=== PATIENT | female | born 1970 ===

== ENCOUNTER 2021-07-17 08:22 | Outpatient (REF) | payer OTHER, SELFPAY ==
[2021-07-17 11:04] LABS: MANUAL DIFF FLAG NO
[2021-07-17 11:19] LABS: Basophils Absolute Auto 0.1 X10*3/uL (0.0-0.2); Basophils Percent Auto 1.2 % (0-2); Eosinophils Absolute Auto 0.5 X10*3/uL (0.0-0.4); Eosinophils Percent Auto 10.7 % (0-4); Hematocrit 41.5 % (37.0-47.0); Hemoglobin 13.9 g/dl (12.0-16.0); Imm Gran Abs Auto 0.01 X10*3/uL (0.00-0.03); Imm Gran Pct Auto 0.2 % (0.0-0.4); Lymphocytes Absolute Auto 1.4 X10*3/uL (1.2-4.9); Lymphocytes Percent Auto 32.5 % (20-40); Mean Corpuscular HGB Conc 33.5 g/dl (31.0-35.0); Mean Corpuscular Hemoglobin 28.8 pg (27.0-33.0); Mean Corpuscular Volume 86.1 fL (80.0-98.0); Monocytes Absolute Auto 0.4 X10*3/uL (0.1-1.2); Monocytes Percent Auto 9.8 % (2-11); Neutrophils Absolute Auto 1.9 x10*3/uL (2.0-8.3); Neutrophils Percent Auto 45.6 % (45-73); Platelet Count 220 X10*3/uL (160-400); Red Blood Count 4.82 X10*6/uL (4.20-5.50); White Blood Count 4.2 X10*3/uL (4.8-10.8)
[2021-07-17 11:37] LABS: Alanine Aminotransferase 80 U/L (0-31); Albumin Level 4.3 g/dL (3.5-5.0); Alkaline Phosphatase 156 U/L (39-117); Anion Gap 9 (12-20); Aspartate Amino Transferase 59 U/L (5-31); Bilirubin Total 0.7 mg/dL (0.0-1.0); Blood Urea Nitrogen 12 mg/dL (9-16); Calcium 9.9 mg/dL (8.4-10.2); Carbon Dioxide 28 mmol/L (22-29); Chloride 105 mmol/L (96-108); Cholesterol 223 mg/dL; Estimated Glomerular Filt Rate > 60; Glucose Fasting 94 mg/dL (60-99); HDL Cholesterol 62 mg/dL; LDL Cholesterol Calculated 135 mg/dl; Potassium 4.3 mmol/L (3.3-5.1); Sodium 138 mmol/L (135-145); Total Protein 7.2 g/dL (6.5-8.0); Triglycerides 131 mg/dL
[2021-07-17 11:54] LABS: TSH reflex Free T4 0.88 uIU/mL (0.32-4.0)
== END 2021-07-17 08:23 | disposition home or self-care (01) ==
LOC: HO.HMGCLDS 08:22
PROVIDERS: Visit Provider Internal Medicine
DX: Z00.01 Encounter for general adult medical examination with abnormal findings (principal); E03.8 Other specified hypothyroidism; E66.09 Other obesity due to excess calories; H91.92 Unspecified hearing loss, left ear
CPT/HCPCS: 36415; 80053; 80061; 84443; 85025

== ENCOUNTER 2021-11-03 12:06 | Emergency (ER) | payer OTHER, SELFPAY ==
--- NOTE | ~2021-11-03 | CT_ITS ---
EXAMINATION: CT ABDOMEN AND PELVIS WITHOUT CONTRAST CLINICAL INFORMATION: Abdominal pain COMPARISON: None TECHNIQUE: Multidetector volumetric imaging was performed from the superior aspect of the liver through the pubic symphysis. Sagittal and coronal reformatted images were obtained on the technologist's workstation. This CT examination was performed using dose optimization techniques as appropriate, variously including the following: *Automated exposure control *Adjustment of mA and/or kV according to patient size (this includes techniques or standardized protocols for targeted exams where dose is matched to indication/reason for exam; i.e. extremities or head) *Use of iterative reconstruction technique DLP: 574r mGy-cm FINDINGS: LUNG BASES: The visualized lung bases are unremarkable. LIVER, GALLBLADDER, AND BILIARY TREE: The liver is normal in size, shape, and attenuation. No focal hepatic lesion or biliary ductal dilatation is present. The gallbladder is unremarkable with no evidence of radiopaque gallstones, gallbladder wall thickening, or obvious pericholecystic inflammatory changes. PANCREAS: Unremarkable. SPLEEN: Unremarkable. A tiny splenule is seen. ADRENAL GLANDS: Unremarkable. KIDNEYS AND URETERS: The kidneys are normal in size, shape, and attenuation. There is a 2 cm Bosniak class I right renal cyst present which needs no further imaging or follow-up. No solid renal masses are seen. No hydronephrosis, hydroureter, or calculi seen. No perinephric stranding. BLADDER: Unremarkable. GASTROINTESTINAL TRACT: The small and large bowel are unremarkable aside from scattered colonic diverticula without diverticulitis.. The appendix is unremarkable. ABDOMINAL WALL: No significant hernia is appreciated. LYMPH NODES: Normal. VASCULAR: Unremarkable. PELVIC VISCERA: Unremarkable. OSSEOUS STRUCTURES: Unremarkable. CT/CT abdomen pelvis wo con IMPRESSION: No significant abnormality is detected. Fleischner guidelines were followed.
--- NOTE | ~2021-11-03 | US_ITS ---
EXAMINATION: US ABDOMEN LIMITED CLINICAL INFORMATION: Right upper quadrant abdominal pain. Elevated LFTs.. COMPARISON: CT from today. TECHNIQUE: Real-time imaging of the right upper quadrant abdominal viscera. FINDINGS: PANCREAS: Normal. LIVER: Normal. The liver is normal in size. The liver contour is normal. Parenchymal echogenicity is normal. No focal hepatic lesion. There is no intrahepatic biliary duct dilatation seen. GALLBLADDER: Normal. The gallbladder is physiologically distended without evidence of stones, sludge, polyps, wall thickening or pericholecystic fluid. COMMON BILE DUCT: Normal in caliber measuring 0.3 cm in diameter. RIGHT KIDNEY: Septated cyst at the midpole measuring 1.8 cm . Thin internal septation without nodularity or Doppler vascularity. No hydronephrosis. No renal calculi or solid parenchymal lesions. The kidney measures 10.7 cm in maximum dimension. FREE FLUID: None. US/US abdomen limited IMPRESSION: No acute abnormality. Normal appearance of the gallbladder. Cyst with thin internal septation of the right kidney. This is likely Bosniak 2.
[2021-11-03 12:49] VITALS: BP 139/82; PULSE 64; RESP 17; TEMP 36.3; O2SAT 99; BMI 32.3
[2021-11-03] MEDS: Ondansetron ODT 4 MG TAB.RAPDIS TRANSLINGU (15:58)
[2021-11-03 16:05] LABS: MANUAL DIFF FLAG NO
[2021-11-03 16:07] LABS: Basophils Percent Auto 0.8 % (0-2); Eosinophils Absolute Auto 0.3 X10*3/uL (0.0-0.4); Eosinophils Percent Auto 5.9 % (0-4); Hemoglobin 13.6 g/dl (12.0-16.0); Imm Gran Abs Auto 0.02 X10*3/uL (0.00-0.03); Imm Gran Pct Auto 0.4 % (0.0-0.4); Lymphocytes Absolute Auto 1.2 X10*3/uL (1.2-4.9); Lymphocytes Percent Auto 26.1 % (20-40); Mean Corpuscular Hemoglobin 28.4 pg (27.0-33.0); Mean Corpuscular Volume 83.5 fL (80.0-98.0); Mean Platelet Volume 10.1 fL (9.4-12.3); Monocytes Absolute Auto 0.4 X10*3/uL (0.1-1.2); Monocytes Percent Auto 8.3 % (2-11); Neutrophils Absolute Auto 2.8 x10*3/uL (2.0-8.3); Neutrophils Percent Auto 58.5 % (45-73); Platelet Count 176 X10*3/uL (160-400); Red Blood Count 4.79 X10*6/uL (4.20-5.50); Red Cell Distribution Width 12.1 % (11.0-16.0); White Blood Count 4.7 X10*3/uL (4.8-10.8)
[2021-11-03 16:33] LABS: Alanine Aminotransferase 67 U/L (0-31); Albumin Level 4.4 g/dL (3.5-5.0); Alkaline Phosphatase 164 U/L (39-117); Anion Gap 13 (12-20); Aspartate Amino Transferase 54 U/L (5-31); Bilirubin Total 0.7 mg/dL (0.0-1.0); Blood Urea Nitrogen 9 mg/dL (9-16); Calcium 9.3 mg/dL (8.4-10.2); Carbon Dioxide 25 mmol/L (22-29); Chloride 105 mmol/L (96-108); Creatinine Clr Calc Pharmacy 80.8; Estimated Glomerular Filt Rate > 60; Glucose Random 126 mg/dL (60-115); Lipase 27 U/L (8-78); Potassium 3.8 mmol/L (3.3-5.1); Sodium 139 mmol/L (135-145); Total Protein 7.1 g/dL (6.5-8.0)
--- NOTE | 2021-11-03 17:26 | ED_ITS ---
HPI - Abdominal Pain General Chief Complaint: Abdominal Pain Stated Complaint: abd pain, called Time Seen by Provider: 11/03/21 17:51 Source: patient Mode of arrival: ambulatory Limitations: no limitations History of Present Illness HPI narrative: 51-year-old female presents for right upper abdominal pain that worsens when she eats. Has been present for approximately 2-3 days, and is accompanied by nausea. She was evaluated at urgent care today and was referred to the emergency department for suspected cholecystitis. MD elicited complaint: abdominal pain Pertinent past history: none Onset (ago): day(s) (3) Pain Consistency: constant Location: RUQ Severity: moderate Pain scale (0-10): 6 Quality: aching Radiation: none Migration to: no migration Exacerbating factors: eating and movement Relieving factors: nothing Associated symptoms: nausea Related Data Previous Rx's Medication Instructions Recorded levothyroxine 88 mcg tablet 88 mcg PO DAILY 90 days #90 tabs 10/21/21 Allergies Allergy/AdvReac Type Severity Reaction Status Date / Time shellfish derived Allergy Unknown rash Verified 11/03/21 11:28 acetaminophen [From Percocet] AdvReac Mild Hypotension Verified 11/03/21 11:28 oxycodone [From Percocet] AdvReac Mild Hypotension Verified 11/03/21 11:28 ibuprofen [From Motrin] AdvReac Palpitation Verified 11/03/21 19:38 s Review of Systems Review of Systems Constitutional: No Weight loss, No Fever, No Chills, No Night Sweats, No Fatigue, No Malaise ENT/Mouth: No Hearing loss, No Ear Pain, No Nasal Congestion, No Sinus Pain, No Hoarseness, No sore throat, No Rhinorrhea, No Swallowing Difficulty Eyes: No Eye Pain, No Swelling, No Redness, No Foreign Body, No Discharge, No Vision Changes Cardiovascular: No Chest Pain, No SOB, No Dyspnea on Exertion, No Orthopnea, No Edema, No Palpitations Respiratory: No Cough, No Sputum, No Wheezing, No Smoke Exposure, No Dyspnea Gastrointestinal: Positive Nausea, no Vomiting, no Diarrhea, positive abdominal Pain, No Hematochezia, No Melena Genitourinary: no irregular bleeding, No Dysuria, No Urinary Frequency, No Hematuria, No Urinary Incontinence, No Urgency, No Flank Pain, No Urinary Flow Changes, No Hesitancy Musculoskeletal: No joint pain, No Myalgias, No Joint Swelling Skin: No Skin Lesions, No rash Neuro: No Weakness, No Numbness, No Paresthesias, No Loss of Consciousness, No Dizziness, No Headache Psych: No Anxiety/Panic, No Depression, No SI/HI/AH/VH, No Social Issues Heme/Lymph: No Bruising, No Bleeding,No Lymphadenopathy Endocrine: No Polyuria, No Polydipsia, No Temperature Intolerance Yes all other systems are reviewed and are negative [facility] Past Medical History Attestation statement: The following information was validated with the patient. Source: old records reviewed Medical History Asthma Hyperthyroidism Social History Social History Housing: House Patient Tobacco Use Status: Never used Tobacco Advance Directives: No Advance Directives Information Provided: No Current occupational status: employed Physical Exam ED Vital Signs: Vital Signs - 24 hr 11/03/21 12:49 11/03/21 20:43 Temperature 97.3 F 99.0 F Pulse Rate 64 61 Respiratory Rate 17 18 Blood Pressure 139/82 124/69 Pulse Oximetry 99 98 Oxygen Delivery Method Room Air Room Air BMI result Body Mass Index 32.3 Appearance: Alert. Oriented X3. No acute distress. Eyes: Pupils equal, round and reactive to light. Sclera nonicteric. ENT: Pharynx normal. Neck: Normal inspection. Neck supple. CVS: Normal heart rate and rhythm. Pulses normal. Respiratory: No respiratory distress. Breath sounds normal. Abdomen: Soft and positive McBurney's. No distention or rigidity noted. Skin: Skin warm and dry. Normal skin color. Normal skin turgor. Extremities: No lower extremity edema. Gait well-balanced well coordinated. Neuro: No motor deficit. No sensory deficit. Cranial nerves 2-12 intact. Course Course Course Narrative: 51-year-old female presents with 3 days of abdominal pain and nausea. Has a history of elevated LFTs. Was evaluated at urgent care earlier today and was referred to ED for suspected cholecystitis versus cholelithiasis. Lab values drawn while patient was in the emergency department waiting room. Elevated AST ALT alk-phos consistent with prior values dating back to July of 2021. Will order CT scan and right upper quadrant abdominal U/S. 19:45 order for Fioricet. Patient declined Toradol that was prescribed earlier. Stated that NSAIDs give her elevated heart rates. CT and abdominal ultrasound negative for acute findings. Will have patient follow-up with Gastroenterology. She does have someone she is established with at [facility], but would like a referral at this facility. referral to Dr. Benson. Patient verbalized understanding of and agrees to plan of care discharge home. Verbalized understanding of signs and symptoms indicating need for emergent intervention. MDM - Abdominal Pain Differential Diagnosis Differential diagnosis: Likely abdominal pain, calculus of kidney, gastroenteritis and pancreatitis Differential diagnosis narrative:: Cholecystitis, cholelithiasis Medical Records Attestation: I reviewed the patient's medical records. Lab Data Attestation: I reviewed the patient's lab results. Result diagrams: 11/03/21 16:00 11/03/21 16:00 Labs: Lab Results 11/03/21 11/03/21 Range/Units 16:00 16:00 WBC 4.7 L (4.8-10.8) X10*3/uL RBC 4.79 (4.20-5.50) X10*6/uL Hgb 13.6 (12.0-16.0) g/dl Hct 40.0 (37.0-47.0) % MCV 83.5 (80.0-98.0) fL MCH 28.4 (27.0-33.0) pg MCHC 34.0 (31.0-35.0) g/dl RDW 12.1 (11.0-16.0) % Plt Count 176 (160-400) X10*3/uL MPV 10.1 (9.4-12.3) fL Immature Gran % (Auto) 0.4 (0.0-0.4) % Neut % (Auto) 58.5 (45-73) % Lymph % (Auto) 26.1 (20-40) % [place] % (Auto) 8.3 (2-11) % Eos % (Auto) 5.9 H (0-4) % Baso % (Auto) 0.8 (0-2) % Lymph # (Auto) 1.2 (1.2-4.9) X10*3/uL [place] # (Auto) 0.4 (0.1-1.2) X10*3/uL Eos # (Auto) 0.3 (0.0-0.4) X10*3/uL Baso # (Auto) 0.0 (0.0-0.2) X10*3/uL Abs Immat Gran (auto) 0.02 (0.00-0.03) X10*3/uL Absolute Neuts (auto) 2.8 (2.0-8.3) x10*3/uL Absolute Nucleated RBC 0.000 (0.0-0.012) X10*3/uL Nucleated RBC % (auto) 0.0 (0.0-0.2) /100WBC Sodium 139 (135-145) mmol/L Potassium 3.8 (3.3-5.1) mmol/L Chloride 105 (96-108) mmol/L Carbon Dioxide 25 (22-29) mmol/L Anion Gap 13 (12-20) BUN 9 (9-16) mg/dL Creatinine 0.73 (0.5-1.4) mg/dL Estim Creat Clear Calc 80.8 Estimated GFR > 60 Random Glucose 126 H (60-115) mg/dL Calcium 9.3 D (8.4-10.2) mg/dL Total Bilirubin 0.7 (0.0-1.0) mg/dL AST 54 H (5-31) U/L ALT 67 H (0-31) U/L Alkaline Phosphatase 164 H (39-117) U/L Total Protein 7.1 (6.5-8.0) g/dL Albumin 4.4 (3.5-5.0) g/dL Lipase 27 (8-78) U/L Imaging Data CT scan - abdomen: Attestation: I personally reviewed and interpreted this imaging study as follows: Radiologist's impression: FINDINGS: LUNG BASES: The visualized lung bases are unremarkable.? LIVER, GALLBLADDER, AND BILIARY TREE: The liver is normal in size, shape, and attenuation. No focal hepatic lesion or biliary ductal dilatation is present. The gallbladder is unremarkable with no evidence of radiopaque gallstones, gallbladder wall thickening, or obvious pericholecystic inflammatory changes.? PANCREAS: Unremarkable.? SPLEEN: Unremarkable. A tiny splenule is seen. ADRENAL GLANDS: Unremarkable.? KIDNEYS AND URETERS: The kidneys are normal in size, shape, and attenuation. There is a 2 cm Bosniak class I right renal cyst present which needs no further imaging or follow-up. No solid renal masses are seen. No hydronephrosis, hydroureter, or calculi seen. No perinephric stranding. ? BLADDER: Unremarkable.? GASTROINTESTINAL TRACT: The small and large bowel are unremarkable aside from scattered colonic diverticula without diverticulitis.. The appendix is unremarkable.? ABDOMINAL WALL: No significant hernia is appreciated.? LYMPH NODES: Normal. VASCULAR: Unremarkable. PELVIC VISCERA: Unremarkable.? OSSEOUS STRUCTURES: Unremarkable.? CT/CT abdomen pelvis wo con IMPRESSION: No significant abnormality is detected.? ? Fleischner guidelines were followed. Discharge Plan Discharge Clinical Impression: Abdominal pain, Elevated liver enzymes Patient Disposition: Home, Self-Care Instructions: Low Fat Diet (ED), Abdominal Pain (ED) Additional Instructions: You were evaluated for abdominal pain. Your liver enzymes are elevated. They are similar to your prior values in July of 2021. Please follow-up with Gastroenterology. I have referred you to Dr. Benson. Please call and request an appointment for evaluation. Your CT scan and ultrasound of the gallbladder are negative for acute findings. Drink plenty of fluids. Please follow a low-fat gallbladder diet. This may improve your symptoms. Thank you for choosing this emergency department for evaluation. Please follow-up with primary care physician as needed. Return to the emergency department for any new, concerning, or worsening symptoms. Prescriptions: No Action levothyroxine 88 mcg tablet 88 mcg PO DAILY 90 Days Qty: 90 0RF Referrals: Dior Benson MD [Physician] - 1 week (Elevated liver enzymes.) Stand Alone Forms: Work/School Release Interventions: ED Discharge Assessment Last Done: 11/03/21 20:48 Discharge Date/Time: 11/03/21 20:50
[2021-11-03] MEDS: 0.9 % Sodium Chloride 1,000 ML 999 ML IVCONT (19:24)
--- NOTE | 2021-11-03 19:40 | PC.NURSE ---
per pt, Motrin/ibuprofen makes my hr fast i do not want the toradol.
[2021-11-03] MEDS: Butalb/Acetamin/Caff 50/325/40 TABLET 1 TAB PO (19:58)
[2021-11-03 20:43] VITALS: BP 124/69; PULSE 61; RESP 18; TEMP 37.2; O2SAT 98
== END 2021-11-03 20:50 | disposition home or self-care (01) ==
PROVIDERS: Emergency Provider Emergency Medicine; PCP Internal Medicine
DX: R10.11 Right upper quadrant pain (principal); R74.8 Abnormal levels of other serum enzymes
CPT/HCPCS: 36415; 74176; 76705; 80053; 83690; 85025; 96361; 96374; 99283; 99284

== ENCOUNTER 2021-12-01 14:17 | Outpatient (REF) | payer OTHER, SELFPAY ==
[2021-12-01 15:17] LABS: Gamma Glutamyl Transpeptidase 504 U/L (7-33)
[2021-12-01 15:36] LABS: Thyroid Stimulating Hormone 0.34 uIU/mL (0.32-4.0)
[2021-12-02 09:39] LABS: HBS Num1 > 1000.00 mIU/mL (0-7.99); HBc Num1 0.07 S/CO (0.00-0.79); Hepatitis B Core Antibody Nonreactive (Nonreactive); Hepatitis B Surface Antigen Negative (Negative); ~Hepatitis B Surface Antibody REACTIVE (Nonreactive); ~Hepatitis C Antibody Nonreactive (Nonreactive)
[2021-12-03 04:41] LABS: Hepatitis A Antibody IgM 0.19 Index (0-0.79); ~Hepatitis A Antibody IgM Nonreactive (Nonreactive)
[2021-12-03 15:02] LABS: Alpha 1 Anti-trypsin 152 mg/dL (83-199); Ceruloplasmin 34 mg/dL (18-53)
[2021-12-06 21:26] LABS: ANA Pattern 2 Nuclear, Centromere; Anti Nuclear Antibody Screen POSITIVE (NEGATIVE)
[2021-12-07 11:37] LABS: Smooth Muscle Antibody <20 U (<20)
[2021-12-08 11:46] LABS: Mitochondrial Antibodies POSITIVE (NEGATIVE)
== END 2021-12-01 14:18 | disposition home or self-care (01) ==
LOC: HO.LAB 14:17
PROVIDERS: Visit Provider Physician Assistant
DX: K59.09 Other constipation (principal); R74.01 Elevation of levels of liver transaminase levels; R74.8 Abnormal levels of other serum enzymes; R79.89 Other specified abnormal findings of blood chemistry
CPT/HCPCS: 36415; 82103; 82390; 82977; 84443; 86015; 86038; 86039; 86255; 86256; 86704; 86706; 86709; 86803; 87340

== ENCOUNTER 2021-12-02 12:34 | Outpatient (REF) | payer OTHER, SELFPAY | END 2021-12-02 12:35 | disposition home or self-care (01) | LOC: HO.LNP 12:34 | PROVIDERS: Visit Provider Physician Assistant | DX: A04.8 Other specified bacterial intestinal infections (principal) | CPT/HCPCS: 87338 ==

== ENCOUNTER 2021-12-06 16:28 | Emergency (ER) | payer OTHER, SELFPAY ==
[2021-12-06 18:19] VITALS: BP 123/65; PULSE 64; RESP 18; TEMP 36.7; O2SAT 100; BMI 32.3
[2021-12-06 18:35] LABS: MANUAL DIFF FLAG NO
[2021-12-06 18:40] LABS: Basophils Percent Auto 0.8 % (0-2); Eosinophils Absolute Auto 0.1 X10*3/uL (0.0-0.4); Eosinophils Percent Auto 1.7 % (0-4); Hematocrit 39.5 % (37.0-47.0); Hemoglobin 13.6 g/dl (12.0-16.0); Imm Gran Abs Auto 0.02 X10*3/uL (0.00-0.03); Imm Gran Pct Auto 0.4 % (0.0-0.4); Lymphocytes Absolute Auto 1.1 X10*3/uL (1.2-4.9); Lymphocytes Percent Auto 20.8 % (20-40); Mean Corpuscular HGB Conc 34.4 g/dl (31.0-35.0); Mean Corpuscular Hemoglobin 28.4 pg (27.0-33.0); Mean Corpuscular Volume 82.5 fL (80.0-98.0); Mean Platelet Volume 10.1 fL (9.4-12.3); Monocytes Absolute Auto 0.4 X10*3/uL (0.1-1.2); Monocytes Percent Auto 7.2 % (2-11); Neutrophils Absolute Auto 3.6 x10*3/uL (2.0-8.3); Neutrophils Percent Auto 69.1 % (45-73); Platelet Count 201 X10*3/uL (160-400); Red Blood Count 4.79 X10*6/uL (4.20-5.50); White Blood Count 5.3 X10*3/uL (4.8-10.8)
[2021-12-06 19:09] LABS: Alanine Aminotransferase 56 U/L (0-31); Albumin Level 4.5 g/dL (3.5-5.0); Alkaline Phosphatase 155 U/L (39-117); Anion Gap 14 (12-20); Aspartate Amino Transferase 54 U/L (5-31); Bilirubin Total 0.7 mg/dL (0.0-1.0); Blood Urea Nitrogen 9 mg/dL (9-16); Calcium 9.9 mg/dL (8.4-10.2); Carbon Dioxide 23 mmol/L (22-29); Chloride 103 mmol/L (96-108); Creatinine Clr Calc Pharmacy 73.8; Estimated Glomerular Filt Rate > 60; Glucose Random 117 mg/dL (60-115); Lipase 14 U/L (8-78); Potassium 4.1 mmol/L (3.3-5.1); Sodium 136 mmol/L (135-145); Total Protein 7.3 g/dL (6.5-8.0)
[2021-12-06 19:25] LABS: Appearance Urine HAZY; Color Urine YELLOW; Glucose Urine UA NEG (NEG); Leukocyte Esterase Urine NEG (NEG); Nitrite Urine NEG (NEG); UACC Culture Trigger NO; Urine Blood TRACE (NEG); Urine Ketones NEG (NEG); Urine Protein NEG (NEG-TRACE)
[2021-12-06 19:30] LABS: WBC Urine 0 /HPF (0-4)
[2021-12-06 19:31] LABS: Amorphous Sediment Urine 1+ /LPF; Bacteria Urine 1+ /LPF; RBC Urine 0-2 /HPF (0); Squamous Epithelial Cell Urine 1+ /LPF
[2021-12-07 00:13] LABS: UPreg QC Valid YES; Urine Pregnancy NEGATIVE (NEGATIVE)
--- NOTE | 2021-12-07 00:42 | ED_ITS ---
HPI - General Adult General Chief complaint: Abdominal Pain Stated complaint: Pain through Back Dizzy Fever Time Seen by Provider: 12/06/21 23:54 Source: patient Mode of arrival: ambulatory Limitations: no limitations History of Present Illness HPI narrative: 51 yold female presents to the ED for intermittent right upper qaudrant abdominal pain/flank pain. patient was seen her for the same similiar presentation which showed fatty liver with elevated liver enzymes. THere was no gallstones. patient states she went to another hospital with normal imaged and two gasteroenterologists and still has the pain. patient was seen last night at [facility] and she states she had a normal workup. patient denies any recent trauma, shorteness of breath, chest pain, pluerisy, dysuria, hemautira, fever, chills, vomitting, vaginal bleeding, control use, leg swelling, calf pain or rectal bleeding. patient admits to [facility]. Related Data Previous Rx's Medication Instructions Recorded levothyroxine 88 mcg tablet 88 mcg PO DAILY 90 days #90 tabs 10/21/21 tramadol 50 mg tablet 50 mg PO DAILY PRN pain 10 days 11/05/21 #10 tabs bisacodyl 5 mg tablet,delayed 10 mg PO ONCE colonoscopy prep 1 11/10/21 release (Dulcolax (bisacodyl)) day #2 tabs polyethylene glycol 3350 17 238 g PO ONCE 1 day #238 grams 11/10/21 gram/dose oral powder (Miralax) cyclobenzaprine 10 mg tablet 10 mg PO TID PRN muscle spasm 7 12/07/21 days #21 tabs Allergies Allergy/AdvReac Type Severity Reaction Status Date / Time shellfish derived Allergy Unknown rash Verified 12/06/21 18:19 oxycodone [From Percocet] AdvReac Mild Hypotension Verified 12/06/21 18:19 ibuprofen [From Motrin] AdvReac Palpitation Verified 12/06/21 18:19 s [facility] Past Medical History Medical History Asthma Hyperthyroidism Family History Family History (Updated 11/10/21 @ 13:07 by Casandra Childs PA-C) Unknown No family history of colorectal cancer Social History Social History (Updated 11/10/21 @ 13:09 by Casandra Childs PA-C) Household Members Other:: - 1 son at home Housing: House Patient Tobacco Use Status: Never used Tobacco Current occupational status: employed Physical Exam ED Vital Signs: Vital Signs - 24 hr 12/06/21 18:19 Temperature 98.1 F Pulse Rate 64 Respiratory Rate 18 Blood Pressure 123/65 Pulse Oximetry 100 Oxygen Delivery Method Room Air BMI result Body Mass Index 32.3 Const General: cooperative, healthy appearing, comfortable, no acute distress, well developed, alert, awake and Physically active Orientation/consciousness: oriented to time and patient oriented x3 HENMT Head: Yes normal to inspection, Yes No palpable skull fracture present, Yes norm ocephalic, Yes atraumatic and No abrasion Eyes General: appearance normal, both eyes and all related structures Neck Neck: Yes normal visual inspection, Yes full ROM, Yes no lymphadenopathy, Yes no meningeal signs, Yes trachea midline, Yes supple, No anterior neck swelling and No tender Chest Chest palpation & inspection: normal inspection of the chest and normal palpation of entire chest wall Resp Effort & Inspection: normal respiratory effort and able to speak in complete sentences Auscultation: clear to auscultation bilaterally Cardio Jugular venous distension: no JVD Heart sounds: S1 normal heart sound present and S2 normal heart sound present GI Inspection: Yes normal to inspection and No abdominal wall ecchymosis Palpation (GI): Soft to palpation, not firm, nontender, no guarding and not rigid General: No CVA tenderness and Yes no CVA tenderness Back/Spine/Pelvis Other: Positive for right sided back pain on range of motion. Back: no CVA tenderness, No CVA tenderness and No back tenderness Skin General skin exam: no rashes or lesions noted, elasticity normal and turgor normal Neuro General: oriented to time, patient oriented x3, gait normal, no meningeal signs and CN's II-XI intact bilaterally Cranial nerves: Yes CN's II-XII intact bilaterally Extrem General: Yes normal to inspection and Yes full ROM Psych Appearance: grossly normal, well kempt and not disheveled Course Course Course Narrative: Labs were ordered by triage. Reevaluation(s) Reevaluation #1: Patient labs came back at baseline including LFTs. Presently no abdominal or spine tenderness. I received [facility] notes and review them. Ultrasound of abdomen showed same hepaitis steatosis. Labs were at baseline. No need for repeat imaging. Not suspecting any medical/surgical etiology of abdomen/pelvis/spine. Patient states she has never taken any pain meds. patient not able to take tylenol. patient does not want narcotics and can not take NSAIDS ( palpitations). patient informed to follow up [facility] PCP. states this episode of pain began after patient turned her back awkardly waking up from sleep suddenly and than had the right sided back pain radiationg to the abdomen that was worse on movement. With this information will discharge with muscle relaxer Time: 12:56 Medical Decision Making MDM Narrative Medical decision making narrative: abdominal pain. muscle spasm Lab Data Result diagrams: 12/06/21 18:30 12/06/21 18:30 Labs: Lab Results 12/06/21 12/06/21 12/06/21 Range/Units 18:30 18:30 19:13 WBC 5.3 (4.8-10.8) X10*3/uL RBC 4.79 (4.20-5.50) X10*6/uL Hgb 13.6 (12.0-16.0) g/dl Hct 39.5 (37.0-47.0) % MCV 82.5 (80.0-98.0) fL MCH 28.4 (27.0-33.0) pg MCHC 34.4 (31.0-35.0) g/dl RDW 12.0 (11.0-16.0) % Plt Count 201 (160-400) X10*3/uL MPV 10.1 (9.4-12.3) fL Immature Gran % (Auto) 0.4 (0.0-0.4) % Neut % (Auto) 69.1 (45-73) % Lymph % (Auto) 20.8 (20-40) % [place] % (Auto) 7.2 (2-11) % Eos % (Auto) 1.7 (0-4) % Baso % (Auto) 0.8 (0-2) % Lymph # (Auto) 1.1 L (1.2-4.9) X10*3/uL [place] # (Auto) 0.4 (0.1-1.2) X10*3/uL Eos # (Auto) 0.1 (0.0-0.4) X10*3/uL Baso # (Auto) 0.0 (0.0-0.2) X10*3/uL Abs Immat Gran (auto) 0.02 (0.00-0.03) X10*3/uL Absolute Neuts (auto) 3.6 (2.0-8.3) x10*3/uL Absolute Nucleated RBC 0.000 (0.0-0.012) X10*3/uL Nucleated RBC % (auto) 0.0 (0.0-0.2) /100WBC Sodium 136 (135-145) mmol/L Potassium 4.1 (3.3-5.1) mmol/L Chloride 103 (96-108) mmol/L Carbon Dioxide 23 (22-29) mmol/L Anion Gap 14 (12-20) BUN 9 (9-16) mg/dL Creatinine 0.80 (0.5-1.4) mg/dL Estim Creat Clear Calc 73.8 Estimated GFR > 60 Random Glucose 117 H (60-115) mg/dL Calcium 9.9 D (8.4-10.2) mg/dL Total Bilirubin 0.7 (0.0-1.0) mg/dL AST 54 H (5-31) U/L ALT 56 H (0-31) U/L Alkaline Phosphatase 155 H (39-117) U/L Total Protein 7.3 (6.5-8.0) g/dL Albumin 4.5 (3.5-5.0) g/dL Lipase 14 (8-78) U/L Urine Color YELLOW Urine Appearance HAZY Urine pH 7.0 (5.0-8.0) Ur Specific [place] 1.010 (1.005-1.025) Urine Protein NEG (NEG-TRACE) MG/DL Urine Glucose (UA) NEG (NEG) MG/DL Urine Ketones NEG (NEG) MG/DL Urine Blood TRACE (NEG) Urine Nitrite NEG (NEG) Ur Leukocyte Esterase NEG (NEG) Urine RBC 0-2 (0) /HPF Urine WBC 0 (0-4) /HPF Ur Squamous Epith Cells 1+ /LPF Amorphous Sediment 1+ /LPF Urine Bacteria 1+ /LPF Urine Test (NEGATIVE) 12/06/21 Range/Units 19:13 WBC (4.8-10.8) X10*3/uL RBC (4.20-5.50) X10*6/uL Hgb (12.0-16.0) g/dl Hct (37.0-47.0) % MCV (80.0-98.0) fL MCH (27.0-33.0) pg MCHC (31.0-35.0) g/dl RDW (11.0-16.0) % Plt Count (160-400) X10*3/uL MPV (9.4-12.3) fL Immature Gran % (Auto) (0.0-0.4) % Neut % (Auto) (45-73) % Lymph % (Auto) (20-40) % [place] % (Auto) (2-11) % Eos % (Auto) (0-4) % Baso % (Auto) (0-2) % Lymph # (Auto) (1.2-4.9) X10*3/uL [place] # (Auto) (0.1-1.2) X10*3/uL Eos # (Auto) (0.0-0.4) X10*3/uL Baso # (Auto) (0.0-0.2) X10*3/uL Abs Immat Gran (auto) (0.00-0.03) X10*3/uL Absolute Neuts (auto) (2.0-8.3) x10*3/uL Absolute Nucleated RBC (0.0-0.012) X10*3/uL Nucleated RBC % (auto) (0.0-0.2) /100WBC Sodium (135-145) mmol/L Potassium (3.3-5.1) mmol/L Chloride (96-108) mmol/L Carbon Dioxide (22-29) mmol/L Anion Gap (12-20) BUN (9-16) mg/dL Creatinine (0.5-1.4) mg/dL Estim Creat Clear Calc Estimated GFR Random Glucose (60-115) mg/dL Calcium (8.4-10.2) mg/dL Total Bilirubin (0.0-1.0) mg/dL AST (5-31) U/L ALT (0-31) U/L Alkaline Phosphatase (39-117) U/L Total Protein (6.5-8.0) g/dL Albumin (3.5-5.0) g/dL Lipase (8-78) U/L Urine Color Urine Appearance Urine pH (5.0-8.0) Ur Specific [place] (1.005-1.025) Urine Protein (NEG-TRACE) MG/DL Urine Glucose (UA) (NEG) MG/DL Urine Ketones (NEG) MG/DL Urine Blood (NEG) Urine Nitrite (NEG) Ur Leukocyte Esterase (NEG) Urine RBC (0) /HPF Urine WBC (0-4) /HPF Ur Squamous Epith Cells /LPF Amorphous Sediment /LPF Urine Bacteria /LPF Urine Test NEGATIVE (NEGATIVE) Discharge Plan Discharge Clinical Impression: Abdominal pain, Muscle spasm Patient Disposition: Home, Self-Care Instructions: Abdominal Pain (ED), Muscle Spasm (ED) Additional Instructions: Please follow up with your PCP and assistant community manager. Return to the ED for any abdominal pain, flank pain, chest pain, shortness of breath, chest pain on inspiration, dysuria, hematuria, rectal bleeding, urinary/bowel incontinence, worsening back pain, or any other concerning symptoms. Prescriptions: New cyclobenzaprine 10 mg tablet 10 mg PO TID PRN (Reason: muscle spasm) 7 Days Qty: 21 0RF Rx Instructions: side effect is drowsiness. Do not take at work or while driving. No Action levothyroxine 88 mcg tablet 88 mcg PO DAILY 90 Days Qty: 90 0RF tramadol 50 mg tablet 50 mg PO DAILY PRN (Reason: pain) 10 Days Qty: 10 0RF bisacodyl [Dulcolax (bisacodyl)] 5 mg tablet,delayed release (DR/EC) 10 mg PO ONCE 1 Days Qty: 2 0RF Rx Instructions: Take 2 tablets by mouth at 12:00pm the day before your procedure. polyethylene glycol 3350 [Miralax] 17 gram/dose powder 238 g PO ONCE 1 Days Qty: 238 0RF Rx Instructions: Take as directed by mouth the day before your procedure. Referrals: Vladimir Rodriges MD [Primary Care Provider] - (Chronic/back abdominal pain.) Stand Alone Forms: Work/School Release Discharge Date/Time: 12/07/21 02:05 Print Language: Portuguese
== END 2021-12-07 02:05 | disposition home or self-care (01) ==
PROVIDERS: Physician Assistant; Emergency Provider Internal Medicine; PCP Internal Medicine
DX: R10.11 Right upper quadrant pain (principal); M62.838 Other muscle spasm
CPT/HCPCS: 36415; 80053; 81001; 81025; 83690; 85025; 99282; 99283

== ENCOUNTER 2022-07-22 12:00 | Outpatient (REF) | payer OTHER, SELFPAY ==
[2022-07-22 14:15] LABS: MANUAL DIFF FLAG NO
[2022-07-22 14:22] LABS: Eosinophils Absolute Auto 0.1 X10*3/uL (0.0-0.4); Eosinophils Percent Auto 3.4 % (0-4); Hematocrit 40.2 % (37.0-47.0); Hemoglobin 13.6 g/dl (12.0-16.0); Imm Gran Abs Auto 0.03 X10*3/uL (0.00-0.03); Imm Gran Pct Auto 0.8 % (0.0-0.4); Lymphocytes Absolute Auto 1.5 X10*3/uL (1.2-4.9); Lymphocytes Percent Auto 38.9 % (20-40); Mean Corpuscular HGB Conc 33.8 g/dl (31.0-35.0); Mean Corpuscular Hemoglobin 28.6 pg (27.0-33.0); Mean Corpuscular Volume 84.6 fL (80.0-98.0); Mean Platelet Volume 10.6 fL (9.4-12.3); Monocytes Absolute Auto 0.4 X10*3/uL (0.1-1.2); Monocytes Percent Auto 10.1 % (2-11); Neutrophils Absolute Auto 1.8 x10*3/uL (2.0-8.3); Neutrophils Percent Auto 45.8 % (45-73); Platelet Count 191 X10*3/uL (160-400); Red Blood Count 4.75 X10*6/uL (4.20-5.50); Red Cell Distribution Width 11.9 % (11.0-16.0); White Blood Count 3.9 X10*3/uL (4.8-10.8)
[2022-07-22 14:49] LABS: Alanine Aminotransferase 33 U/L (0-31); Albumin Level 4.2 g/dL (3.5-5.0); Alkaline Phosphatase 90 U/L (39-117); Anion Gap 12 (12-20); Aspartate Amino Transferase 32 U/L (5-31); Bilirubin Total 0.7 mg/dL (0.0-1.0); Blood Urea Nitrogen 11 mg/dL (9-16); Calcium 9.6 mg/dL (8.4-10.2); Carbon Dioxide 27 mmol/L (22-29); Chloride 104 mmol/L (96-108); Estimated Glomerular Filt Rate > 60; Glucose Random 98 mg/dL (60-115); Potassium 4.2 mmol/L (3.3-5.1); Sodium 139 mmol/L (135-145); Total Protein 6.7 g/dL (6.5-8.0)
== END 2022-07-22 12:01 | disposition home or self-care (01) ==
LOC: HO.HMGCLDS 12:00
PROVIDERS: Visit Provider Physician Assistant
DX: R74.01 Elevation of levels of liver transaminase levels (principal); R79.89 Other specified abnormal findings of blood chemistry
CPT/HCPCS: 36415; 80053; 85025

== ENCOUNTER 2022-08-17 10:58 | Day surgery (SDC) | payer OTHER, SELFPAY ==
[2022-08-12 12:41] VITALS: BMI 32.1
--- NOTE | 2022-08-16 13:22 | P.CONAN_ITS ---
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 (Acute) Acute abdominal pain in right upper quadrant (Acute) Transaminitis (Acute) Chronic constipation (Acute) Elevated alkaline phosphatase level (Acute) Hospital discharge follow-up (Acute) Antimitochondrial antibody positive (Acute) Right upper quadrant pain (Acute) LFT elevation (Acute) Past Medical History Medical History Asthma Hypothyroidism Primary biliary cholangitis Family History Family History Unknown No family history of colorectal cancer Surgical History Surgical History (Updated 08/17/22 @ 11:43 by Anna Joe RN) History of breast lift Hx of section Social History Social History Household Members Other:: - 1 son at home Housing: House Patient Tobacco Use Status: Never used Tobacco e-Cigarette/Vaping Use: Never Used Use of substances other than those prescribed or required for medical reasons: No Are you DNR?: No Advance Directives: No Advance Directives Information Provided: Yes service: No Current occupational status: unemployed Cognitive needs: No Hearing needs: No Vision needs: Yes Meds Allergies Allergy/AdvReac Type Severity Reaction Status Date / Time shellfish derived Allergy Unknown rash Verified 08/17/22 11:44 ibuprofen [From Motrin] AdvReac Mild Palpitation Verified 08/17/22 11:44 s oxycodone [From Percocet] AdvReac Mild Hypotension Verified 08/17/22 11:44 Exam Exam Date and Time: August 16, 2022 1322 Height,Weight and Vital Signs: Height 4 ft 11 in Weight 72.121 kg Pertinent Lab Results Pertinent Lab Results: Laboratory Tests 07/22/22 07/22/22 12:16 12:16 WBC 3.9 L Hgb 13.6 Hct 40.2 Plt Count 191 Sodium 139 Potassium 4.2 Chloride 104 Carbon Dioxide 27 BUN 11 Creatinine 0.81 Assessment and Plan Assessment Anesthesia Assessment: Chart Reviewed Documented by User: More Egan MD 08/17/22 12:29 [facility] Past Medical History Medical History Asthma Hypothyroidism Primary biliary cholangitis Family History Family History Unknown No family history of colorectal cancer Family history of problems with anesthesia: No Surgical History Surgical History (Updated 08/17/22 @ 11:43 by Anna Joe RN) History of breast lift Hx of section History of Problems with Anesthesia: No Social History Social History Household Members Other:: - 1 son at home Housing: House Patient Tobacco Use Status: Never used Tobacco e-Cigarette/Vaping Use: Never Used Use of substances other than those prescribed or required for medical reasons: No Are you DNR?: No Advance Directives: No Advance Directives Information Provided: Yes service: No Current occupational status: unemployed Cognitive needs: No Hearing needs: No Vision needs: Yes Meds Allergies Allergy/AdvReac Type Severity Reaction Status Date / Time shellfish derived Allergy Unknown rash Verified 08/17/22 11:44 ibuprofen [From Motrin] AdvReac Mild Palpitation Verified 08/17/22 11:44 s oxycodone [From Percocet] AdvReac Mild Hypotension Verified 08/17/22 11:44 Exam Airway Mallampati Class: I (cap front tooth) TM Dist: >3cm Neck ROM: Full Heart: rrr Lungs: cta Assessment and Plan Assessment Anesthesia Assessment: Anesthesia Plan Discussed Final Anesthetic Review Family History of Problems with Anesthesia: No History of Problems with Anesthesia: No NPO: Yes ASA Class: II Final Preanesthetic Review: No Changes in Pt Med Stat, Meds/Allgs Chart Reviewed and Consent Obtained/Reviewed Patient Risk: Intermediate Procedure Risk: Intermediate Anesthetic Plan Anesthetic Plan: MAC: Disposition: Standard PACU
--- NOTE | 2022-08-17 09:08 | P.CONAN_ITS ---
[facility] Active Problems Active Problems: All Active Problems (Updated 08/12/22 @ 12:40 by Christine Dahl RN) Encounter for general adult medical examination with abnormal findings (Acute) Other specified hypothyroidism (Acute) Obesity due to excess calories (Acute) Papanicolaou smear declined (Acute) Special needs due to hearing impairment of left ear (Acute) Acute abdominal pain in right upper quadrant (Acute) Transaminitis (Acute) Chronic constipation (Acute) Elevated alkaline phosphatase level (Acute) Hospital discharge follow-up (Acute) Antimitochondrial antibody positive (Acute) Right upper quadrant pain (Acute) LFT elevation (Acute) Past Medical History Medical History Asthma Hypothyroidism Primary biliary cholangitis Family History Family History Unknown No family history of colorectal cancer Family history of problems with anesthesia: No Surgical History Surgical History (Updated 08/17/22 @ 11:43 by Anna Joe RN) History of breast lift Hx of section History of Problems with Anesthesia: No Social History Social History Household Members Other:: - 1 son at home Housing: House Patient Tobacco Use Status: Never used Tobacco e-Cigarette/Vaping Use: Never Used Use of substances other than those prescribed or required for medical reasons: No Are you DNR?: No Advance Directives: No Advance Directives Information Provided: Yes service: No Current occupational status: unemployed Cognitive needs: No Hearing needs: No Vision needs: Yes Meds Allergies Allergy/AdvReac Type Severity Reaction Status Date / Time shellfish derived Allergy Unknown rash Verified 08/17/22 11:44 ibuprofen [From Motrin] AdvReac Mild Palpitation Verified 08/17/22 11:44 s oxycodone [From Percocet] AdvReac Mild Hypotension Verified 08/17/22 11:44 Exam Exam Date and Time: August 17, 2022 0908 Height,Weight and Vital Signs: Height 4 ft 11 in Weight 72.121 kg Airway Mallampati Class: I (cap top front) TM Dist: >3cm Neck ROM: Full Heart: rrr Lungs: cta Assessment and Plan Assessment Anesthesia Assessment: Anesthesia Plan Discussed and Chart Reviewed Final Anesthetic Review Family History of Problems with Anesthesia: No History of Problems with Anesthesia: No NPO: Yes ASA Class: II Final Preanesthetic Review: No Changes in Pt Med Stat, Meds/Allgs Chart Reviewed and Consent Obtained/Reviewed Patient Risk: Intermediate Procedure Risk: Intermediate Anesthetic Plan Anesthetic Plan: MAC: Disposition: Standard PACU
[2022-08-17 11:37] LABS: UPreg QC Valid YES; Urine Pregnancy NEGATIVE (NEGATIVE)
[2022-08-17 12:08] VITALS: BP 114/71; PULSE 68; RESP 15; TEMP 36.8; O2SAT 99
[2022-08-17] MEDS: Lactated Ringers 1,000 ML 100 ML IVCONT (12:08)
[2022-08-17] MEDS: Sodium Phosphate,Mono-Dibasic 133 ML ENEMA PR (12:08)
--- NOTE | 2022-08-17 12:41 | MHC.SHP ---
Pre-Procedural Eval Section A Date of Service: 08/17/22 Section B Chief Complaint: screening Relevant Family History (Specify if Yes): No Relevant Social History: None Present Medications: see Short Stay Collaborative assessment Medical History: Significant History (Asthma Hypothyroidism Primary biliary cholangitis) History of Previous Operations: Relevant previous surgery/procedure and date(s) (c section, breast lift) Allergies: Allergies Allergy/AdvReac Type Severity Reaction Status Date / Time shellfish derived Allergy Unknown rash Verified 08/17/22 11:44 ibuprofen [From Motrin] AdvReac Mild Palpitation Verified 08/17/22 11:44 s oxycodone [From Percocet] AdvReac Mild Hypotension Verified 08/17/22 11:44 Review of Systems Sugical H&P ROS: Negative: Constitution, Cardiovascular, Respiratory, Neurological, Psychiatric, Hem-Onc, Allergic/Immunologic, Gastrointestinal, Genitourinary, Musculoskeletal, Integumentary, Endocrine and Eyes/Ears/Nose/Throat Exam Surgical H&P Exam: Normal: HEENT, Normal: Heart, Normal: Lungs, Normal: Extremities, Normal: Abdomen, Normal: Skin and Normal: Neurological Plan Diagnosis/Plan: Unchanged I have reviewed the history and physical and performed a pertinent physical examination on my patient. No changes have occurred unless specified. Time Spent With Patient Time: Total time managing care of this patient today ____ minutes.
--- NOTE | 2022-08-17 13:22 | P.OP_ITS ---
Operative Note Operative Note Date of Service: 08/17/22 Narrative: Operative Information Procedure Description: Colonoscopy Indication: screening Anesthesia: MAC COLONOSCOPY Instrument: Olympus variable stiffness pediatric scope 190L Colonoscopy Monitoring: Vital signs and clinical assessment, continuous EKG monitoring, Pulse oximetry, Carbon Dioxide monitoring and blood pressure monitoring were done throughout the procedure. Colon withdrawal time was 6 minutes. Procedure: The patient was placed in the left lateral decubitis position and pre-procedure medications were administered. After a digital rectal examination of the ano-rectum, the video colonoscope was inserted into the rectum and advanced through the colon to the cecum/TI. The colonoscope was slowly withdrawn in a retrograde panoramic fashion and the colon mucosa was carefully examined including a retroflexed view of the rectum. Findings and interventions are described below. Procedure Difficulty: moderate due to tortuous colon Findings: Terminal Ileum-normal Cecum:normal Ascending Colon: normal Transverse Colon -normal Descending Colon: 8-9 mm sessile polyp removed with cold snare and residual tissue with cold forceps Sigmoid Colon: Moderate severe diverticulosis with luminal narrowing from mucosal hypertrophy Rectum: Retroflexion with small internal hemorrhoids, grade I Anorectum - normal Colon preparation: [place] Bowel Preparation Scale Right colon; 2 Transverse colon: 3 Left colon; 3 (0 = Unprepared colon segment with mucosa not seen due to solid stool that cannot be cleared. 1 = Portion of mucosa of the colon segment seen, but other areas of the colon segment not well seen due to staining, residual stool and/or opaque liquid. 2 = Minor amount of residual staining, small fragments of stool and/or opaque liquid, but mucosa of colon segment seen well. 3 = Entire mucosa of colon segment seen well with no residual staining, small fragments of stool or opaque liquid) Impression and Post Procedure Diagnosis: polyp internal hemorrhoids diverticular disease Plan: High fiber diet leaflet Avoid straining at stool, epsom salts and sitz bath, anusol supps or cream Repeat Colonoscopy in 5-7 years due to adenomatous appearing polyp or earlier if clinically indicated Above findings were reviewed with the patient and relevant handouts were provided if indicated.
[2022-08-17 13:28] VITALS: BP 100/56; PULSE 74; RESP 16; TEMP 36.6; O2SAT 98
[2022-08-17 13:43] VITALS: BP 107/64; PULSE 61; RESP 16; TEMP 36.2; O2SAT 98
== END 2022-08-17 14:07 ==
PROVIDERS: Nurse Practitioner; PCP Internal Medicine; Visit Provider Internal Medicine Gastroenterology
PROC: 0DJD8ZZ Inspection of Lower Intestinal Tract, Via Natural or Artificial Opening Endoscopic (ICD-10-PCS; CPT 45378; principal; 2022-08-17 12:30)
DX: Z12.11 Encounter for screening for malignant neoplasm of colon (principal); D12.4 Benign neoplasm of descending colon; K57.30 Diverticulosis of large intestine without perforation or abscess without bleeding; K64.0 First degree hemorrhoids; K59.04 Chronic idiopathic constipation; K74.3 Primary biliary cirrhosis; J45.909 Unspecified asthma, uncomplicated; E03.9 Hypothyroidism, unspecified; Z79.899 Other long term (current) drug therapy; Z88.8 Allergy status to other drugs, medicaments and biological substances
CPT/HCPCS: 45385; 45380; 81025; 88305

== ENCOUNTER → 2022-09-15 10:55 | Outpatient (BNVA) | payer OTHER, SELFPAY | PROVIDERS: PCP Internal Medicine; Visit Provider Physician Assistant ==

== ENCOUNTER 2022-10-25 12:23 | Outpatient (REF) | payer OTHER, SELFPAY ==
[2022-10-25 15:56] LABS: TSH reflex Free T4 2.11 uIU/mL (0.32-4.0)
== END 2022-10-25 12:24 | disposition home or self-care (01) ==
LOC: HO.HMGCLDS 12:23
PROVIDERS: PCP Internal Medicine; Visit Provider Internal Medicine
DX: Z00.01 Encounter for general adult medical examination with abnormal findings (principal); E03.8 Other specified hypothyroidism
CPT/HCPCS: 36415; 84443

== ENCOUNTER 2023-01-13 13:47 | Outpatient (AMB) | payer OTHER, SELFPAY ==
[2023-01-13 13:54] VITALS: BP 112/74; PULSE 88; O2SAT 98; BMI 32.9
--- NOTE | 2023-01-13 13:54 | MHC.PC.OV ---
Vital Signs 01/13/23 13:54 Height 4 ft 11 in Weight 163 lb BMI 32.9 BP 112/74 Blood Pressure Location Rt brachial Position Sitting Pulse 88 Pulse Source Pulse Oximeter Pulse Oximetry (%) 98 Oxygen Delivery Method Room Air Intake Visit Reasons: Physician Assistant Referral-Obesity Allergies shellfish derived Allergy (Unknown, Verified 01/13/23 13:55) rash ibuprofen [From Motrin] Adverse Reaction (Mild, Verified 01/13/23 13:55) Palpitations oxycodone [From Percocet] Adverse Reaction (Mild, Verified 01/13/23 13:55) Hypotension Medication List - Last Reconciled 01/13/23 by Vladimir Rodriges MD levothyroxine 88 mcg PO DAILY 90 days ursodiol 500 mg PO BID 90 days Tobacco use date assessed: 10/25/22 HPI Physician Assistant Referral-Obesity HPI Details Patient is a 52-year-old female with a BMI of 32.9 Complaining of feeling fatigued lack of stamina unable to do exercise Daytime somnolence and snoring Patient is requesting referral to manufacturing finance manager which I have placed for the patient I think she should also do a sleep study order placed. Further management after the sleep study report [facility] Medical History Primary biliary cholangitis Hypothyroidism Asthma Surgical History History of liver biopsy Hx of colonoscopy History of breast lift Hx of section Family History Unknown No family history of colorectal cancer Social History Household Members Other:: - 1 son at home Housing: House Patient Tobacco Use Status: Never used Tobacco e-Cigarette/Vaping Use: Never Used service: No Current occupational status: unemployed Cognitive needs: No Hearing needs: No Vision needs: Yes Questionnaire PHQ-9 Over the last 2 weeks, how often have you been bothered by any of the following problems? 1. Little interest or pleasure in doing things: not at all 2. Feeling down, depressed, or hopeless: not at all 3. Trouble falling or staying asleep, or sleeping too much: not at all 4. Feeling tired or having little energy: not at all 5. Poor appetite or overeating: not at all 6. Feeling bad about yourself - or that you are a failure or have let yourself or your family down: not at all 7. Trouble concentrating on things, such as reading the newspaper or watching television: not at all 8. Moving or speaking so slowly that other people could have noticed. Or the opposite - being so fidgety or restless that you have been moving around a lot more than usual: not at all 9. Thoughts that you would be better off or of hurting yourself in some way: not at all Total score: 0 Depression Screening Interpretation: Negative 19271 - PHQ-9 Billing: Yes Source: Developed by Drs. Rusty Reyna, Kimberley Reese, Shaw Lobo and colleagues, with an educational rita from [employer]. Thrive Questionnaire Date Thrive assessed: 01/13/23 I am a: Patient What is your living situation today?: I have a steady place to live Within the past 12 months, did the food you bought not last and you didn't have the money to get more?: Never true Within the past 12 months, did you worry whether your food would run out before you got money to buy more?: Never true Do you have trouble paying for medicines?: No Do you have trouble getting transportation to medical appointments?: No Do you have trouble paying your heating and electricity bill?: No Do you have trouble taking care of your child, family member or friend?: No Do you have trouble with day-to-day activities such as bathing, preparing meals, shopping, managing finances, etc.?: No Are you currently unemployed and looking for a job?: Yes Are you interested in more education?: No Please select the resources that you would like help with: None AUDIT C Alcohol Use Questionnaire (AUDIT-C) 1. How often do you have a drink containing alcohol?: Never 3. How often do you have six or more drinks on one occasion?: Never Total Score: 0 BETO-7 AMB Questionnaire BETO-7 Date BETO - 7 assessed: 01/13/23 Feeling nervous, anxious, or on edge: 0 = Not at all Not being able to stop or control worryin = Not at all Worrying too much about different things: 0 = Not at all Trouble relaxin = Not at all Being so restless that it is hard to sit still: 0 = Not at all Becoming easily annoyed or irritable: 0 = Not at all Feeling afraid as if something awful might happen: 0 = Not at all Total BETO-7 score (0-4 normal; 5-9 mild; 10-14 moderate; 15-21 severe): 0 Source: Developed by Drs. Rusty Reyna, Kimberley Reese, Shaw Lobo and colleagues, with an educational rita from [employer]. BETO-7 Assessment Billing BETO-7 Assessment Tool: BETO-7 Assessment 58398 Review of Systems Const Denies chills and Denies fever(s) ENT Denies epistaxis and Denies nasal discharge Card Denies chest pain Resp Denies chest congestion, Denies cough and Denies hemoptysis GI Denies diarrhea and Denies nausea Skin/Breast Denies rash Neuro Reports no additional complaints Psych Reports no additional complaints Endo Reports no additional complaints Physical exam (Primary Care) Vital Signs: Last Vital Signs Pulse 88 01/13/23 13:54 BP 112/74 01/13/23 13:54 Pulse Ox 98 01/13/23 13:54 Oxygen Delivery Method Room Air 01/13/23 13:54 BMI result Body Mass Index 32.9 Tobacco/Smoking Status: Tobacco use Status Tobacco use date assessed 10/25/22 01/13/23 13:55 Patient Tobacco Use Status Never used Tobacco 01/13/23 13:55 e-Cigarette/Vaping Use Never Used 01/13/23 13:55 PHQ-9: PHQ-9 Score PHQ-9: Total score 0 01/13/23 14:19 Depression Screening Interpretation: Negative Thrive Assessment: Date of Thrive Assessment Date Thrive assessed 01/13/23 01/13/23 14:19 Const General: cooperative, comfortable and no acute distress Orientation/consciousness: patient oriented x3 HENMT Head: Yes normocephalic Eyes General: appearance normal, both eyes and all related structures Neck Neck: Yes supple Resp Effort & Inspection: normal respiratory effort, no cough and no stridor Cardio Rhythm: regular rhythm Heart sounds: S1 normal heart sound present and S2 normal heart sound present Skin General skin exam: turgor normal Neuro General: patient oriented x3, tone normal and moves all extremities Extrem Right lower extremity: no edema Left lower extremity: no edema Assessment and Plan Assessment & Plan (1) Daytime somnolence: Code(s): R40.0 - Somnolence (2) Lack of stamina: Code(s): R53.83 - Other fatigue (3) Fatigue: Code(s): R53.83 - Other fatigue Qualifiers: Fatigue type: other Qualified Code(s): R53.83 - Other fatigue (4) Snoring: Code(s): R06.83 - Snoring (5) Obesity due to excess calories: Code(s): E66.09 - Other obesity due to excess calories Qualifiers: Body mass index: BMI 32.0-32.9 Obesity classification: adult class 1 (BMI 30 - 34.9) Serious obesity comorbidity presence: without serious comorbidity Qualified Code(s): E66.09 - Other obesity due to excess calories; Z68.32 - Body mass index [BMI] 32.0-32.9, adult Plan Patient is a 52-year-old female with a BMI of 32.9 Complaining of feeling fatigued lack of stamina unable to do exercise Daytime somnolence and snoring Patient is requesting referral to manufacturing finance manager which I have placed for the patient I think she should also do a sleep study order placed. Further management after the sleep study report Orders: Orders RT home sleep study Today E66.09 - Other obesity due to excess calories, R06.83 - Snoring, R40.0 - Somnolence, R53.83 - Other fatigue Coding Level of Care Code Est Pt Level 4 (63345) Diagnoses Daytime somnolence R40.0 Lack of stamina R53.83 Other fatigue R53.83 Fatigue type: other Snoring R06.83 Class 1 obesity due to excess calories without serious comorbidity with body mass index (BMI) of 32.0 to 32.9 in adult E66.09; Z68.32 Body mass index: BMI 32.0-32.9 Obesity classification: adult class 1 (BMI 30 - 34.9) Serious obesity comorbidity presence: without serious comorbidity Additional Codes BETO-7 Assessment Billing - BETO-7 Assessment Tool: BETO-7 Assessment 40024 ([id number])
== END 2023-01-13 15:53 | disposition home or self-care (01) ==
PROVIDERS: PCP Internal Medicine; Visit Provider Internal Medicine
DX: R40.0 Somnolence (principal); R53.83 Other fatigue; E66.09 Other obesity due to excess calories; Z68.32 Body mass index [BMI] 32.0-32.9, adult; R06.83 Snoring
CPT/HCPCS: 99214

== ENCOUNTER → 2023-02-27 12:30 | Outpatient (REF) | payer OTHER, SELFPAY | LOC: HO.SL 12:30 | PROVIDERS: PCP Internal Medicine; Visit Provider Internal Medicine | DX: R06.83 Snoring (principal); R53.83 Other fatigue; R40.0 Somnolence; E66.09 Other obesity due to excess calories | CPT/HCPCS: 95806 ==

== ENCOUNTER → 2023-02-27 13:03 | Outpatient (BNV) | payer OTHER, SELFPAY | PROVIDERS: PCP Internal Medicine; Visit Provider Internal Medicine | DX: R06.83 Snoring (principal); R40.0 Somnolence | CPT/HCPCS: 95806 ==

== ENCOUNTER 2023-05-22 09:26 | Outpatient (REF) | payer OTHER, SELFPAY ==
[2023-05-22 10:57] LABS: MANUAL DIFF FLAG NO
[2023-05-22 11:07] LABS: Basophils Percent Auto 1.1 % (0-2); Eosinophils Absolute Auto 0.1 X10*3/uL (0.0-0.4); Hematocrit 40.1 % (37.0-47.0); Hemoglobin 13.9 g/dl (12.0-16.0); Imm Gran Abs Auto 0.01 X10*3/uL (0.00-0.03); Imm Gran Pct Auto 0.3 % (0.0-0.4); Lymphocytes Absolute Auto 1.5 X10*3/uL (1.2-4.9); Lymphocytes Percent Auto 41.6 % (20-40); Mean Corpuscular HGB Conc 34.7 g/dl (31.0-35.0); Mean Corpuscular Hemoglobin 28.7 pg (27.0-33.0); Mean Corpuscular Volume 82.7 fL (80.0-98.0); Mean Platelet Volume 10.6 fL (9.4-12.3); Monocytes Absolute Auto 0.4 X10*3/uL (0.1-1.2); Monocytes Percent Auto 9.9 % (2-11); Neutrophils Absolute Auto 1.5 x10*3/uL (2.0-8.3); Neutrophils Percent Auto 43.1 % (45-73); Platelet Count 202 X10*3/uL (160-400); Red Blood Count 4.85 X10*6/uL (4.20-5.50); Red Cell Distribution Width 11.9 % (11.0-16.0); White Blood Count 3.5 X10*3/uL (4.8-10.8)
[2023-05-22 11:34] LABS: Alanine Aminotransferase 31 U/L (0-31); Albumin Level 4.2 g/dL (3.5-5.0); Alkaline Phosphatase 79 U/L (39-117); Anion Gap 13 (12-20); Aspartate Amino Transferase 34 U/L (5-31); Bilirubin Total 0.7 mg/dL (0.0-1.0); Blood Urea Nitrogen 9 mg/dL (9-16); C Reactive Protein 0.17 mg/dL (< or = 0.50); Calcium 10.1 mg/dL (8.4-10.2); Carbon Dioxide 25 mmol/L (22-29); Chloride 106 mmol/L (96-108); Estimated Glomerular Filt Rate > 60; Glucose Random 86 mg/dL (60-115); Potassium 3.6 mmol/L (3.3-5.1); Sodium 140 mmol/L (135-145); Total Protein 7.2 g/dL (6.5-8.0)
== END 2023-05-22 09:27 | disposition home or self-care (01) ==
LOC: HO.HMGCLDS 09:26
PROVIDERS: PCP Internal Medicine; Visit Provider Internal Medicine Gastroenterology
DX: R74.01 Elevation of levels of liver transaminase levels (principal); K75.81 Nonalcoholic steatohepatitis (NASH)
CPT/HCPCS: 36415; 80053; 85025; 86140

== ENCOUNTER 2023-06-23 12:00 | Outpatient (AMB) | payer OTHER, SELFPAY ==
[2023-06-23 12:05] VITALS: BP 118/72; PULSE 71; O2SAT 99; BMI 32.2
--- NOTE | 2023-06-23 12:05 | A.OFFPC_ITS ---
Vital Signs 3 06/23/23 12:05 Height 4 ft 11 in Weight 159 lb 4 oz BMI 32.2 BP 118/72 Blood Pressure Location Lt brachial Position Sitting Pulse 71 Pulse Source Pulse Oximeter Pulse Oximetry (%) 99 Oxygen Delivery Method Room Air Intake Visit Reasons: Check my tyroid Allergies shellfish derived Allergy (Unknown, Verified 06/23/23 12:05) rash ibuprofen [From Motrin] Adverse Reaction (Mild, Verified 06/23/23 12:05) Palpitations oxycodone [From Percocet] Adverse Reaction (Mild, Verified 06/23/23 12:05) Hypotension Medication List - Last Reconciled 06/23/23 by Vladimir Rodriges MD levothyroxine 88 mcg PO DAILY 90 days ursodiol 500 mg PO BID 90 days Tobacco use date assessed: 06/23/23 Dental Screening Dental Screen Date: 06/23/23 Did you have a dental visit in the last 12 months?: Yes Did you have a dental problem in the last 6 months where you did not have access to dental care?: No Was dental information given to patient?: Patient has dentist HPI Check my tyroid 2 HPI0 Details Patient is a 52-year-old female came today for her six-month follow-up appointment on hypothyroidism Patient had labs recently, her LFTs have improved She has lost 4 lb since seen last in January She has changed her eating habits and is drinking more water now. Feeling better Somehow thyroid test was missed, I ordered diet patient have it done today. She has developed mild eczema around left nipple, she is using vitamin E oil which is helping She may also use [id number] hydrocortisone as needed. Has physical exam appointment scheduled for October Medical History Primary biliary cholangitis Hypothyroidism Asthma Surgical History History of liver biopsy Hx of colonoscopy History of breast lift Hx of section Family History Unknown No family history of colorectal cancer Social History Household Members Other:: - 1 son at home Housing: House Patient Tobacco Use Status: Never used Tobacco e-Cigarette/Vaping Use: Never Used service: No Current occupational status: unemployed Cognitive needs: No Hearing needs: No Vision needs: Yes Questionnaire PHQ-9 Over the last 2 weeks, how often have you been bothered by any of the following problems? 1. Little interest or pleasure in doing things: not at all 2. Feeling down, depressed, or hopeless: not at all 3. Trouble falling or staying asleep, or sleeping too much: not at all 4. Feeling tired or having little energy: not at all 5. Poor appetite or overeating: not at all 6. Feeling bad about yourself - or that you are a failure or have let yourself or your family down: not at all 7. Trouble concentrating on things, such as reading the newspaper or watching television: not at all 8. Moving or speaking so slowly that other people could have noticed. Or the opposite - being so fidgety or restless that you have been moving around a lot more than usual: not at all 9. Thoughts that you would be better off or of hurting yourself in some way: not at all Total score: 0 Depression Screening Interpretation: Negative Depression Screening Done: Yes 51749 - PHQ-9 Billing: Yes Source: Developed by Drs. Rusty Reyna, Kimberley Reese, Shaw Lobo and colleagues, with an educational rita from [employer]. Thrive Questionnaire Date Thrive assessed: 06/23/23 I am a: Patient What is your living situation today?: I have a steady place to live Within the past 12 months, did the food you bought not last and you didn't have the money to get more?: Never true Within the past 12 months, did you worry whether your food would run out before you got money to buy more?: Never true Do you have trouble paying for medicines?: No Do you have trouble getting transportation to medical appointments?: No Do you have trouble paying your heating and electricity bill?: No Do you have trouble taking care of your child, family member or friend?: No Do you have trouble with day-to-day activities such as bathing, preparing meals, shopping, managing finances, etc.?: No Are you currently unemployed and looking for a job?: No Are you interested in more education?: No Please select the resources that you would like help with: None Currently or been in a relationship where the following occur: no concerns reported THRIVE Score: 0 AUDIT C Alcohol Use Questionnaire (AUDIT-C) 1. How often do you have a drink containing alcohol?: Never 3. How often do you have six or more drinks on one occasion?: Never Total Score: 0 Score Reviewed/Action Taken: Yes BETO-7 AMB Questionnaire BETO-7 Date BETO - 7 assessed: 06/23/23 Feeling nervous, anxious, or on edge: 0 = Not at all Not being able to stop or control worryin = Not at all Worrying too much about different things: 0 = Not at all Trouble relaxin = Not at all Being so restless that it is hard to sit still: 0 = Not at all Becoming easily annoyed or irritable: 0 = Not at all Feeling afraid as if something awful might happen: 0 = Not at all Total BETO-7 score (0-4 normal; 5-9 mild; 10-14 moderate; 15-21 severe): 0 Source: Developed by Drs. Rusty Reyna, Kimberley Reese, Shaw Lobo and colleagues, with an educational rita from [employer]. BETO-7 Assessment Billing BETO-7 Assessment Tool: BETO-7 Assessment 64636 Review of Systems Const Denies chills and Denies fever(s) ENT Denies epistaxis and Denies nasal discharge Card Denies chest pain Resp Denies chest congestion, Denies cough and Denies hemoptysis GI Denies diarrhea and Denies nausea Skin/Breast Denies rash Neuro Reports no additional complaints Psych Reports no additional complaints Endo Reports no additional complaints Physical exam (Primary Care) Vital Signs: Last Vital Signs Pulse 71 06/23/23 12:05 BP 118/72 06/23/23 12:05 Pulse Ox 99 06/23/23 12:05 Oxygen Delivery Method Room Air 06/23/23 12:05 BMI result Body Mass Index 32.2 Tobacco/Smoking Status: Tobacco use Status Tobacco use date assessed 06/23/23 06/23/23 12:10 Patient Tobacco Use Status Never used Tobacco 06/23/23 12:10 e-Cigarette/Vaping Use Never Used 06/23/23 12:10 PHQ-9: PHQ-9 Score PHQ-9: Total score 0 06/23/23 12:11 Depression Screening Interpretation: Negative Thrive Assessment: Date of Thrive Assessment Date Thrive assessed 06/23/23 06/23/23 12:11 Currently or been in a relationship where the following occur: no concerns reported Const General: cooperative, comfortable and no acute distress Orientation/consciousness: patient oriented x3 HENMT Head: Yes normocephalic Eyes General: appearance normal, both eyes and all related structures Neck Neck: Yes supple Chest Chest/axillae images: 2 1. Rash has resolved Resp Effort & Inspection: normal respiratory effort, no cough and no stridor Cardio Rhythm: regular rhythm Heart sounds: S1 normal heart sound present and S2 normal heart sound present Skin General skin exam: turgor normal Neuro General: patient oriented x3, tone normal and moves all extremities Extrem Right lower extremity: no edema Left lower extremity: no edema Assessment and Plan Assessment & Plan (1) Hypothyroidism: Code(s): E03.9 - Hypothyroidism, unspecified Qualifiers: Hypothyroidism type: unspecified Qualified Code(s): E03.9 - Hypothyroidism, unspecified (2) Obesity due to excess calories: Code(s): E66.09 - Other obesity due to excess calories Qualifiers: Obesity classification: adult class 1 (BMI 30 - 34.9) Serious obesity comorbidity presence: without serious comorbidity Body mass index: BMI 32.0- 32.9 Qualified Code(s): E66.09 - Other obesity due to excess calories; Z68.32 - Body mass index [BMI] 32.0-32.9, adult (3) Eczema: Code(s): L30.9 - Dermatitis, unspecified Qualifiers: Eczema type: intrinsic Qualified Code(s): L20.84 - Intrinsic (allergic) eczema Plan Patient is a 52-year-old female came today for her six-month follow-up appointment on hypothyroidism Patient had labs recently, her LFTs have improved She has lost 4 lb since seen last in January She has changed her eating habits and is drinking more water now. Feeling better Somehow thyroid test was missed, I ordered diet patient have it done today. She has developed mild eczema around left nipple, she is using vitamin E oil which is helping She may also use [id number] hydrocortisone as needed. Has physical exam appointment scheduled for October Orders: Orders 2 TSH reflex Free T4 Today E03.8 - Other specified hypothyroidism Coding Level of Care Code Est Pt Level 3 (25080) Diagnoses Hypothyroidism, unspecified type E03.9 Hypothyroidism type: unspecified Class 1 obesity due to excess calories without serious comorbidity with body mass index (BMI) of 32.0 to 32.9 in adult E66.09; Z68.32 Obesity classification: adult class 1 (BMI 30 - 34.9) Serious obesity comorbidity presence: without serious comorbidity Body mass index: BMI 32.0-32.9 Intrinsic eczema L20.84 Eczema type: intrinsic Additional Codes BETO-7 Assessment Billing - BETO-7 Assessment Tool: BETO-7 Assessment 00007 ([id number])
== END 2023-06-23 14:40 | disposition home or self-care (01) ==
PROVIDERS: PCP Internal Medicine; Visit Provider Internal Medicine
DX: E03.9 Hypothyroidism, unspecified (principal); E66.09 Other obesity due to excess calories; Z68.32 Body mass index [BMI] 32.0-32.9, adult; L20.84 Intrinsic (allergic) eczema
CPT/HCPCS: 99213

== ENCOUNTER 2023-06-23 12:24 | Outpatient (REF) | payer OTHER, SELFPAY ==
[2023-06-23 13:57] LABS: TSH reflex Free T4 0.73 uIU/mL (0.32-4.0)
== END 2023-06-23 12:25 | disposition home or self-care (01) ==
LOC: HO.HMGCLDS 12:24
PROVIDERS: PCP Internal Medicine; Visit Provider Internal Medicine
DX: E03.8 Other specified hypothyroidism (principal)
CPT/HCPCS: 36415; 84443

== ENCOUNTER 2023-08-07 13:27 | Outpatient (AMB) | payer OTHER, SELFPAY ==
[2023-08-07 13:42] VITALS: BP 110/70; PULSE 78; TEMP 36.5; O2SAT 99; BMI 33.1
--- NOTE | 2023-08-07 13:42 | AM.OFFWIN_ITS ---
Intake Vital Signs 08/07/23 13:42 Height 4 ft 11 in Weight 164 lb BMI 33.1 BP 110/70 Blood Pressure Location Lt brachial Position Sitting Pulse 78 Pulse Source Pulse Oximeter Temp 97.7 F Temp Source Temporal Artery Scan Pulse Oximetry (%) 99 Oxygen Delivery Method Room Air Intake Visit Reasons: EP LT side face swelling Intake Note: pt is lft side face swelling started today Patient Tobacco Use Status: Never used Tobacco Allergies shellfish derived Allergy (Unknown, Verified 08/07/23 13:46) rash ibuprofen [From Motrin] Adverse Reaction (Mild, Verified 08/07/23 13:46) Palpitations oxycodone [From Percocet] Adverse Reaction (Mild, Verified 08/07/23 13:46) Hypotension Do you need a note to return to daycare/school/sports/work: No HPI HPI Comments History of Present Illness Details 52 y/o female patient who [facility] with c/o left sided facial swelling. Pt reports noticing the swelling few hours ago. Reports that she was making her a lunch sandwich (bread, [place] and lettuce). She is allergic to Shellfish but denies any known contact to this today. Denies facial numbness or tingling. Denies any trouble with swallowing or chewing. Denies SOB, CP, Wheezing etc. PFSH Medical History Primary biliary cholangitis Hypothyroidism Asthma Surgical History History of liver biopsy Hx of colonoscopy History of breast lift Hx of section Family History Unknown No family history of colorectal cancer Social History Household Members Other:: - 1 son at home Housing: House Patient Tobacco Use Status: Never used Tobacco e-Cigarette/Vaping Use: Never Used service: No Current occupational status: unemployed Cognitive needs: No Hearing needs: No Vision needs: Yes Physical Exam Vital Signs: Last Vital Signs Temp 97.7 F 08/07/23 13:42 Pulse 78 08/07/23 13:42 BP 110/70 08/07/23 13:42 Pulse Ox 99 08/07/23 13:42 Oxygen Delivery Method Room Air 08/07/23 13:42 BMI result Body Mass Index 33.1 Const General: comfortable and no acute distress Nutritional Appearance: overweight Orientation/consciousness: patient oriented x3 HEENT Head: Yes normocephalic Face and sinus: Yes face symmetric and Yes other (Some mild swelling left side lips and face) Mouth: tongue normal and moist mucous membranes Throat: Yes posterior oropharynx normal and Yes uvula midline Eyes Pupils: Equal, round and reactive pupils present Resp Effort & Inspection: normal respiratory effort Auscultation: clear to auscultation bilaterally Neuro General: patient oriented x3, gait normal and moves all extremities Cranial nerves: Yes Facial sensation intact/muscles of mastication intact, Yes Equal, round and reactive pupils present, Yes Bilaterally intact EOM present, Yes Normal facial strength present and Yes Midline tongue present Motor exam (neuro): 5/5 motor strength present throughout Psych Speech and movement: Clear speech present; No Slurred speech present Affect: normal affect Attitude: cooperative Assessment & Plan Assessment & Plan (1) Left facial swelling: Code(s): R22.0 - Localized swelling, mass and lump, head Plan: - No signs or symptoms of stroke now. Advised to call 911 if she develops SOB, CP, Facial and tongue swelling. - ?? Allergic reaction vs Gonzalez's palsy - Low dose Steroid and Anti-histamine Medications: New prednisone 20 mg PO DAILY 3 days 3 tabs 0RF R22.0 - Localized swelling, mass and lump, head hydroxyzine HCl 25 mg PO TID PRN 20 tabs 0RF itching, swelling R22.0 - Localized swelling, mass and lump, head Coding Level of Care Code Est Pt Level 3 (85757) Diagnoses Left facial swelling R22.0 Time Spent (min) 15
== END 2023-08-07 14:45 | disposition home or self-care (01) ==
PROVIDERS: PCP Internal Medicine; Visit Provider Nurse Practitioner Family
DX: R22.0 Localized swelling, mass and lump, head (principal)
CPT/HCPCS: 99213

== ENCOUNTER 2024-01-17 08:02 | Outpatient (AMB) | payer OTHER, SELFPAY ==
[2024-01-17 08:03] VITALS: BP 112/76; PULSE 65; TEMP 36.9; O2SAT 98; BMI 33.9
--- NOTE | 2024-01-17 08:03 | MHC.OFFWIV ---
Intake Vital Signs 01/17/24 08:03 Height 4 ft 11 in Weight 168 lb BMI 33.9 BP 112/76 Blood Pressure Location Rt brachial Position Sitting Pulse 65 Pulse Source Pulse Oximeter Temp 98.4 F Temp Source Oral Pulse Oximetry (%) 98 Oxygen Delivery Method Room Air Intake Visit Reasons: EP ?bug bite on LT arm Intake Note: pt c/o bug bite on LT arm. Red and warm to touch Patient Tobacco Use Status: Never used Tobacco Allergies shellfish derived Allergy (Unknown, Verified 01/17/24 08:03) rash ibuprofen [From Motrin] Adverse Reaction (Mild, Verified 01/17/24 08:03) Palpitations oxycodone [From Percocet] Adverse Reaction (Mild, Verified 01/17/24 08:03) Hypotension Do you need a note to return to daycare/school/sports/work: No HPI HPI Comments History of Present Illness Details Patient is a 53yo F who presents with L arm rash She states last night she noticed itching to her L arm Noticed pain and redness/swelling +itching and warmth this am Thinks she sees 2 bite jacob but did not notice any insects or spiders No pain, 0/10 No itching now No fever or chills Tried hydrocortisone 30 minutes ago No other complaints PFSH Medical History Primary biliary cholangitis Hypothyroidism Asthma Surgical History History of liver biopsy Hx of colonoscopy History of breast lift Hx of section Family History Unknown No family history of colorectal cancer Social History Household Members Other:: - 1 son at home Housing: House Patient Tobacco Use Status: Never used Tobacco e-Cigarette/Vaping Use: Never Used service: No Current occupational status: unemployed Cognitive needs: No Hearing needs: No Vision needs: Yes Review of Systems Const Denies chills and Denies fever(s) Card Denies chest pain and Denies dyspnea Resp Denies cough and Denies dyspnea Musc Denies tingling Skin/Breast Reports erythema (L arm ), Reports rash (L arm ) and Denies skin pain Neuro Denies tingling Physical Exam Vital Signs: Last Vital Signs Temp 98.4 F 01/17/24 08:03 Pulse 65 01/17/24 08:03 BP 112/76 01/17/24 08:03 Pulse Ox 98 01/17/24 08:03 Oxygen Delivery Method Room Air 01/17/24 08:03 BMI result Body Mass Index 33.9 General: Non-toxic, NAD. Speaking full sentences. Skin: LUE has approx 3.5 x 2 inch slightly raised erythematous warm patch. No vesicles or petechiae. No induration or fluctuance. No drainage. Non-tender Eye: EOMI Respiratory: CTA bilaterally. No wheezes, rales or rhonchi Cardiac: RRR. No murmur MSK: Full ROM extremities. No tenderness to palpation L elbow joint, or LUE joint spaces. No antecubital fosa tenderness LUE Neurology: A/O. No aphasia or facial droop. Gait without abnormality Psych: Good mood and affect Assessment & Plan Assessment & Plan (1) Skin erythema: Code(s): L53.9 - Erythematous condition, unspecified Plan: Patient seen and evaluated. No abscess. Area of erythema traced Topical mupirocin ordered. She will apply BID and monitor If worsening erythema or onset fever call back Patient gave verbal understanding and had no additional questions or concerns at time of discharge All questions answered Medications: New mupirocin 2% 1 appl topical BID 22 grams 0RF Coding Level of Care Code Est Pt Level 3 (91312) Diagnoses Skin erythema L53.9
== END 2024-01-17 09:16 | disposition home or self-care (01) ==
PROVIDERS: PCP Internal Medicine; Visit Provider Physician Assistant
DX: L53.9 Erythematous condition, unspecified (principal)
CPT/HCPCS: 99213

== ENCOUNTER 2024-01-26 11:10 | Outpatient (AMB) | payer OTHER, SELFPAY ==
--- NOTE | 2024-01-26 11:22 | AM.OFFWIN_ITS ---
Intake Vital Signs 01/26/24 11:23 Height 4 ft 11 in Weight 166 lb BMI 33.5 BP 130/80 Blood Pressure Location Rt brachial Position Sitting Pulse 78 Pulse Source Pulse Oximeter Temp 99.1 F Temp Source Oral Pulse Oximetry (%) 98 Intake Visit Reasons: EP cough, sob, chest tightness Intake Note: pt is here for cough and shortness of breath and used a nebulizer treatment but still hard the breathing Patient Tobacco Use Status: Never used Tobacco Allergies shellfish derived Allergy (Unknown, Verified 01/26/24 11:28) rash ibuprofen [From Motrin] Adverse Reaction (Mild, Verified 01/26/24 11:28) Palpitations oxycodone [From Percocet] Adverse Reaction (Mild, Verified 01/26/24 11:) Hypotension HPI HPI Comments History of Present Illness Details 53 Y/O Female patient who [facility] with c/o URI symptoms. Reports SOB, chest tightness, cough and fatigue. Reports that symptoms started weds. Denies fevers, chills, nausea or vomiting. PFSH Medical History Primary biliary cholangitis Hypothyroidism Asthma Surgical History History of liver biopsy Hx of colonoscopy History of breast lift Hx of section Family History Unknown No family history of colorectal cancer Social History Household Members Other:: - 1 son at home Housing: House Patient Tobacco Use Status: Never used Tobacco e-Cigarette/Vaping Use: Never Used service: No Current occupational status: unemployed Cognitive needs: No Hearing needs: No Vision needs: Yes Physical Exam Vital Signs: Last Vital Signs Temp 99.1 F 01/26/24 11:23 Pulse 78 01/26/24 11:23 BP 130/80 01/26/24 11:23 Pulse Ox 98 01/26/24 11:23 BMI result Body Mass Index 33.5 HEENT Head: Yes normocephalic Ears: external ears normal and TM abnormal bulging and with fluid behind the TM General nose exam: Normal nasal mucous membranes and turbinates present Face and sinus: Yes sinuses nontender Mouth: moist mucous membranes Throat: Yes postnasal drainage Resp Effort & Inspection: normal respiratory effort and able to speak in complete sentences Auscultation: clear to auscultation bilaterally, no crackles, no rales, no rhonchi and no wheezes Cardio Heart sounds: S1 normal heart sound present and S2 normal heart sound present Assessment & Plan Assessment & Plan (1) Acute respiratory disease: Code(s): J06.9 - Acute upper respiratory infection, unspecified Plan: ordered SARs. OTC cough and cold remedies Rest and hydrate well with warm fluids Acetaminophen for pain relief. Orders: Orders SARS-CoV2/FLU/RSV Today J06.9 - Acute upper respiratory infection, unspecified, R09.89 - Other specified symptoms and signs involving the circulatory and respiratory systems Medications: New benzonatate 100 mg PO TID 90 caps 0RF J06.9 - Acute upper respiratory infection, unspecified Coding Level of Care Code Est Pt Level 3 (11003) Diagnoses Acute respiratory disease J06.9 Time Spent (min) 15
[2024-01-26 11:23] VITALS: BP 130/80; PULSE 78; TEMP 37.3; O2SAT 98; BMI 33.5
== END 2024-01-26 11:51 | disposition home or self-care (01) ==
PROVIDERS: PCP Internal Medicine; Visit Provider Nurse Practitioner Family
DX: J06.9 Acute upper respiratory infection, unspecified (principal)

== ENCOUNTER 2024-01-26 11:10 | Outpatient (REF) | payer OTHER, SELFPAY ==
[2024-01-26 14:08] LABS: Influenza A PCR NEGATIVE (Negative); Influenza B PCR NEGATIVE (Negative); Resp Syncy Virus RNA Qual PCR NEGATIVE (Negative); SARS COV2 PCR INHOUSE NEGATIVE (Negative)
== END 2024-01-26 11:11 | disposition home or self-care (01) ==
LOC: HO.LAB 11:10
PROVIDERS: PCP Internal Medicine; Visit Provider Nurse Practitioner Family
DX: J06.9 Acute upper respiratory infection, unspecified (principal); R09.89 Other specified symptoms and signs involving the circulatory and respiratory systems
CPT/HCPCS: 0241U; 99212

== ENCOUNTER 2024-01-30 11:08 | Outpatient (AMB) | payer OTHER, SELFPAY ==
--- NOTE | 2024-01-30 11:10 | MHC.PC.OV ---
Vital Signs 01/30/24 11:14 Height 4 ft 11 in Weight 168 lb BMI 33.9 BP 118/84 Blood Pressure Location Lt brachial Position Sitting Pulse 66 Pulse Source Pulse Oximeter Pulse Oximetry (%) 98 Oxygen Delivery Method Room Air Intake Visit Reasons: Probably edema on legs and check hepatic enzymes Allergies shellfish derived Allergy (Unknown, Verified 01/30/24 11:14) rash ibuprofen [From Motrin] Adverse Reaction (Mild, Verified 01/30/24 11:14) Palpitations oxycodone [From Percocet] Adverse Reaction (Mild, Verified 01/30/24 11:14) Hypotension Medication List - Last Reconciled 01/30/24 by Vladimir Rodriges MD levothyroxine 88 mcg PO DAILY 90 days ursodiol 500 mg PO BID Tobacco use date assessed: 06/23/23 Dental Screening Dental Screen Date: 06/23/23 HPI Probably edema on legs and check hepatic enzymes HPI Details Patient is a 53-year-old female came in today to talk about couple of different concerns Patient is recovering from common cold, continued to have cough at night She was seen in walk-in clinic 4 days ago Her flu RSV and COVID test was negative I would recommend to take Delsym 1 tsp at night Keep pushing fluids She would like to have liver enzymes checked Patient is also hypothyroid and is due for blood test for that as well Order placed BMI is elevated patient is having difficulty losing weight Concerned about mild swelling left leg off and on No orthopnea no shortness a breath PFSH Medical History Primary biliary cholangitis Hypothyroidism Asthma Surgical History History of liver biopsy Hx of colonoscopy History of breast lift Hx of section Family History Unknown No family history of colorectal cancer Social History Household Members Other:: - 1 son at home Housing: House Patient Tobacco Use Status: Never used Tobacco e-Cigarette/Vaping Use: Never Used service: No Current occupational status: unemployed Cognitive needs: No Hearing needs: No Vision needs: Yes Questionnaire PHQ-9 Over the last 2 weeks, how often have you been bothered by any of the following problems? 1. Little interest or pleasure in doing things: not at all 2. Feeling down, depressed, or hopeless: not at all 3. Trouble falling or staying asleep, or sleeping too much: not at all 4. Feeling tired or having little energy: not at all 5. Poor appetite or overeating: not at all 6. Feeling bad about yourself - or that you are a failure or have let yourself or your family down: not at all 7. Trouble concentrating on things, such as reading the newspaper or watching television: not at all 8. Moving or speaking so slowly that other people could have noticed. Or the opposite - being so fidgety or restless that you have been moving around a lot more than usual: not at all 9. Thoughts that you would be better off or of hurting yourself in some way: not at all Total score: 0 Depression Screening Interpretation: Negative Depression Screening Done: Yes 78930 - PHQ-9 Billing: Yes Source: Developed by Drs. Rusty Reyna, Kimberley Reese, Shaw Lobo and colleagues, with an educational rita from [employer]. Thrive Questionnaire Date Thrive assessed: 06/23/23 I am a: Patient What is your living situation today?: I have a steady place to live Within the past 12 months, did the food you bought not last and you didn't have the money to get more?: Never true Within the past 12 months, did you worry whether your food would run out before you got money to buy more?: Never true Do you have trouble paying for medicines?: No Do you have trouble getting transportation to medical appointments?: No Do you have trouble paying your heating and electricity bill?: No Do you have trouble taking care of your child, family member or friend?: No Do you have trouble with day-to-day activities such as bathing, preparing meals, shopping, managing finances, etc.?: No Are you interested in more education?: No Please select the resources that you would like help with: None Currently or been in a relationship where the following occur: No concerns reported THRIVE Score: 0 AUDIT C Alcohol Use Questionnaire (AUDIT-C) 1. How often do you have a drink containing alcohol?: Never 3. How often do you have six or more drinks on one occasion?: Never Total Score: 0 BETO-7 AMB Questionnaire BETO-7 Date BETO - 7 assessed: 06/23/23 Feeling nervous, anxious, or on edge: 0 = Not at all Not being able to stop or control worryin = Not at all Worrying too much about different things: 0 = Not at all Trouble relaxin = Not at all Being so restless that it is hard to sit still: 0 = Not at all Becoming easily annoyed or irritable: 0 = Not at all Feeling afraid as if something awful might happen: 0 = Not at all Total BETO-7 score (0-4 normal; 5-9 mild; 10-14 moderate; 15-21 severe): 0 Source: Developed by Drs. Rusty Reyna, Kimberley Reese, Shaw Lobo and colleagues, with an educational rita from [employer]. Review of Systems Const Denies chills and Denies fever(s) ENT Denies epistaxis and Denies nasal discharge Card Denies chest pain Resp Denies hemoptysis GI Denies diarrhea and Denies nausea Skin/Breast Denies rash Neuro Reports no additional complaints Psych Reports no additional complaints Endo Reports no additional complaints Physical exam (Primary Care) Vital Signs: Last Vital Signs Pulse 66 01/30/24 11:14 BP 118/84 01/30/24 11:14 Pulse Ox 98 01/30/24 11:14 Oxygen Delivery Method Room Air 01/30/24 11:14 BMI result Body Mass Index 33.9 Tobacco/Smoking Status: Tobacco use Status Tobacco use date assessed 06/23/23 01/30/24 11:11 Patient Tobacco Use Status Never used Tobacco 01/30/24 11:11 e-Cigarette/Vaping Use Never Used 01/30/24 11:11 PHQ-9: PHQ-9 Score PHQ-9: Total score 0 01/30/24 11:30 Depression Screening Interpretation: Negative Thrive Assessment: Date of Thrive Assessment Date Thrive assessed 06/23/23 01/30/24 11:11 Currently or been in a relationship where the following occur: No concerns reported Const General: cooperative, comfortable and no acute distress Orientation/consciousness: patient oriented x3 HENMT Head: Yes normocephalic Eyes General: appearance normal, both eyes and all related structures Neck Neck: Yes supple Resp Effort & Inspection: normal respiratory effort, no cough and no stridor Cardio Rhythm: regular rhythm Heart sounds: S1 normal heart sound present and S2 normal heart sound present GI Other: Abdomen benign Skin General skin exam: turgor normal Neuro General: patient oriented x3, tone normal and moves all extremities Extrem Right lower extremity: no edema Left lower extremity: no edema Assessment and Plan Assessment & Plan (1) LFT elevation: Code(s): R79.89 - Other specified abnormal findings of blood chemistry (2) Obesity due to excess calories: Code(s): E66.09 - Other obesity due to excess calories Qualifiers: Body mass index: BMI 32.0-32.9 Obesity classification: adult class 1 (BMI 30 - 34.9) Serious obesity comorbidity presence: without serious comorbidity Qualified Code(s): E66.09 - Other obesity due to excess calories; Z68.32 - Body mass index [BMI] 32.0-32.9, adult (3) Other specified hypothyroidism: Code(s): E03.8 - Other specified hypothyroidism (4) Common cold: Code(s): J00 - Acute nasopharyngitis [common cold] Plan Patient is a 53-year-old female came in today to talk about couple of different concerns Patient is recovering from common cold, continued to have cough at night She was seen in walk-in clinic 4 days ago Her flu RSV and COVID test was negative I would recommend to take Delsym 1 tsp at night Keep pushing fluids She would like to have liver enzymes checked Patient is also hypothyroid and is due for blood test for that as well Order placed BMI is elevated patient is having difficulty losing weight Concerned about mild swelling left leg off and on No orthopnea no shortness a breath Orders: Orders Complete Blood Count Auto Diff Today E03.8 - Other specified hypothyroidism, E66.09 - Other obesity due to excess calories, J00 - Acute nasopharyngitis [common cold], R79.89 - Other specified abnormal findings of blood chemistry, Z68.32 - Body mass index [BMI] 32.0-32.9, adult Comprehensive Met. Panel Today E03.8 - Other specified hypothyroidism, E66.09 - Other obesity due to excess calories, J00 - Acute nasopharyngitis [common cold], R79.89 - Other specified abnormal findings of blood chemistry, Z68.32 - Body mass index [BMI] 32.0-32.9, adult TSH reflex Free T4 Today E03.8 - Other specified hypothyroidism, E66.09 - Other obesity due to excess calories, J00 - Acute nasopharyngitis [common cold], R79.89 - Other specified abnormal findings of blood chemistry, Z68.32 - Body mass index [BMI] 32.0-32.9, adult LDL Cholesterol Direct Today E03.8 - Other specified hypothyroidism, E66.09 - Other obesity due to excess calories, J00 - Acute nasopharyngitis [common cold], R79.89 - Other specified abnormal findings of blood chemistry, Z68.32 - Body mass index [BMI] 32.0-32.9, adult Coding Level of Care Code Est Pt Level 4 (22745) Diagnoses LFT elevation R79.89 Class 1 obesity due to excess calories without serious comorbidity with body mass index (BMI) of 32.0 to 32.9 in adult E66.09; Z68.32 Body mass index: BMI 32.0-32.9 Obesity classification: adult class 1 (BMI 30 - 34.9) Serious obesity comorbidity presence: without serious comorbidity Other specified hypothyroidism E03.8 Common cold J00
[2024-01-30 11:14] VITALS: BP 118/84; PULSE 66; O2SAT 98; BMI 33.9
== END 2024-01-30 13:34 | disposition home or self-care (01) ==
PROVIDERS: PCP Internal Medicine; Visit Provider Internal Medicine
DX: R79.89 Other specified abnormal findings of blood chemistry (principal); E66.09 Other obesity due to excess calories; Z68.32 Body mass index [BMI] 32.0-32.9, adult; E03.8 Other specified hypothyroidism; J00 Acute nasopharyngitis [common cold]

== ENCOUNTER → 2024-01-30 11:08 | Outpatient (BNVA) | payer OTHER, SELFPAY | PROVIDERS: PCP Internal Medicine; Visit Provider Internal Medicine | DX: R79.89 Other specified abnormal findings of blood chemistry (principal); E66.09 Other obesity due to excess calories; Z68.32 Body mass index [BMI] 32.0-32.9, adult; E03.8 Other specified hypothyroidism; J00 Acute nasopharyngitis [common cold] | CPT/HCPCS: 99212 ==

== ENCOUNTER 2024-01-31 09:06 | Outpatient (REF) | payer OTHER, SELFPAY ==
[2024-01-31 10:10] LABS: MANUAL DIFF FLAG NO
[2024-01-31 10:16] LABS: Basophils Absolute Auto 0.1 X10*3/uL (0.0-0.2); Basophils Percent Auto 1.1 % (0-2); Eosinophils Absolute Auto 0.3 X10*3/uL (0.0-0.4); Eosinophils Percent Auto 6.8 % (0-4); Hematocrit 39.1 % (37.0-47.0); Hemoglobin 13.5 g/dl (12.0-16.0); Imm Gran Abs Auto 0.06 X10*3/uL (0.00-0.03); Imm Gran Pct Auto 1.3 % (0.0-0.4); Lymphocytes Absolute Auto 1.4 X10*3/uL (1.2-4.9); Lymphocytes Percent Auto 31.4 % (20-40); Mean Corpuscular HGB Conc 34.5 g/dl (31.0-35.0); Mean Corpuscular Hemoglobin 28.9 pg (27.0-33.0); Mean Corpuscular Volume 83.7 fL (80.0-98.0); Mean Platelet Volume 10.9 fL (9.4-12.3); Monocytes Absolute Auto 0.5 X10*3/uL (0.1-1.2); Monocytes Percent Auto 10.7 % (2-11); Neutrophils Absolute Auto 2.2 x10*3/uL (2.0-8.3); Neutrophils Percent Auto 48.7 % (45-73); Platelet Count 201 X10*3/uL (160-400); Red Blood Count 4.67 X10*6/uL (4.20-5.50); White Blood Count 4.6 X10*3/uL (4.8-10.8)
[2024-01-31 11:01] LABS: Alanine Aminotransferase 25 U/L (0-31); Albumin Level 4.1 g/dL (3.5-5.0); Alkaline Phosphatase 69 U/L (39-117); Anion Gap 10 (12-20); Aspartate Amino Transferase 24 U/L (5-31); Bilirubin Total 0.6 mg/dL (0.0-1.0); Blood Urea Nitrogen 8 mg/dL (9-16); Calcium 9.5 mg/dL (8.4-10.2); Carbon Dioxide 26 mmol/L (22-29); Chloride 106 mmol/L (96-108); Estimated Glomerular Filt Rate > 60; Glucose Random 96 mg/dL (60-115); Potassium 3.7 mmol/L (3.3-5.1); Sodium 138 mmol/L (135-145); TSH reflex Free T4 2.39 uIU/mL (0.32-4.0); Total Protein 6.7 g/dL (6.5-8.0)
[2024-02-01 17:08] LABS: LDL Cholesterol Direct 140 mg/dL (<100)
== END 2024-01-31 09:07 | disposition home or self-care (01) ==
LOC: HO.HMGCLDS 09:06
PROVIDERS: PCP Internal Medicine; Visit Provider Internal Medicine
DX: R79.89 Other specified abnormal findings of blood chemistry (principal); E66.09 Other obesity due to excess calories; Z68.32 Body mass index [BMI] 32.0-32.9, adult; E03.8 Other specified hypothyroidism; J00 Acute nasopharyngitis [common cold]
CPT/HCPCS: 36415; 80053; 83721; 84443; 85025

== ENCOUNTER 2024-06-12 13:10 | Outpatient (AMB) | payer OTHER, SELFPAY ==
[2024-06-12 13:20] VITALS: BP 120/70; PULSE 72; TEMP 36.8; O2SAT 99; BMI 33.3
--- NOTE | 2024-06-12 13:20 | A.OFFPC_ITS ---
Vital Signs 06/12/24 13:20 Height 4 ft 11 in Weight 165 lb BMI 33.3 BP 120/70 Blood Pressure Location Lt brachial Position Sitting Pulse 72 Pulse Source Pulse Oximeter Temp 98.2 F Temp Source Oral Pulse Oximetry (%) 99 Oxygen Delivery Method Room Air Intake Visit Reasons: Annual PE Allergies shellfish derived Allergy (Unknown, Verified 06/12/24 13:24) rash ibuprofen [From Motrin] Adverse Reaction (Mild, Verified 06/12/24 13:24) Palpitations oxycodone [From Percocet] Adverse Reaction (Mild, Verified 06/12/24 13:24) Hypotension Medication List - Last Reconciled 06/12/24 by Vladimir Rodriges MD levothyroxine 88 mcg PO DAILY 90 days ursodiol 500 mg PO BID Tobacco use date assessed: 06/12/24 Dental Screening Dental Screen Date: 06/12/24 Did you have a dental visit in the last 12 months?: Yes Did you have a dental problem in the last 6 months where you did not have access to dental care?: No Was dental information given to patient?: Patient has dentist HPI Annual PE HPI Details Physical exam appointment - The patient is a 53-year-old female - complaining of Vaginal spotting post s exual , postmenopausal, that need further evaluation Patient does not have an OBGYN, referral created and pelvic ultrasound ordered as well . Patient is established with high pressure kettle operator for ongoing gastric issues - Awareness of elevated cholesterol , we will be repeating lipid panel - Occasional night-time palpitations, holcomb spected to be anxiety-related. Heart rate is regular today - Left ear hearing issue has been evalua [place] hearing aid was recommended but patient declined, patient is able to hear fine with the right ear. - obesity with BMI of 33.3 need to lose weight - hypothyroidism: Continue levothyroxine 88 mcg due for TSH level Health Maintenance - Mammogram scheduled and Pap smear due, with a gynecology referral provided. - Blood tests ordered include liver func tion tests, kidney function tests, hemoglobin, TSH, and vitamin D levels. - Encouragement to take a multivitamin a ppropriate for women above 50 to include Vitamin D. Patient Instructions - Fasting blood work: no eating for 10 h ours before the test. - Attend scheduled appointments for Pap smear and gynecology evaluation. - Expect a call for the pelvic ultrasoun d scheduling. - Start taking a multivitamin tailored f or women over 50, which includes Vitamin D. - Monitor cholesterol and consider lifes tyle modifications. - Return for follow-up in six months for thyroid and a year for a physical exam. Review of Systems - Constitutional: Reports feeling good g enerally. - Ears: Reports reduced hearing in the l eft ear due to nerve issues. - Neurological: No headaches no dizzin ess - Ear nose throat: No sore throat no hearing difficulty no ear pain - Cardiovascular: No syncope, no chest pain, no palpitations - Gastrointestinal: No nausea vomiting or diarrhea - Endocrine: No polyuria polydipsia no heat intolerance - Genitourinary: No dysuria - Skin: No new complaints Physical Exam General: Cooperative, healthy appearing, comfortable, no acute distress Orientation: Patient oriented x3 Limitations: None Head: Normal to inspection Ears: Left ear has hearing difficulty has some wax, but not blocked Nose: Normal external nose present Face and sinus: Normal facial exam Eyes: Appearance normal, extraocular movement intact pupils reactive Neck: Normal visual inspection and supple Respiratory: Normal respiratory effort and able to speak in complete sentences. Clear to auscultation, no stridor Breast exam, scarring from previous breast surgery both sides, no lumps were felt Cardiovascular: S1 and S2, no abnormal sounds detected GI: Normal to inspection. Soft to palpation and nontender Skin: Turgor normal, no acute findings Neuro: Patient oriented x3, motor sensory intact, balance intact, tandem pass Extremities: Normal to inspection [facility] Medical History Primary biliary cholangitis Hypothyroidism Asthma Surgical History History of liver biopsy Hx of colonoscopy History of breast lift Hx of section Family History Unknown No family history of colorectal cancer Social History Household Members Other:: - 1 son at home Housing: House Patient Tobacco Use Status: Never used Tobacco e-Cigarette/Vaping Use: Never Used service: No Current occupational status: unemployed Cognitive needs: No Hearing needs: No Vision needs: Yes Questionnaire PHQ-9 Over the last 2 weeks, how often have you been bothered by any of the following problems? 1. Little interest or pleasure in doing things: not at all 2. Feeling down, depressed, or hopeless: not at all 3. Trouble falling or staying asleep, or sleeping too much: not at all 4. Feeling tired or having little energy: not at all 5. Poor appetite or overeating: not at all 6. Feeling bad about yourself - or that you are a failure or have let yourself or your family down: not at all 7. Trouble concentrating on things, such as reading the newspaper or watching television: not at all 8. Moving or speaking so slowly that other people could have noticed. Or the opposite - being so fidgety or restless that you have been moving around a lot more than usual: not at all 9. Thoughts that you would be better off or of hurting yourself in some way: not at all Total score: 0 Depression Screening Interpretation: Negative Depression Screening Done: Yes 84662 - PHQ-9 Billing: Yes Source: Developed by Drs. Rusty Reyna, Kimberley Reese, Shaw Lobo and colleagues, with an educational rita from [employer]. Thrive Questionnaire Date Thrive assessed: 06/12/24 I am a: Patient What is your living situation today?: I have a steady place to live Within the past 12 months, did the food you bought not last and you didn't have the money to get more?: Never true Within the past 12 months, did you worry whether your food would run out before you got money to buy more?: Never true Do you have trouble paying for medicines?: No Do you have trouble getting transportation to medical appointments?: No Do you have trouble paying your heating and electricity bill?: No Do you have trouble taking care of your child, family member or friend?: No Do you have trouble with day-to-day activities such as bathing, preparing meals, shopping, managing finances, etc.?: No Are you currently unemployed and looking for a job?: No Are you interested in more education?: No Please select the resources that you would like help with: None Currently or been in a relationship where the following occur: No concerns reported THRIVE Score: 0 AUDIT C Alcohol Use Questionnaire (AUDIT-C) 1. How often do you have a drink containing alcohol?: Never 3. How often do you have six or more drinks on one occasion?: Never Total Score: 0 Score Reviewed/Action Taken: Yes BETO-7 AMB Questionnaire BETO-7 Date BETO - 7 assessed: 06/12/24 Feeling nervous, anxious, or on edge: 0 = Not at all Not being able to stop or control worryin = Not at all Worrying too much about different things: 0 = Not at all Trouble relaxin = Not at all Being so restless that it is hard to sit still: 0 = Not at all Becoming easily annoyed or irritable: 0 = Not at all Feeling afraid as if something awful might happen: 0 = Not at all Total BETO-7 score (0-4 normal; 5-9 mild; 10-14 moderate; 15-21 severe): 0 Source: Developed by Drs. Rusty Reyna, Kimberley Reese, Shaw Lobo and colleagues, with an educational rita from [employer]. BETO-7 Assessment Billing BETO-7 Assessment Tool: BETO-7 Assessment 27077 Physical exam (Primary Care) Vital Signs: Last Vital Signs Temp 98.2 F 06/12/24 13:20 Pulse 72 06/12/24 13:20 BP 120/70 06/12/24 13:20 Pulse Ox 99 06/12/24 13:20 Oxygen Delivery Method Room Air 06/12/24 13:20 BMI result Body Mass Index 33.3 Tobacco/Smoking Status: Tobacco use Status Tobacco use date assessed 06/12/24 06/12/24 13:24 Patient Tobacco Use Status Never used Tobacco 06/12/24 13:24 e-Cigarette/Vaping Use Never Used 06/12/24 13:24 PHQ-9: PHQ-9 Score PHQ-9: Total score 0 06/12/24 13:24 Depression Screening Interpretation: Negative Thrive Assessment: Date of Thrive Assessment Date Thrive assessed 06/12/24 06/12/24 13:24 Currently or been in a relationship where the following occur: No concerns reported Coding Level of Care Code Est Pt Level 3 (04743) Est Pt Prev Care 40-64y(13017) Diagnoses Encounter for general adult medical examination with abnormal findings Z00.01 Post-menopausal bleeding N95.0 Other specified hypothyroidism E03.8 Class 1 obesity due to excess calories without serious comorbidity with body mass index (BMI) of 32.0 to 32.9 in adult E66.09; Z68.32 Body mass index: BMI 32.0-32.9 Obesity classification: adult class 1 (BMI 30 - 34.9) Serious obesity comorbidity presence: without serious comorbidity LFT elevation R79.89 Hearing difficulty of left ear H91.92 Additional Codes BETO-7 Assessment Billing - BETO-7 Assessment Tool: BETO-7 Assessment 92094 ([id number]) PHQ-9 - 56093 - PHQ-9 Billing: Yes ([id number]) Assessment & Plan Assessment & Plan (1) Encounter for general adult medical examination with abnormal findings: Code(s): Z00.01 - Encounter for general adult medical examination with abnormal findings Category: Medical (2) Post-menopausal bleeding: Code(s): N95.0 - Postmenopausal bleeding Category: Medical (3) Other specified hypothyroidism: Code(s): E03.8 - Other specified hypothyroidism Category: Medical (4) Obesity due to excess calories: Code(s): E66.09 - Other obesity due to excess calories Category: Medical Qualifiers: Body mass index: BMI 32.0-32.9 Obesity classification: adult class 1 (BMI 30 - 34.9) Serious obesity comorbidity presence: without serious comorbidity Qualified Code(s): E66.09 - Other obesity due to excess calories; Z68.32 - Body mass index [BMI] 32.0-32.9, adult (5) LFT elevation: Code(s): R79.89 - Other specified abnormal findings of blood chemistry Category: Medical (6) Hearing difficulty of left ear: Code(s): H91.92 - Unspecified hearing loss, left ear Category: Medical Plan Physical exam appointment - The patient is a 53-year-old female - complaining of Vaginal spotting post sexual , postmenopausal, that need further evaluation Patient does not have an OBGYN, referral created and pelvic ultrasound ordered as well . Patient is established with high pressure kettle operator for ongoing gastric issues - Awareness of elevated cholesterol , we will be repeating lipid panel - Occasional night-time palpitations, suspected to be anxiety-related. Heart rate is regular today - Left ear hearing issue has been evaluated hearing aid was recommended but patient declined, patient is able to hear fine with the right ear. - obesity with BMI of 33.3 need to lose weight - hypothyroidism: Continue levothyroxine 88 mcg due for TSH level Health Maintenance - Mammogram scheduled and Pap smear due, with a gynecology referral provided. - Blood tests ordered include liver function tests, kidney function tests, hemoglobin, TSH, and vitamin D levels. - Encouragement to take a multivitamin appropriate for women above 50 to include Vitamin D. Patient Instructions - Fasting blood work: no eating for 10 hours before the test. - Attend scheduled appointments for Pap smear and gynecology evaluation. - Expect a call for the pelvic ultrasound scheduling. - Start taking a multivitamin tailored for women over 50, which includes Vitamin D. - Monitor cholesterol and consider lifestyle modifications. - Return for follow-up in six months for thyroid and a year for a physical exam. Orders: Orders Complete Blood Count Auto Diff Today E03.8 - Other specified hypothyroidism, E66.09 - Other obesity due to excess calories, R79.89 - Other specified abnormal findings of blood chemistry, Z00.01 - Encounter for general adult medical examination with abnormal findings, Z68.32 - Body mass index [BMI] 32.0-32.9, adult Comprehensive [place]itt. Panel Fast Today E03.8 - Other specified hypothyroidism, E66.09 - Other obesity due to excess calories, R79.89 - Other specified abnormal findings of blood chemistry, Z00.01 - Encounter for general adult medical examination with abnormal findings, Z68.32 - Body mass index [BMI] 32.0-32.9, adult Vitamin D 25-OH (D2 and D3) Today E03.8 - Other specified hypothyroidism, E66.09 - Other obesity due to excess calories, R79.89 - Other specified abnormal findings of blood chemistry, Z00.01 - Encounter for general adult medical examination with abnormal findings, Z68.32 - Body mass index [BMI] 32.0-32.9, adult TSH reflex Free T4 Today E03.8 - Other specified hypothyroidism, E66.09 - Other obesity due to excess calories, R79.89 - Other specified abnormal findings of blood chemistry, Z00.01 - Encounter for general adult medical examination with abnormal findings, Z68.32 - Body mass index [BMI] 32.0-32.9, adult US pelvic and transvaginal Today N95.0 - Postmenopausal bleeding MM tomosynthesis screening BI Today Z12.31 - Encounter for screening mammogram for malignant neoplasm of breast Lipid Panel Today E03.8 - Other specified hypothyroidism, E66.09 - Other obesity due to excess calories, R79.89 - Other specified abnormal findings of blood chemistry, Z00.01 - Encounter for general adult medical examination with abnormal findings, Z68.32 - Body mass index [BMI] 32.0-32.9, adult Referrals ADOPTION SPECIALIST Referral Z01.419 - Encounter for gynecological examination (general) (routine) without abnormal findings
--- OUTSIDE RECORDS SUMMARY | 2024-06-12 14:32 | XMS_ITS | Clinical Summary ---
Author Organization [facility] Address [address] [place] [address] Phone Care Team Providers Care J2Ee Android Developer Name Role Phone Vladimir Rodriges MD Primary Care Provider [phone] Allergies Active Allergy Reactions Criticality Noted Date Comments Oxycodone-Acetaminophen Nausea And Vomiting Shellfish Derived Itching 05/05/2024 Medications Medication Sig Dispensed Refills Start Date End Date Status omeprazole (PriLOSEC) [address] capsule Take 1 capsule (20 mg total) by mouth 1 (one) time each day. Do not crush or chew. 30 each 05/05/2024 06/04/2024 Active Problems No known active problems Encounters Date Type Department Care Team Description 05/05/2024 7:51 AM EST - 05/05/2024 12:[address] [facility] Emergency [address] [place] [address] Topher Mcmanus MD Nausea and vomiting, unspecified vomiting type (Primary Dx) Discharge Disposition: Home or Self Care from Last 3 Months Social History Tobacco Use Types Packs/Day Years Used Date Smoking Tobacco: Never Assessed Sex and Gender Information Value Date Recorded Sex Assigned at Not on file Gender Identity Not on file Sexual Orientation Not on file Job Start Date Occupation Industry Not on file Not on file Not on file Obstetrics History Last Filed Vital Signs Vital Sign Reading Time Taken Comments Blood Pressure 103/63 05/05/2024 10:36 AM EST Pulse 78 05/05/2024 10:36 AM EST Temperature 36.9 ??C (98.4 ??F) 05/05/2024 10:[address] Respiratory Rate 16 05/05/2024 7:39 AM EST Oxygen Saturation 99% 05/05/2024 10:36 AM EST Inhaled Oxygen Concentration - - Weight 71.2 kg (157 lb) 05/05/2024 7:39 AM EST Height 149.9 cm (4' 11 ) 05/05/2024 7:39 AM EST Body Mass Index 31.71 05/05/2024 7:39 AM EST Plan of Treatment Health Maintenance Due Date Last Done Comments Cervical Cancer Screening: P ap Smear 1993 Breast Cancer Screening 11/23/2020 11/23/2018 Colorectal Cancer Screening: Colonoscopy 04/09/2022 Depression Screening 04/09/2022 Social Influencers of Health Screening 04/09/2022 Zoster Vaccines (1 of 2) 2022 COVID-19 Vaccine (2023-2 5 season) 2024 Influenza Vaccine (#1) 2024 Cholesterol Screening (Lipid Panel) 09/09/2025 09/09/2020, 09/09/2020, 10/31/2018 DTaP,Tdap,and Td Vaccines (2 - Td or Tdap) 10/31/2028 10/31/2018 Hepatitis B Vaccines Completed 05/03/2019, 11/30/2018, 10/31/2018 HIV Screening Completed 11/05/2019 Hepatitis C Screening Completed 03/29/2022 HIB Vaccines Aged Out No longer eligi ble based on patient's age to complete this topic HPV Vaccines Aged Out No longer eligi ble based on patient's age to complete this topic Hepatitis A Vaccines Aged Out No long er eligible based on patient's age to complete this topic IPV Vaccines Aged Out No longer eligi ble based on patient's age to complete this topic MMR Vaccines Aged Out No longer eligi ble based on patient's age to complete this topic Meningococcal ACWY Vaccine Aged Out N o longer eligible based on patient's age to complete this topic Pneumococcal Vaccine: Pediatrics (0 to 5 Years) and At-Risk Patients (6 to 64 Years) Aged Out No longer eligible b ased on patient's age to complete this topic RSV Immunization Patients Under 20 months Aged Out No longer eligible b ased on patient's age to complete this topic Varicella Vaccines Aged Out No longer eligible based on patient's age to complete this topic Procedures Procedure Name Priority Date/Time Associated Diagnosis Comments BARGER URINE CULTURE TUBE STAT 05/05/2024 9:46 AM EST URINALYSIS WITH REFLEX MICROSCOPIC AND CULTURE STAT 05/05/2024 9:46 AM EST URINALYSIS WITH REFLEX MICROSCOPIC AND CULTURE STAT 05/05/2024 9:46 AM EST RESPIRATORY VIRUS PANEL MOLECULAR STUDY STAT 05/05/2024 9:26 AM EST CBC WITH AUTO DIFFERENTIAL STAT 05/05/2024 8:07 AM EST LIPASE STAT 05/05/2024 8:07 AM EST MAGNESIUM STAT 05/05/2024 8:07 AM EST COMPREHENSIVE METABOLIC PANEL STAT 05/05/2024 8:07 AM EST CBC AND DIFFERENTIAL STAT 05/05/2024 8:07 AM EST GILMA SCREENING DIGITAL Routine 11/23/2018 5:52 PM EDT Encounter for screening mammogram for malignant neoplasm of breast from Last 3 Months or Most Recently Relevant to Health Maintenance Results * (ABNORMAL) Urinalysis with reflex microscopic and culture (05/05/2024 9:46 AM EST) Specific [place] Urine 1.018 1.003 - 1.030 LAB URINALYSIS - AUTOMATED METHOD 05/05/2024 10:[address] [facility] pH, Urine 6.5 5.0 - 8.0 pH LAB URINALYSIS - AUTOMATED METHOD 05/05/2024 10:[address] [facility] Leukocytes, Urine Negative Negative LAB URINALYSIS - AUTOMATED METHOD 05/05/2024 10:[address] [facility] Nitrite, Urine Negative Negative LAB URINALYSIS - AUTOMATED METHOD 05/05/2024 10:[address] [facility] Protein, Urine Negative <=Trace mg/dL LAB URINALYSIS - AUTOMATED METHOD 05/05/2024 10:[address] [facility] Glucose, Urine Negative Negative mg/dL LAB URINALYSIS - AUTOMATED METHOD 05/05/2024 10:[address] [facility] Ketones, Urine Negative Negative mg/dL LAB URINALYSIS - AUTOMATED METHOD 05/05/2024 10:[address] [facility] Urobilinogen, Urine 0.2 0.2 - 1.0 mg/dL LAB URINALYSIS - AUTOMATED METHOD 05/05/2024 10:[address] [facility] Bilirubin, Urine Negative Negative LAB URINALYSIS - AUTOMATED METHOD 05/05/2024 10:[address] [facility] Blood, Urine Trace(A) Negative LAB URINALYSIS - AUTOMATED METHOD 05/05/2024 10:[address] [facility] RBC, Urine 5.9(H) 0 - 4 /HPF LAB URINALYSIS - AUTOMATED METHOD 05/05/2024 10:[address] [facility] WBC, Urine 1.5 0 - 4 /HPF LAB URINALYSIS - AUTOMATED METHOD 05/05/2024 10:[address] [facility] Squamous Epithelial, Urine 35 0 - 60 /LPF LAB URINALYSIS - AUTOMATED METHOD 05/05/2024 10:[address] [facility] Bacteria, Urine Negative Negative /HPF LAB URINALYSIS - AUTOMATED METHOD 05/05/2024 10:[address] [facility] Hyaline Casts, Urine 0.8 0 - 3 /LPF LAB URINALYSIS - AUTOMATED METHOD 05/05/2024 10:[address] [facility] Urine Urine specimen obtained by clean catch procedure / Unknown Non-blood Collection / Unknown 05/05/2024 9:46 AM EST 05/05/2024 10:15 AM EST [facility]IN LAB URINE ORDERABLES [facility] [address] [place] [address], [place] [phone] * Barger urine culture tube (05/05/2024 9:46 AM EST) [facility] Extra Tube Hold for add-ons. 05/05/2024 12:01 PM EST [facility] Comment:Auto resulted. Urine Urine specimen obtained by clean catch procedure / Unknown Non-blood Collection / Unknown 05/05/2024 9:46 AM EST 05/05/2024 10:15 AM EST [facility] LAB URINE ORDERABLES Performing Organization Address [facility]/ZIP Co de Phone Number [facility] [address] [place] [address], [place] [phone] * Respiratory virus panel molecular study (05/05/2024 9:26 AM EST) [facility] Adenovirus Detection by PCR Not Detected Not Detected LAB MICROBIOLOGY METHOD 05/05/2024 11:[address] [facility] Influenza A PCR Not Detected Not Detected LAB MICROBIOLOGY METHOD 05/05/2024 11:[address] [facility] Influenza B PCR Not Detected Not Detected LAB MICROBIOLOGY METHOD 05/05/2024 11:[address] [facility] Coronavirus 229E Not Detected Not Detected LAB MICROBIOLOGY METHOD 05/05/2024 11:[address] [facility] Coronavirus HKU1 Not Detected Not Detected LAB MICROBIOLOGY METHOD 05/05/2024 11:[address] [facility] Coronavirus OC43 Not Detected Not Detected LAB MICROBIOLOGY METHOD 05/05/2024 11:[address] [facility] Coronavirus NL63 Not Detected Not Detected LAB MICROBIOLOGY METHOD 05/05/2024 11:[address] [facility] Parainfluenza Virus 1 Not Detected Not Detected LAB MICROBIOLOGY METHOD 05/05/2024 11:[address] [facility] Parainfluenza Virus 2 Not Detected Not Detected LAB MICROBIOLOGY METHOD 05/05/2024 11:[address] [facility] Parainfluenza Virus 3 Not Detected Not Detected LAB MICROBIOLOGY METHOD 05/05/2024 11:[address] [facility] Parainfluenza Virus 4 Not Detected Not Detected LAB MICROBIOLOGY METHOD 05/05/2024 11:[address] [facility] RSV PCR Not Detected Not Detected LAB MICROBIOLOGY METHOD 05/05/2024 11:[address] [facility] Human Metapneumovirus A and B Not Detected Not Detected LAB MICROBIOLOGY METHOD 05/05/2024 11:[address] [facility] Rhinovirus/Entero virus Not Detected Not Detected LAB MICROBIOLOGY METHOD 05/05/2024 11:[address] [facility] Bordetella pertussis Not Detected Not Detected LAB MICROBIOLOGY METHOD 05/05/2024 11:[address] [facility] Bordetella parapertussis Not Detected Not Detected LAB MICROBIOLOGY METHOD 05/05/2024 11:[address] [facility] Mycoplasma pneumo by PCR Not Detected Not Detected LAB MICROBIOLOGY METHOD 05/05/2024 11:[address] [facility] Chlamydia pneumoniae Not Detected Not Detected LAB MICROBIOLOGY METHOD 05/05/2024 11:[address] [facility] SARS COV-2 Not Detected Not Detected LAB MICROBIOLOGY METHOD 05/05/2024 11:[address] [facility] Swab Both anterior nares / Unknown Non-blood Collection / Unknown 05/05/2024 9:26 AM EST 05/05/2024 10:16 AM [facility] - 05/05/2024 11:38 AM EST Testing was performed using the [employer] Respiratory Pathogen PCR Assay. All results must be correlated with the clinical findings. Results should not be used as the sole basis for diagnosis. False Negative results may occur from the presence of sequence variants in the region targeted by the assay or the presence of inhibitors. Results may be affected by concurrent antiviral/antimicrobial therapy or levels of organisms that are below the limit of detection. Mykel BABIN LAB MICROBIOLOGY - GENERAL ORDERABLES [facility] [address] [place] [address], * (ABNORMAL) CBC auto differential (05/05/2024 8:07 AM EST) [facility] WBC 6.6 4.8 - 10.8 K/mcL LAB HEMETOLOGY METHOD 05/05/2024 8:[address] [facility] RBC 5.00(H) 3.80 - 4.80 M/mcL LAB HEMETOLOGY METHOD 05/05/2024 8:[address] [facility] Hemoglobin 14.3 11.5 - 16.0 g/dL LAB HEMETOLOGY METHOD 05/05/2024 8:[address] [facility] Hematocrit 42.1 35.0 - 47.0 % LAB HEMETOLOGY METHOD 05/05/2024 8:[address] [facility] MCV 84.2 79.0 - 98.0 FL LAB HEMETOLOGY METHOD 05/05/2024 8:[address] [facility] MCH 28.6 27.0 - 32.0 pcg LAB HEMETOLOGY METHOD 05/05/2024 8:[address] [facility] MCHC 34.0 32.0 - 37.0 g/dL LAB HEMETOLOGY METHOD 05/05/2024 8:[address] [facility] RDW 11.9 11.0 - 15.0 % LAB HEMETOLOGY METHOD 05/05/2024 8:[address] [facility] Platelets 192 130 - 400 K/mcL LAB HEMETOLOGY METHOD 05/05/2024 8:[address] [facility] MPV 10.9 7.0 - 11.0 FL LAB HEMETOLOGY METHOD 05/05/2024 8:[address] [facility] NRBC 0.0 <1.0 % LAB HEMETOLOGY METHOD 05/05/2024 8:[address] [facility] NRBC Absolute 0.00 <0.10 K/mcL LAB HEMETOLOGY METHOD 05/05/2024 8:[address] [facility] Neutrophils Relative 85.8 % LAB HEMETOLOGY METHOD 05/05/2024 8:[address] [facility] Lymphocytes Relative 6.7 % LAB HEMETOLOGY METHOD 05/05/2024 8:[address] [facility] Monocytes Relative 4.7 % LAB HEMETOLOGY METHOD 05/05/2024 8:[address] [facility] Eosinophils Relative 1.7 % LAB HEMETOLOGY METHOD 05/05/2024 8:[address] [facility] Basophils Relative 0.3 % LAB HEMETOLOGY METHOD 05/05/2024 8:[address] [facility] Immature Granulocytes Relative 0.8 % LAB HEMETOLOGY METHOD 05/05/2024 8:[address] [facility] Neutrophils Absolute 5.63 1.50 - 7.00 K/mcL LAB HEMETOLOGY METHOD 05/05/2024 8:[address] [facility] Lymphocytes Absolute 0.44(L) 1.00 - 5.00 K/mcL LAB HEMETOLOGY METHOD 05/05/2024 8:[address] [facility] Monocytes Absolute 0.31 0.20 - 1.00 K/mcL LAB HEMETOLOGY METHOD 05/05/2024 8:[address] [facility] Eosinophils Absolute 0.11 0.00 - 0.50 K/mcL LAB HEMETOLOGY METHOD 05/05/2024 8:48 AM EST [facility] Basophils Absolute 0.02 0.00 - 0.20 K/[facility] LAB HEMETOLOGY METHOD 05/05/2024 8:48 AM EST [facility] Immature Granulocytes Absolute 0.05(H) 0.00 - 0.03 K/[facility] LAB HEMETOLOGY METHOD 05/05/2024 8:48 AM EST [facility] Blood Venous blood specimen / Unknown Venipuncture / Unknown 05/05/2024 8:07 AM EST 05/05/2024 8:42 AM EST [facility] LAB BLOOD ORDERABLES [facility] [address] [place] [address], [place] [phone] * (ABNORMAL) Magnesium (05/05/2024 8:07 AM EST) Magnesium 1.7(L) 1.9 - 2.6 mg/dL LAB CHEMISTRY METHOD 05/05/2024 9:14 AM EST [facility] Comment:Hemolysis present Blood Venous blood specimen / Unknown Venipuncture / Unknown 05/05/2024 8:07 AM EST 05/05/2024 8:42 AM EST [facility] LAB BLOOD ORDERABLES [facility] [address] [place] [address], [place] [phone] * Lipase (05/05/2024 8:07 AM EST) Lipase 41 13 - 75 unit/L LAB CHEMISTRY METHOD 05/05/2024 9:14 AM EST [facility] Blood Venous blood specimen / Unknown Venipuncture / Unknown 05/05/2024 8:07 AM EST 05/05/2024 8:42 AM EST [facility] LAB BLOOD ORDERABLES [facility] [address] [place] [address], * (ABNORMAL) Comprehensive metabolic panel (05/05/2024 8:07 AM EST) Sodium 139 133 - 145 mmol/L LAB CHEMISTRY METHOD 05/05/2024 9:14 AM EST [facility] Potassium 4.1 3.5 - 5.5 mmol/L LAB CHEMISTRY METHOD 05/05/2024 9:[address] [facility] Comment:Hemolysis present Chloride 106 96 - 110 mmol/L LAB CHEMISTRY METHOD 05/05/2024 9:[address] [facility] CO2 26 21 - 32 mmol/L LAB CHEMISTRY METHOD 05/05/2024 9:[address] [facility] Anion Gap 7 3 - 11 LAB CHEMISTRY METHOD 05/05/2024 9:[address] [facility] Glucose 121(H) 70 - 100 mg/dL LAB CHEMISTRY METHOD 05/05/2024 9:[address] [facility] BUN 13 5 - 25 mg/dL LAB CHEMISTRY METHOD 05/05/2024 9:[address] [facility] Creatinine 0.69 0.50 - 1.10 mg/dL LAB CHEMISTRY METHOD 05/05/2024 9:[address] [facility] eGFR 105 >=60 mL/min/1. 73m2 LAB CHEMISTRY METHOD 05/05/2024 9:[address] [facility] Comment:Calculation based on the??Chronic Kidney Disease Epidemiology Collaboration (CKD-EPI) equation refit??without adjustment for race. BUN/Creatinine Ratio 18.8 LAB CHEMISTRY METHOD 05/05/2024 9:[address] [facility] Calcium 9.4 8.5 - 10.5 mg/dL LAB CHEMISTRY METHOD 05/05/2024 9:[address] [facility] AST (SGOT) 52(H) 10 - 42 unit/L LAB CHEMISTRY METHOD 05/05/2024 9:[address] [facility] Comment:Hemolysis present ALT (SGPT) 48 10 - 60 unit/L LAB CHEMISTRY METHOD 05/05/2024 9:[address] [facility] Alkaline Phosphatase 100 42 - 121 unit/L LAB CHEMISTRY METHOD 05/05/2024 9:[address] [facility] Total Protein 7.2 6.0 - 8.0 g/dL LAB CHEMISTRY METHOD 05/05/2024 9:[address] [facility] Albumin 4.1 3.2 - 5.0 g/dL LAB CHEMISTRY METHOD 05/05/2024 9:[address] [facility] Total Bilirubin 1.0 0.0 - 1.4 mg/dL LAB CHEMISTRY METHOD 05/05/2024 9:[address] [facility] Blood Venous blood specimen / Unknown Venipuncture / Unknown 05/05/2024 8:07 AM EST 05/05/2024 8:42 AM EST [facility] LAB BLOOD ORDERABLES Performing Organization Address [facility]/State/ZIP Co de Phone Number [facility] [address] [place] [address], * GILMA SCREENING DIGITAL (11/23/2018 5:52 PM EDT) Anatomical Region Laterality Modality Mammography 11/23/2018 2:28 PM EDT Narrative 11/23/2018 5:52 PM EDT [facility] Diagnostic Imaging Department [address] [place] [address] Patient: ??LISSA WELLER ?/Age/Sex: 1970 - 48 - F Unit#: ??[id number] ? Location/Status: ??SPDIMAM/REG CLI ? Mnemonic/Ordering Site: ??DIGSC/SPMAM Ordering Physician: ??KRISTEN PENA VALUE ENGINEER Gilma Screening Digital - 11/23/18 - 1507 History: Bilateral breast cancer screening. Technique: Digital mammography. Conventional CC and MLO projections with tomosynthesis MLO views and computer aided detection. Comparison made with previous mammograms from [facility] 11/04/2016 and 2016. Findings: Breast tissue consists of a heterogenous combination of ??fatty and fibroglandular tissue, potentially obscuring small lesions, category c density. There are benign calcifications bilaterally. No suspicious group of microcalcification, suspicious mass, concerning focal asymmetry, architectural distortion or concerning change in breast density affecting either breast. Impression: ??No evidence of malignancy. BIRADS category 2; benign findings, 3342F 31608, [address]15 A negative mammogram in the face of a clinically suspicious abnormality does not exclude the possibility of malignancy nor alter the indications for biopsy. Note: Patient information entered ??into a reminder system with a target due date for the next mammogram; PQRI II [id number] Dictating Physician: ??TRAVIS PALACIOS MD Electronically Signed by: ??TRAVIS PALACIOS MD Dic Date/Time: ??11/23/181750 Sign date/Time: ??11/23/181751 Procedure Note Travis Palacios - 04/27/2022 [facility] Diagnostic Imaging Department [address] [place], [place] [id number] Patient: LISSA WELLER /Age/Sex: 1970 - 48 -F Unit#: [id number] Location/Status: SPDIMA/REG CLI Mnemonic/Ordering Site: [facility] Ordering Physician: KRISTEN PENA Gilma Screening Digital - 11/23/18 - 1507 History: Bilateral breast cancer screening. Technique: Digital mammography. Conventional CC and MLO projections with tomosynthesis MLO views and computer aided detection. Comparison made with previous mammograms from [facility]2016 and 2016. Findings: Breast tissue consists of a heterogenous combination of fattyand fibroglandular tissue, potentially obscuring small lesions, category cdensity. There are benign calcifications bilaterally. No suspicious group of microcalcification, suspicious mass, concerning focal asymmetry,architectural distortion or concerning change in breast density affecting eitherbreast. Impression: No evidence of malignancy. BIRADS category 2; benign findings, [id number] 26674, [address]129 A negative mammogram in the face of a clinically suspicious abnormalitydoes not exclude the possibility of malignancy nor alter the indications forbiopsy. Note: Patient information entered into a reminder system with a targetdue date for the next mammogram; PQRI II [id number] Dictating Physician: TRAVIS PALACIOS MD Electronically Signed by: TRAVIS PALACIOS MD Dic Date/Time: 11/23/181750 Sign date/Time: 11/23/181751 Kristen BIGGS IMG BI PROCEDURES from Last 3 Months or Most Recently Relevant to Health Maintenance Care Teams J2Ee Android Developer Relationship Specialty Start Date End Date Vladimir Rodriges MD [address] [place] [address] PCP - General Internal Medicine 05/05/24
--- OUTSIDE RECORDS SUMMARY | 2024-06-12 14:32 | XMS_ITS | Clinical Summary ---
Author Organization [facility] Address [address] [place] [address] Care Team Providers Care Patient'S Librarian Name Role Phone Lilliam Frazier Primary Care Provider [phone] Source Comments PLEASE NOTE, if this patient is a minor, it may be UNLAWFUL to discuss sensitive information that is contained in these records (such as FAMILY PLANNING, MENTAL HEALTH or SUBSTANCE ABUSE) with the minor patient's parent or other person without the patient's specific authorization.[facility] Allergies Active Allergy Reactions Criticality Noted Date Comments Crustaceans Swelling 10/24/2016 Per Pt Oxycodone-Acetaminophen Other (See Comments) Lower BP- per pt Medications albuterol sulfate 90 mcg/actuation inhalerIndications :Shortness of breath Inhale 2 Puffs into the lungs every 4 (four) hours as needed for shortness of breath or wheezing 18 g 9 Active fluticasone propionate (FLONASE) 50 mcg/actuation nasal sprayIndications:A llergic rhinitis, unspecified seasonality, unspecified trigger Place 1 [place] in both nostrils once daily 16 g 9 Active loratadine (CLARITIN) 10 mg tabletIndications: Allergic rhinitis, unspecified seasonality, unspecified trigger Take 1 Tab by mouth once daily as needed for allergies 30 Tab 9 Active levothyroxine 88 mcg tabletIndications: Acquired hypothyroidism Take 1 Tablet by mouth once daily 90 Each 2 1 Active Active Problems Problem Noted Date Diagnosed Date Elevated LFTs 12/10/2020 Hearing loss 03/05/2017 Overview (03/05/2017): Audiology testing 01/31/17 at [facility] showed moderate loss Right ear and profound sensorineural hearing loss left ear - Declined CROS or BAHA Acquired hypothyroidism 10/25/2016 Obesity (BMI 30.0-34.9) 10/25/2016 Immunizations Name Administration Dates Next Due Hep B, Adult/Adol (ENERGIX/RECOMBIVAX) 9,11/30/2018,10/31/2018 PPD 08/27/2018 TDAP 10/31/2018 Family History Medical History Relation Name Comments Diabetes Father Other (See Comments) Father prostat e - BPH Hypertension Mother Relation Name Status Comments Brother Alive Alve and well Father Alive Mother Alive Sister Alive 1 - Alive and w ell Social History Tobacco Use Types Packs/Day Years Used Date Smoking Tobacco: Former Smokeless Tobacco: Never Comments:Quit - 2010 Alcohol Use Standard Drinks/Week Comments No 0 (1 standard drink = 0.6 oz pur e alcohol) Social Connections Answer Date Recorded Connectedness 0 11/26/2019 Financial Resource Strain Answer Date R ecorded Financial Resource Strain 0 2019 Stress Answer Date Recorded Stress 0 11/26/2019 Physical Activity Answer Date Recorded Physical Activity 0 11/26/2019 Food Insecurity Answer Date Recorded Food 0 11/26/2019 Transportation Needs Answer Date Record ed Transportation 0 11/26/2019 Housing Stability Answer Date Recorded Housing 0 11/26/2019 Safety and Environment Answer Date Catracho rded Safety 0 11/26/2019 Utilities Answer Date Recorded Utilities 0 11/26/2019 Employment Answer Date Recorded Stress 0 11/26/2019 Comments No Sex and Gender Information Value Date Recorded Sex Assigned at Female 05/10/2017 6:24 AM PST Legal Sex Female 1:03 PM PDT Gender Identity Female 05/10/2017 6:24 AM PST Sexual Orientation Straight 05/10/2017 6: 24 AM PST Last Filed Vital Signs Vital Sign Reading Time Taken Comments Blood Pressure 118/76 09/09/2020 9:27 AM EDT Pulse 88 09/09/2020 9:27 AM EDT Temperature 37.2 ??C (98.9 ??F) 09/09/2020 9:27 AM ED T Respiratory Rate 16 09/09/2020 9:27 AM EDT Oxygen Saturation 97% 09/09/2020 9:27 AM EDT Inhaled Oxygen Concentration - - Weight 71.8 kg (158 lb 4.8 oz) 09/09/2020 9:27 A M EDT Height 149.9 cm (4' 11 ) 09/09/2020 9:27 AM EDT Body Mass Index 31.97 09/09/2020 9:27 AM EDT Plan of Treatment Not on file Insurance [employer] [id number] Care Teams Patient'S Librarian Relationship Specialty Start Date End Date Lilliam Frazier PA [facility] [place] [address] PCP - General Primary Care 06/19/23
== END 2024-06-12 14:00 | disposition home or self-care (01) ==
PROVIDERS: PCP Internal Medicine; Visit Provider Internal Medicine
DX: Z00.01 Encounter for general adult medical examination with abnormal findings (principal); N95.0 Postmenopausal bleeding; E03.8 Other specified hypothyroidism; E66.09 Other obesity due to excess calories; Z68.32 Body mass index [BMI] 32.0-32.9, adult; R79.89 Other specified abnormal findings of blood chemistry; H91.92 Unspecified hearing loss, left ear

== ENCOUNTER → 2024-06-12 13:10 | Outpatient (BNVA) | payer MEDICAID, SELFPAY | PROVIDERS: PCP Internal Medicine; Visit Provider Internal Medicine | DX: Z00.01 Encounter for general adult medical examination with abnormal findings (principal); N95.0 Postmenopausal bleeding; E03.8 Other specified hypothyroidism; E66.09 Other obesity due to excess calories; Z68.32 Body mass index [BMI] 32.0-32.9, adult; R79.89 Other specified abnormal findings of blood chemistry; H91.92 Unspecified hearing loss, left ear | CPT/HCPCS: 96127; 99212; 99396 ==

== ENCOUNTER 2024-06-19 14:28 | Outpatient (REF) | payer OTHER, SELFPAY ==
--- NOTE | ~2024-06-19 | US_ITS ---
EXAMINATION: US PELVIS TRANSABDOMINAL AND TRANSVAGINAL HISTORY: N95.0 - Postmenopausal bleeding COMPARISON: There are no prior studies for comparison. TECHNIQUE: Transabdominal and endovaginal real-time 2D crespo-scale ultrasound was performed. Endovaginal examination is limited by the uterine position. FINDINGS: Uterus: The uterus is normal in size, measuring 9.5 x 2.0 x 5.0 cm. Myometrium has a normal echotexture. No fibroids are identified. Endometrium: The endometrial stripe measures 3 mm in thickness. Right ovary: The right ovary is not identified. Left ovary: The left ovary measures 2.7 x 1.0 x 1.9 cm. The left ovary is normal in size and echotexture. Pelvic fluid: none. US/US pelvic and transvaginal IMPRESSION: The right ovary is not identified. No uterine or left ovarian abnormality is seen. Electronically signed by: Rusty Gorman MD 06/19/2024 03:05 PM [facility]
--- OUTSIDE RECORDS SUMMARY | 2024-06-19 15:42 | XMS_ITS | Encounter Summary ---
Author Organization [facility] Address [address] [place] [address] Care Team Providers Care Fur Cleaner Name Role Phone Vladimir Rodriges MD Primary Care Provider [phone] Reason for Visit * Reason Comments Arm Injury Encounter Details Date Type Department Care Team ([facility] st Contact Info) Description 06/14/2024 8:02 PM EST - 06/14/2024 8:57 PM EST Emergency [facility] Emergency [address] [place] [address] Acute pain of right shoulder (Primary Dx) Discharge Disposition: Home or Self Care Social History Tobacco Use Types Packs/Day Years Used Date Smoking Tobacco: Unknown Tobacco Cessation:Counseling Given: Not Answered Comments Unknown Sex and Gender Information Value Date Recorded Sex Assigned at Not on file Legal Sex Female 5:26 PM EST Gender Identity Not on file Sexual Orientation Not on file documented as of this encounter Last Filed Vital Signs Vital Sign Reading Time Taken Comments Blood Pressure 126/90 06/14/2024 7:02 PM EST Pulse 75 06/14/2024 7:02 PM EST Temperature 36.2 ??C (97.1 ??F) 06/14/2024 7:02 PM ES T Respiratory Rate 17 06/14/2024 7:02 PM EST Oxygen Saturation 100% 06/14/2024 8:32 PM EST Inhaled Oxygen Concentration - - Weight 72.6 kg (160 lb) 06/14/2024 7:02 PM EST Height 149.9 cm (4' 11 ) 06/14/2024 7:02 PM EST Body Mass Index 32.32 06/14/2024 7:02 PM EST documented in this encounter Discharge Instructions * Discharge Instructions* OLAF Bush 06/14/2024 8:42 PM EST You are seen in the ER today for right shoulder pain. We did do an x-ray which does not show any evidence of acute fracture or dislocation. You could have pinched a nerve or strained a muscle. I highly recommend applying ice for 20 minutes3-4 times a day. Try to practice gentle stretches and exercises. I also recommend taking Tylenol for pain. I did send Voltaren gel to your pharmacy, you may apply this on your shoulder. If that does not work, we did discuss trying a lidocaine patches. Please do not use both at the same time. Please f/u w ortho if pain does not subside after a few days and you are still unable to bear weight. Please return to the ER immediately if you experience any changes of color, temperature, sensation,new weakness, sudden increase in pain, or any other concerning findings. It was a pleasure caring for you today in the emergency department. Please return to the emergency department if you begin to experience any new onset chest pain, shortness of breath, uncontrolled fevers, severe abdominal pain, loss of consciousness, uncontrolled vomiting, uncontrolled diarrhea, or for any other reason you feel is necessary. Please follow-up with your PCP about this visit. Examination and treatment you received in the emergency department has been rendered on an EMERGENCY basis only. It is not intended to be a substitute for or an effort to provide complete medical care. You should follow-up with your primary care provider. Please report to your physician any new or remaining problems, because it is impossible to recognize and treat all elements of injury or illness in a single emergency department visit. If you do not have a primary care provider or require a referral, a follow-up doctor commercial construction project manager for the emergency department will be provided in your discharge packet. In the event that you're unable to obtain a followup appointment in a timely fashion, OR you are not getting any better, OR you are getting worse, OR you develop any symptoms of concern, please return here immediately for further evaluation. The emergency department is open 24 hours a day, 7 days aweek. Your discharge report is based on information that was available when you were in the emergency department If you do not have a primary care provider, please contact one of the following to make arrangements to follow up. Anita Willis [facility] documented in this encounter Medications at Time of Discharge diclofenac (VOLTAREN) 1 % topical gel Apply 2 g topically 4 (four) times a day for 7 days. 20 g 06/14/2024 5 lidocaine 4 % patch Apply 1 patch topically 1 (one) time each day. 30 each 06/14/2024 5 documented as of this encounter Ordered Prescriptions Prescription Sig Dispense Quantity Refills Last Filled Start Date End Date lidocaine 4 % patch Apply 1 patch topically 1 (one) time each day. 30 each 06/14/2024 5 diclofenac (VOLTAREN) 1 % topical gel Apply 2 g topically 4 (four) times a day for 7 days. 20 g 06/14/2024 5 documented in this encounter Discharge Disposition Disposition Code Departure Means Destination Comment s Home or Self Intermediate Pt provided discharge instructions, plan of care, prescription, pt verbalizes understanding, steady gait to exit documented in this encounter Progress Notes * Vinay Keyes RN - 06/14/2024 7:00 PM EST Pt presents for right shoulder pain, with no trauma or injury, pt has full ROM. States pain is intermittent. No pain when she wakes up, worsens throughout the day. Pt is ambulatory, a/ox3 * OLAF Bush - 06/14/2024 6:44 PM EST Emergency Medicine Note Patient Name: Lissa Forte Initial Evaluation: 06/14/2024 : 1970 Patient's PCP: Vladimir Rodriges MD Emergency Physician: OLAF Bush History of Present Illness Chief Complaint: Chief Complaint Patient presents with ??? Arm Injury HPI: 53-year-old female patient otherwise healthy presenting to the ER today reporting right-sided shoulder pain. Patient reports that she woke up this morning with some right-sided shoulder pain with movement. Patient reports when she lifts her arm straight overhead she feels a pinching in the front of her shoulder where she would have reached forward and point her thumbs down she is also feeling a pinching. She does not recall specifically hurting her shoulder and reports no previous episodesof this. Denying any chest pain or shortness of breath. Denies any redness warmth or swelling of the right upper extremity. Denies change to color or temperature strength. Has not tried any OTC medica tions. ROS: I have performed a ROS with the pertinent positives and negatives documented in the history ofpresent illness. Previous History History reviewed. No pertinent past medical history. History reviewed. No pertinent surgical history. Social History Tobacco Use ??? Smoking status: Unknown No family history on file. is allergic to percocet [oxycodone-acetaminophen] and shellfish derived. No current facility-administered medications on file prior to encounter. No current outpatient medications on file prior to encounter. Physical Exam Physical Exam Constitutional: General: She is not in acute distress. Appearance: Normal appearance. She is not ill-appearing, toxic-appearing or diaphoretic. HENT: Head: Normocephalic and atraumatic. Eyes: Extraocular Movements: Extraocular movements intact. Pupils: Pupils are equal, round, and reactive to light. Pulmonary: Effort: Pulmonary effort is normal. Musculoskeletal: Comments: Full range of motion of the right shoulder with some pain elicited with the Neer's test and empty can test. Distally neurovascular intact, 5/5 strength, normal tone, cap refill normal, radial pulse normal Skin: General: Skin is warm. Neurological: General: No focal deficit present. Mental Status: She is alert and oriented to person, place, and time. Mental status is at baseline. Psychiatric: Mood and Affect: Mood normal. Behavior: Behavior normal. Thought Content: Thought content normal. Judgment: Judgment normal. ED Triage Vitals [06/14/24 1902] Temp Heart Rate Resp BP 36.2 ??C (97.1 ??F) 75 17 (!) 126/90 SpO2 Temp src Heart Rate Source Patient Position 100 % -- -- -- BP Location FiO2 (%) -- -- Results Labs Reviewed - No data to display Abnormal Labs Reviewed - No data to display XR Shoulder 2+ Views Right (Results Pending) I have discussed the incidental/abnormal imaging and/or lab abnormalities with the patient and haveinstructed them the need for further evaluation and workup with their primary care doctor. I have provided the patient with a paper copy of the abnormality. The laboratory results, imaging results and other diagnostic exam results were reviewed in the EMR. EKG Interpretation Critical Care Time None Medical Decision Making Medications - No data to display Medical Decision Making Differential diagnosis include but not limited to: Arthritis Nerve impingement Muscular strain Muscle spasm Adhesive capsulitis Septic arthritis In short 53-year-old female patient presenting for 1 day of right shoulder pain reproducible with movement. On arrival vitals are stable patient afebrile. Patient sitting comfortably in chair, nontoxic and in no acute distress, hemodynamically stable. Patient has full range of motion of shoulder which is reassuring with suspicion for adhesive capsulitis. No erythema warmth or swelling noted to the joint and neurovascular intact distally. Patient requesting x-ray. Will put an x-ray with anticipate discharge home with supportive care measures. Patient has not taken any OTC medication. ED Course as of 06/15/24231Jun 14, 20242050 Independent interpretation of the shoulder x-ray shows no obvious fracture or deformity. Will discharge home with strict return precautions, supportive care measures. Strict return precautions agrees with plan. [ES] ED Course User Index [ES] OLAF Bush Clinical Impressions as of 06/15/24231 Acute pain of right shoulder Procedures Procedures Diagnosis 1. Acute pain of right shoulder Disposition Discharge ED Prescriptions Medication Sig Dispense Start Date End Date Auth. Provider diclofenac (VOLTAREN) 1 % topical gel Apply 2 g topically 4 (four) times a day for 7 days. 20 g 06/14/2024 06/21/2024 OLAF Bush lidocaine 4 % patch Apply 1 patch topically 1 (one) time each day. 30 each 06/14/2024 07/14/2024 OLAF Bush Physician Attestation OLAF Bush 06/14/242041 OLAF Bush 06/15/24231 Cosigned by Toshia Levi DO at 06/15/2024 3:05 PM EST documented in this encounter Plan of Treatment Not on file documented as of this encounter Procedures Procedure Name Priority Date/Time Associated Diagnosis Comments XR SHOULDER 2+ VIEWS RIGHT STAT 06/14/2024 8:46 PM EST documented in this encounter Results * XR Shoulder 2+ Views Right (06/14/2024 8:46 PM EST) Anatomical Region Laterality Modality Upper Extremities, Shoulder Right Radi ographic Imaging 06/15/2024 7:32 AM EST Impressions 06/15/2024 7:33 AM EST Normal right shoulder exam. -------- FINAL REPORT -------- Dictated By: Tejas Mares Dictated Date: 06/15/2024 07:32 ET Assigned Physician: Tejas Mares Reviewed and Electronically Signed By: Tejas Mares Signed Date: 06/15/2024 07:33 ET Workstation ID: [id number] Transcribed By: Self Edit Transcribed Date: 06/15/2024 07:32 ET Narrative 06/15/2024 7:33 AM EST Examination: Right shoulder. COMPARISON: None. CLINICAL INDICATION: Pain. FINDINGS: The glenohumeral and AC joint are in alignment. No visible acute fracture, dislocation or subluxation seen. The soft tissues are normal. Procedure Note Tejas Mares MD - 06/15/2024 Examination: Right shoulder. COMPARISON: None. CLINICAL INDICATION: Pain. FINDINGS: The glenohumeral and AC joint are in alignment. No visible acutefracture, dislocation or subluxation seen. The soft tissues are normal. IMPRESSION: Normal right shoulder exam. -------- FINAL REPORT -------- Dictated By: Tejas Mares Dictated Date: 06/15/2024 07:32 ET Assigned Physician: Tejas Mares Reviewed and Electronically Signed By: Tejas Mares Signed Date: 06/15/2024 07:33 ET Workstation ID: [id number] Transcribed By: Self Edit Transcribed Date: 06/15/2024 07:32 ET us Nicol BABIN IMG XR PROCEDURES Final Re sult documented in this encounter Visit Diagnoses Diagnosis Acute pain of right shoulder- Primary documented in this encounter Care Teams Fur Cleaner Relationship Specialty Start Date End Date Vladimir Rodriges MD [address] [place] [address] PCP - General Internal Medicine 05/05/24 documented as of this encounter
--- OUTSIDE RECORDS SUMMARY | 2024-06-19 15:42 | XMS_ITS | Clinical Summary ---
Author Organization [facility] Address [address] [place] [address] Care Team Providers Care City Sanitarian Name Role Phone Lilliam Frazier Primary Care Provider [phone] Source Comments PLEASE NOTE, if this patient [...] rhinitis, unspecified seasonality, unspecified trigger Place [address] [place] in both nostrils once daily 16 g [...] 03/05/2017 Overview (03/05/2017): Audiology testing 01/31/17 at [facility] showed moderate loss Right ear and [...] Not on file Insurance [employer] [place] [place] [id number] Care Teams City Sanitarian Relationship Specialty Start Date End Date Lilliam Frazier PA [facility] [place] [address] PCP - General Primary Care 06/19/23
--- OUTSIDE RECORDS SUMMARY | 2024-06-19 15:42 | XMS_ITS | Clinical Summary ---
Author Organization [facility] Address [address] [place] [address] Phone Care Team Providers Care Lawn Service Supervisor Name Role Phone Vladimir Rodriges MD Primary Care Provider [phone] Allergies Active Allergy Reactions Criticality Noted Date Comments Oxycodone-Acetaminophen Nausea And Vomiting Shellfish Derived Itching 05/05/2024 Medications diclofenac (VOLTAREN) 1 % topical gel Apply 2 g topically 4 (four) times a day for 7 days. 20 g 5 06/21/19 25 Active lidocaine 4 % patch Apply 1 patch topically 1 (one) time each day. 30 each 5 07/15/19 25 Active omeprazole (PriLOSEC) [address] capsule Take 1 capsule (20 mg total) by mouth 1 (one) time each day. Do not crush or chew. 30 each 4 06/04/19 25 Active Problems No known active problems Encounters Date Type Department Care Team Description 06/14/2024 8:02 PM EST - 06/14/2024 8:57 PM [facility] Emergency [address] [place] [address] Acute pain of right shoulder (Primary Dx) Discharge Disposition: Home or Self Care 05/05/2024 7:51 AM EST - 05/05/2024 12:33 PM [facility] Emergency [address] [place] [address] Topher Mcmanus MD Nausea and [...] on file Sexual Orientation Not on file Obstetrics History Last Filed [...] Mass Index 32.32 06/14/2024 7:02 PM EST Plan of Treatment Health Maintenance Due Date Last Done Comments Cervical Cancer Screening: P ap Smear 1993 Breast Cancer Screening 11/23/2020 11/23/2018 Colorectal Cancer Screening: Colonoscopy 04/09/2022 Depression Screening 04/09/2022 Social Influencers of Health Screening 04/09/2022 Pneumococcal Vaccine: 50+ Years (1 of 1 - PCV) 2022 Zoster Vaccines (1 of 2) 2022 COVID-19 Vaccine ( - 2023-2 5 season) 2024 Influenza Vaccine (#1) 2024 [...] patient's age to complete this topic Meningococcal B Vacine Aged Out No lo nger eligible based on patient's age to complete [...] VIEWS RIGHT STAT 06/14/2024 8:46 PM EST BARGER URINE CULTURE TUBE STAT 05/05/2024 9:46 [...] Recently Relevant to Health Maintenance Results * XR Shoulder 2+ Views Right [...] Signed Date: 06/15/2024 07:33 ET Workstation ID: [id number] Transcribed By: Self Edit Transcribed Date: 06/15/2024 [...] Signed Date: 06/15/2024 07:33 ET Workstation ID: [id number] Transcribed By: Self Edit Transcribed Date: 06/15/2024 07:32 ET us Nicol BABIN IMG XR PROCEDURES Final Re sult * (ABNORMAL) Urinalysis with reflex microscopic and culture (05/05/2024 9:46 AM EST) Specific [place] Urine 1.018 1.003 - 1.030 LAB URINALYSIS - AUTOMATED METHOD 05/05/2024 10:24 AM [facility] pH, Urine 6.5 5.0 - 8.0 pH LAB URINALYSIS - AUTOMATED METHOD 05/05/2024 10:24 AM [facility] Leukocytes, Urine Negative Negative LAB URINALYSIS - AUTOMATED METHOD 05/05/2024 10:24 AM [facility] Nitrite, Urine Negative Negative LAB URINALYSIS - AUTOMATED METHOD 05/05/2024 10:24 AM [facility] Protein, Urine Negative <=Trace mg/dL LAB URINALYSIS - AUTOMATED METHOD 05/05/2024 10:24 AM [facility] Glucose, Urine Negative Negative mg/dL LAB URINALYSIS - AUTOMATED METHOD 05/05/2024 10:24 AM [facility] Ketones, Urine Negative Negative mg/dL LAB URINALYSIS - AUTOMATED METHOD 05/05/2024 10:24 AM [facility] Urobilinogen, Urine 0.2 0.2 - 1.0 mg/dL LAB URINALYSIS - AUTOMATED METHOD 05/05/2024 10:24 AM [facility] Bilirubin, Urine Negative Negative LAB URINALYSIS - AUTOMATED METHOD 05/05/2024 10:24 AM [facility] Blood, Urine Trace(A) Negative LAB URINALYSIS - AUTOMATED METHOD 05/05/2024 10:24 AM [facility] RBC, Urine 5.9(H) 0 - 4 /HPF LAB URINALYSIS - AUTOMATED METHOD 05/05/2024 10:24 AM [facility] WBC, Urine 1.5 0 - 4 /HPF LAB URINALYSIS - AUTOMATED METHOD 05/05/2024 10:24 AM [facility] Squamous Epithelial, Urine 35 0 - 60 /LPF LAB URINALYSIS - AUTOMATED METHOD 05/05/2024 10:24 AM [facility] Bacteria, Urine Negative Negative /HPF LAB URINALYSIS - AUTOMATED METHOD 05/05/2024 10:24 AM [facility] Hyaline Casts, Urine 0.8 0 - 3 /LPF LAB URINALYSIS - AUTOMATED METHOD 05/05/2024 10:24 AM [facility] Urine Urine specimen obtained by clean catch procedure / Unknown Non-blood Collection / Unknown 05/05/2024 9:46 AM EST 05/05/2024 10:15 AM EST Nicanor BABIN LAB URINE ORDERABLES Final R esult Performing Organization Address City/[facility]/ZIP Co de Phone Number [facility] [address] [place] [address], [place] [phone] * Barger urine culture tube (05/05/2024 9:46 AM EST) Pathologist [facility] Extra Tube Hold for add-ons. 05/05/2024 12:01 PM [facility] Comment:Auto resulted. Urine Urine specimen obtained by clean catch procedure / Unknown Non-blood Collection / Unknown 05/05/2024 9:46 AM EST 05/05/2024 10:15 AM EST Nicanor BABIN LAB URINE ORDERABLES Final R esult [facility] [address] [place] [address], [place] [phone] * Respiratory virus panel molecular study (05/05/2024 9:26 AM EST) Adenovirus Detection by PCR Not Detected Not Detected LAB MICROBIOLOGY METHOD 05/05/2024 11:38 AM [facility] Influenza A PCR Not Detected Not Detected LAB MICROBIOLOGY METHOD 05/05/2024 11:38 AM [facility] Influenza B PCR Not Detected Not Detected LAB MICROBIOLOGY METHOD 05/05/2024 11:38 AM [facility] Coronavirus 229E Not Detected Not Detected LAB MICROBIOLOGY METHOD 05/05/2024 11:38 AM [facility] Coronavirus HKU1 Not Detected Not Detected LAB MICROBIOLOGY METHOD 05/05/2024 11:38 AM [facility] Coronavirus OC43 Not Detected Not Detected LAB MICROBIOLOGY METHOD 05/05/2024 11:38 AM [facility] Coronavirus NL63 Not Detected Not Detected LAB MICROBIOLOGY METHOD 05/05/2024 11:38 AM [facility] Parainfluenza Virus 1 Not Detected Not Detected LAB MICROBIOLOGY METHOD 05/05/2024 11:38 AM [facility] Parainfluenza Virus 2 Not Detected Not Detected LAB MICROBIOLOGY METHOD 05/05/2024 11:38 AM [facility] Parainfluenza Virus 3 Not Detected Not Detected LAB MICROBIOLOGY METHOD 05/05/2024 11:38 AM [facility] Parainfluenza Virus 4 Not Detected Not Detected LAB MICROBIOLOGY METHOD 05/05/2024 11:38 AM [facility] RSV PCR Not Detected Not Detected LAB MICROBIOLOGY METHOD 05/05/2024 11:38 AM [facility] Human Metapneumovirus A and B Not Detected Not Detected LAB MICROBIOLOGY METHOD 05/05/2024 11:38 AM [facility] Rhinovirus/Entero virus Not Detected Not Detected LAB MICROBIOLOGY METHOD 05/05/2024 11:38 AM [facility] Bordetella pertussis Not Detected Not Detected LAB MICROBIOLOGY METHOD 05/05/2024 11:38 AM [facility] Bordetella parapertussis Not Detected Not Detected LAB MICROBIOLOGY METHOD 05/05/2024 11:38 AM [facility] Mycoplasma pneumo by PCR Not Detected Not Detected LAB MICROBIOLOGY METHOD 05/05/2024 11:38 AM EST [facility] Chlamydia pneumoniae Not Detected Not Detected LAB MICROBIOLOGY METHOD 05/05/2024 11:38 AM [facility] SARS COV-2 Not Detected Not Detected LAB MICROBIOLOGY METHOD 05/05/2024 11:38 AM [facility] Swab Both anterior nares / Unknown Non-blood Collection / Unknown 05/05/2024 9:26 AM EST 05/05/2024 10:16 AM EST [facility] - 05/05/2024 11:38 AM EST Testing was performed using the Exit41 Respiratory Pathogen PCR Assay. All results must [...] that are below the limit of detection. us Mykel BABIN LAB MICROBIOLOGY - GENERA L ORDERABLES Final Result [facility] [address] [place] [address], * (ABNORMAL) CBC auto differential (05/05/2024 8:07 AM EST) WBC 6.6 4.8 - 10.8 K/mcL LAB HEMETOLOGY METHOD 05/05/2024 8:48 AM [facility] RBC 5.00(H) 3.80 - 4.80 M/mcL LAB HEMETOLOGY METHOD 05/05/2024 8:48 AM [facility] Hemoglobin 14.3 11.5 - 16.0 g/dL LAB HEMETOLOGY METHOD 05/05/2024 8:48 AM [facility] Hematocrit 42.1 35.0 - 47.0 % LAB HEMETOLOGY METHOD 05/05/2024 8:48 AM [facility] MCV 84.2 79.0 - 98.0 FL LAB HEMETOLOGY METHOD 05/05/2024 8:48 AM [facility] MCH 28.6 27.0 - 32.0 pcg LAB HEMETOLOGY METHOD 05/05/2024 8:48 AM [facility] MCHC 34.0 32.0 - 37.0 g/dL LAB HEMETOLOGY METHOD 05/05/2024 8:48 AM [facility] RDW 11.9 11.0 - 15.0 % LAB HEMETOLOGY METHOD 05/05/2024 8:48 AM [facility] Platelets 192 130 - 400 K/mcL LAB HEMETOLOGY METHOD 05/05/2024 8:48 AM [facility] MPV 10.9 7.0 - 11.0 FL LAB HEMETOLOGY METHOD 05/05/2024 8:48 AM [facility] NRBC 0.0 <1.0 % LAB HEMETOLOGY METHOD 05/05/2024 8:48 AM [facility] NRBC Absolute 0.00 <0.10 K/mcL LAB HEMETOLOGY METHOD 05/05/2024 8:48 AM [facility] Neutrophils Relative 85.8 % LAB HEMETOLOGY METHOD 05/05/2024 8:48 AM [facility] Lymphocytes Relative 6.7 % LAB HEMETOLOGY METHOD 05/05/2024 8:48 AM [facility] Monocytes Relative 4.7 % LAB HEMETOLOGY METHOD 05/05/2024 8:48 AM [facility] Eosinophils Relative 1.7 % LAB HEMETOLOGY METHOD 05/05/2024 8:48 AM [facility] Basophils Relative 0.3 % LAB HEMETOLOGY METHOD 05/05/2024 8:48 AM [facility] Immature Granulocytes Relative 0.8 % LAB HEMETOLOGY METHOD 05/05/2024 8:48 AM EST [facility] Neutrophils Absolute 5.63 1.50 - 7.00 K/mcL LAB HEMETOLOGY METHOD 05/05/2024 8:48 AM EST [facility] Lymphocytes Absolute 0.44(L) 1.00 - 5.00 K/mcL LAB HEMETOLOGY METHOD 05/05/2024 8:48 AM EST [facility] Monocytes Absolute 0.31 0.20 - 1.00 K/[facility] LAB HEMETOLOGY METHOD 05/05/2024 8:48 AM EST [facility] Eosinophils Absolute 0.11 0.00 - 0.50 K/mcL LAB HEMETOLOGY METHOD 05/05/2024 8:48 AM EST [facility] Basophils Absolute 0.02 0.00 - 0.20 K/mcL LAB HEMETOLOGY METHOD 05/05/2024 8:48 AM EST [facility] Immature Granulocytes Absolute 0.05(H) 0.00 - 0.03 K/mcL LAB HEMETOLOGY METHOD 05/05/2024 8:48 AM EST [facility] Blood Venous blood specimen / Unknown Venipuncture / Unknown 05/05/2024 8:07 AM EST 05/05/2024 8:42 AM EST us Nicanor BABIN LAB BLOOD ORDERABLES Final R esult [facility] [address] [place] [address], * (ABNORMAL) Magnesium (05/05/2024 8:07 AM EST) Magnesium 1.7(L) 1.9 - 2.6 mg/dL LAB CHEMISTRY METHOD 05/05/2024 9:14 AM EST [facility] Comment:Hemolysis present Blood Venous blood specimen / Unknown Venipuncture / Unknown 05/05/2024 8:07 AM EST 05/05/2024 8:42 AM EST iNcanor BABIN LAB BLOOD ORDERABLES Final R esult Performing Organization Address [facility]/ZIP Co de Phone Number [facility] [address] [place] [address], [place] [phone] * Lipase (05/05/2024 8:07 AM EST) Pathologist [facility] Lipase 41 13 - 75 unit/L LAB CHEMISTRY METHOD 05/05/2024 9:14 AM [facility] Blood Venous blood specimen / Unknown Venipuncture / Unknown 05/05/2024 8:07 AM EST 05/05/2024 8:42 AM EST Nicanor BABIN LAB BLOOD ORDERABLES Final R esult Performing Organization Address City/[facility]/ZIP Co de Phone Number [facility] [address] [place] [address], [place] [phone] * (ABNORMAL) Comprehensive metabolic panel (05/05/2024 8:07 AM EST) Pathologist [facility] Sodium 139 133 - 145 mmol/L LAB CHEMISTRY METHOD 05/05/2024 9:14 AM [facility] Potassium 4.1 3.5 - 5.5 mmol/L LAB CHEMISTRY METHOD 05/05/2024 9:14 AM [facility] Comment:Hemolysis present Chloride 106 96 - 110 mmol/L LAB CHEMISTRY METHOD 05/05/2024 9:14 AM [facility] CO2 26 21 - 32 mmol/L LAB CHEMISTRY METHOD 05/05/2024 9:14 AM [facility] Anion Gap 7 3 - 11 LAB CHEMISTRY METHOD 05/05/2024 9:14 AM [facility] Glucose 121(H) 70 - 100 mg/dL LAB CHEMISTRY METHOD 05/05/2024 9:14 AM [facility] BUN 13 5 - 25 mg/dL LAB CHEMISTRY METHOD 05/05/2024 9:14 AM [facility] Creatinine 0.69 0.50 - 1.10 mg/dL LAB CHEMISTRY METHOD 05/05/2024 9:14 AM [facility] eGFR 105 >=60 mL/min/1. 73m2 LAB CHEMISTRY METHOD 05/05/2024 9:14 AM [facility] Comment:Calculation based on the??Chronic Kidney Disease Epidemiology Collaboration (CKD-EPI) equation refit??without adjustment for race. BUN/Creatinine Ratio 18.8 LAB CHEMISTRY METHOD 05/05/2024 9:14 AM [facility] Calcium 9.4 8.5 - 10.5 mg/dL LAB CHEMISTRY METHOD 05/05/2024 9:14 AM [facility] AST (SGOT) 52(H) 10 - 42 unit/L LAB CHEMISTRY METHOD 05/05/2024 9:14 AM [facility] Comment:Hemolysis present ALT (SGPT) 48 10 - 60 unit/L LAB CHEMISTRY METHOD 05/05/2024 9:14 AM [facility] Alkaline Phosphatase 100 42 - 121 unit/L LAB CHEMISTRY METHOD 05/05/2024 9:14 AM [facility] Total Protein 7.2 6.0 - 8.0 g/dL LAB CHEMISTRY METHOD 05/05/2024 9:14 AM [facility] Albumin 4.1 3.2 - 5.0 g/dL LAB CHEMISTRY METHOD 05/05/2024 9:14 AM [facility] Total Bilirubin 1.0 0.0 - 1.4 mg/dL LAB CHEMISTRY METHOD 05/05/2024 9:14 AM [facility] Blood Venous blood specimen / Unknown Venipuncture / Unknown 05/05/2024 8:07 AM EST 05/05/2024 8:42 AM EST us Nicanor BABIN LAB BLOOD ORDERABLES Final R esult [facility] [address] [place] [address], [place] [phone] * GILMA SCREENING DIGITAL (11/23/2018 5:52 PM EDT) Anatomical Region Laterality Modality Mammography 11/23/2018 2:28 PM EDT Narrative 11/23/2018 5:[address] [facility] Diagnostic Imaging Department [address] [place] [address] Patient: ??LISSA WELLER ?/Age/Sex: 1970 - 48 - F Unit#: ??[id number] ? Location/Status: ??SPDIMAM/REG CLI ? Mnemonic/Ordering Site: ??DIGSC/SPMAM Ordering Physician: ??JIMI PENA CUSTOMER SERVICE ATTENDANT Gilma Screening Digital - 11/23/18 - 150 History: Bilateral breast cancer screening. Technique: Digital mammography. Conventional CC and MLO projections with tomosynthesis MLO views and computer aided detection. Comparison made with previous mammograms from [facility] 11/04/2016 and 2016. Findings: Breast tissue consists of a heterogenous combination of ??fatty and fibroglandular tissue, potentially obscuring small lesions, category c density. There are benign calcifications bilaterally. No suspicious group of microcalcification, suspicious mass, concerning focal asymmetry, architectural distortion or concerning change in breast density affecting either breast. Impression: ??No evidence of malignancy. BIRADS category 2; benign findings, 3342F 74228, 14228 A negative mammogram in the face of a clinically suspicious abnormality does not exclude the possibility of malignancy nor alter the indications for biopsy. Note: Patient information entered ??into a reminder system with a target due date for the next mammogram; PQRI II 7031V Dictating Physician: ??TRAVIS PALACIOS MD Electronically Signed by: ??TRAVIS PALACIOS MD Dic Date/Time: ??11/23/181750 Sign date/Time: ??11/23/181751 Procedure Note Travis Palacios - 04/27/[address] [facility] Diagnostic Imaging Department [address] [place] [address] Patient: LISSA WELLER [place] /Age/Sex: 1970 - 48 -F Unit#: [id number] Location/Status: [facility] Mnemonic/Ordering Site: [facility] Ordering Physician: JIMI PENA Gilma Screening Digital - 11/23/18 - 875 History: Bilateral breast cancer screening. Technique: Digital mammography. Conventional CC and MLO projections with tomosynthesis MLO views and computer aided detection. Comparison made with previous mammograms from [facility] and 2016. Findings: Breast tissue consists of a heterogenous combination of fattyand fibroglandular tissue, potentially obscuring small lesions, category cdensity. There are benign calcifications bilaterally. No suspicious group of microcalcification, suspicious mass, concerning focal asymmetry,architectural distortion or concerning change in breast density affecting eitherbreast. Impression: No evidence of malignancy. BIRADS category 2; benign findings, 3342F 27281, 83067 A negative mammogram in the face of a clinically suspicious abnormalitydoes not exclude the possibility of malignancy nor alter the indications forbiopsy. Note: Patient information entered into a reminder system with a targetdue date for the next mammogram; PQRI II 7025F Dictating Physician: TRAVIS PALACIOS MD Electronically Signed by: TRAVIS PALACIOS MD Dic Date/Time: 11/23/181750 Sign date/Time: 11/23/181751 Nice [place] CUSTOMER SERVICE ATTENDANT IMG BI PROCEDURES Final Result from Last 3 Months or Most Recently Relevant to Health Maintenance [place] [address] [place] [address] [employer] Care Teams Lawn Service Supervisor Relationship Specialty Start Date End Date Vladimir Rodriges MD [address] [place] [id number] PCP - General Internal Medicine 05/05/24
== END 2024-06-19 14:29 | disposition home or self-care (01) ==
LOC: HO.HMGCX 14:28
PROVIDERS: PCP Internal Medicine; Visit Provider Internal Medicine
DX: N95.0 Postmenopausal bleeding (principal)
CPT/HCPCS: 76830; 76856

== ENCOUNTER → 2024-06-19 14:29 | Outpatient (BNV) | payer OTHER, SELFPAY | PROVIDERS: PCP Internal Medicine; Visit Provider Radiology Diagnostic Radiology | DX: N95.0 Postmenopausal bleeding (principal) | CPT/HCPCS: 76830; 76856 ==

== ENCOUNTER 2024-06-21 08:33 | Outpatient (REF) | payer OTHER, SELFPAY ==
--- OUTSIDE RECORDS SUMMARY | 2024-06-21 08:49 | XMS_ITS | Clinical Summary ---
Author Organization [facility] Address [address] [place] [address] Phone Care Team Providers Care Counsel Name Role Phone Vladimir Rodriges MD Primary Care Provider [phone] Allergies Active Allergy Reactions Criticality Noted Date [...] 8:02 PM EST - 06/14/2024 8:57 PM [facility] Emergency [address] [place] [address] Acute pain of right shoulder (Primary Dx) Discharge Disposition: Home or Self Care 05/05/2024 7:51 AM EST - 05/05/2024 12:33 PM [facility] Emergency [address] [place] [address] Topher Mcmanus MD Nausea and [...] Signed Date: 06/15/2024 07:33 ET Workstation ID: [id number] Transcribed By: Self Edit Transcribed Date: 06/15/2024 [...] Signed Date: 06/15/2024 07:33 ET Workstation ID: [id number] Transcribed By: Self Edit Transcribed Date: 06/15/2024 07:32 ET us Nicol BABIN IMG XR PROCEDURES Final Re sult * (ABNORMAL) Urinalysis with reflex microscopic and culture (05/05/2024 9:46 AM EST) Specific [place] Urine 1.018 1.003 - 1.030 LAB URINALYSIS - AUTOMATED METHOD 05/05/2024 10:24 AM [facility] pH, Urine 6.5 5.0 - 8.0 pH LAB URINALYSIS - AUTOMATED METHOD 05/05/2024 10:24 AM [facility] Leukocytes, Urine Negative Negative LAB URINALYSIS - AUTOMATED METHOD 05/05/2024 10:24 AM [facility] Nitrite, Urine Negative Negative LAB URINALYSIS - AUTOMATED METHOD 05/05/2024 10:24 AM [facility] Protein, Urine Negative <=Trace mg/dL LAB URINALYSIS - AUTOMATED METHOD 05/05/2024 10:24 AM [facility] Glucose, Urine Negative Negative mg/dL LAB URINALYSIS - AUTOMATED METHOD 05/05/2024 10:24 AM [facility] Ketones, Urine Negative Negative mg/dL LAB URINALYSIS - AUTOMATED METHOD 05/05/2024 10:24 AM [facility] Urobilinogen, Urine 0.2 0.2 - 1.0 mg/dL LAB URINALYSIS - AUTOMATED METHOD 05/05/2024 10:24 AM [facility] Bilirubin, Urine Negative Negative LAB URINALYSIS - AUTOMATED METHOD 05/05/2024 10:24 AM [facility] Blood, Urine Trace(A) Negative LAB URINALYSIS - AUTOMATED METHOD 05/05/2024 10:24 AM [facility] RBC, Urine 5.9(H) 0 - 4 /HPF LAB URINALYSIS - AUTOMATED METHOD 05/05/2024 10:24 AM [facility] WBC, Urine 1.5 0 - 4 /HPF LAB URINALYSIS - AUTOMATED METHOD 05/05/2024 10:24 AM [facility] Squamous Epithelial, Urine 35 0 - 60 /LPF LAB URINALYSIS - AUTOMATED METHOD 05/05/2024 10:24 AM [facility] Bacteria, Urine Negative Negative /HPF LAB URINALYSIS - AUTOMATED METHOD 05/05/2024 10:24 AM [facility] Hyaline Casts, Urine 0.8 0 - 3 /LPF LAB URINALYSIS - AUTOMATED METHOD 05/05/2024 10:24 AM [facility] Urine Urine specimen obtained by clean catch procedure / Unknown Non-blood Collection / Unknown 05/05/2024 9:46 AM EST 05/05/2024 10:15 AM EST Nicanor BABIN LAB URINE ORDERABLES Final R esult Performing Organization Address City/[facility]/ZIP Co de Phone Number [facility] [address] [place] [address], [place] [phone] * Barger urine culture tube (05/05/2024 9:46 AM EST) Pathologist [facility] Extra Tube Hold for add-ons. 05/05/2024 12:01 PM [facility] Comment:Auto resulted. Urine Urine specimen obtained by clean catch procedure / Unknown Non-blood Collection / Unknown 05/05/2024 9:46 AM EST 05/05/2024 10:15 AM EST Nicanor BAIBN LAB URINE ORDERABLES Final R esult [facility] [address] [place] [address], [place] [phone] * Respiratory virus panel molecular study (05/05/2024 9:26 AM EST) Adenovirus Detection by PCR Not Detected Not Detected LAB MICROBIOLOGY METHOD 05/05/2024 11:38 AM [facility] Influenza A PCR Not Detected Not Detected LAB MICROBIOLOGY METHOD 05/05/2024 11:38 AM [facility] Influenza B PCR Not Detected Not Detected LAB MICROBIOLOGY METHOD 05/05/2024 11:38 AM [facility] Coronavirus 229E Not Detected Not Detected LAB MICROBIOLOGY METHOD 05/05/2024 11:38 AM [facility] Coronavirus HKU1 Not Detected Not Detected LAB MICROBIOLOGY METHOD 05/05/2024 11:38 AM [facility] Coronavirus OC43 Not Detected Not Detected LAB MICROBIOLOGY METHOD 05/05/2024 11:38 AM [facility] Coronavirus NL63 Not Detected Not Detected LAB MICROBIOLOGY METHOD 05/05/2024 11:38 AM [facility] Parainfluenza Virus 1 Not Detected Not Detected LAB MICROBIOLOGY METHOD 05/05/2024 11:38 AM [facility] Parainfluenza Virus 2 Not Detected Not Detected LAB MICROBIOLOGY METHOD 05/05/2024 11:38 AM [facility] Parainfluenza Virus 3 Not Detected Not Detected LAB MICROBIOLOGY METHOD 05/05/2024 11:38 AM [facility] Parainfluenza Virus 4 Not Detected Not Detected LAB MICROBIOLOGY METHOD 05/05/2024 11:38 AM [facility] RSV PCR Not Detected Not Detected LAB MICROBIOLOGY METHOD 05/05/2024 11:38 AM [facility] Human Metapneumovirus A and B Not Detected Not Detected LAB MICROBIOLOGY METHOD 05/05/2024 11:38 AM [facility] Rhinovirus/Entero virus Not Detected Not Detected LAB MICROBIOLOGY METHOD 05/05/2024 11:38 AM [facility] Bordetella pertussis Not Detected Not Detected LAB MICROBIOLOGY METHOD 05/05/2024 11:38 AM [facility] Bordetella parapertussis Not Detected Not Detected LAB MICROBIOLOGY METHOD 05/05/2024 11:38 AM [facility] Mycoplasma pneumo by PCR Not Detected Not Detected LAB MICROBIOLOGY METHOD 05/05/2024 11:38 AM EST [facility] Chlamydia pneumoniae Not Detected Not Detected LAB MICROBIOLOGY METHOD 05/05/2024 11:38 AM [facility] SARS COV-2 Not Detected Not Detected LAB MICROBIOLOGY METHOD 05/05/2024 11:38 AM [facility] Swab Both anterior nares / Unknown Non-blood Collection / Unknown 05/05/2024 9:26 AM EST 05/05/2024 10:16 AM EST [facility] - 05/05/2024 11:38 AM EST Testing was performed using the Beatrobo Respiratory Pathogen PCR Assay. All results must [...] ORDERABLES Final Result [facility] [address] [place] [address], * (ABNORMAL) CBC auto differential (05/05/2024 8:07 AM EST) WBC 6.6 4.8 - 10.8 K/mcL LAB HEMETOLOGY METHOD 05/05/2024 8:48 AM [facility] RBC 5.00(H) 3.80 - 4.80 M/mcL LAB HEMETOLOGY METHOD 05/05/2024 8:48 AM [facility] Hemoglobin 14.3 11.5 - 16.0 g/dL LAB HEMETOLOGY METHOD 05/05/2024 8:48 AM [facility] Hematocrit 42.1 35.0 - 47.0 % LAB HEMETOLOGY METHOD 05/05/2024 8:48 AM [facility] MCV 84.2 79.0 - 98.0 FL LAB HEMETOLOGY METHOD 05/05/2024 8:48 AM [facility] MCH 28.6 27.0 - 32.0 pcg LAB HEMETOLOGY METHOD 05/05/2024 8:48 AM [facility] MCHC 34.0 32.0 - 37.0 g/dL LAB HEMETOLOGY METHOD 05/05/2024 8:48 AM [facility] RDW 11.9 11.0 - 15.0 % LAB HEMETOLOGY METHOD 05/05/2024 8:48 AM [facility] Platelets 192 130 - 400 K/mcL LAB HEMETOLOGY METHOD 05/05/2024 8:48 AM [facility] MPV 10.9 7.0 - 11.0 FL LAB HEMETOLOGY METHOD 05/05/2024 8:48 AM [facility] NRBC 0.0 <1.0 % LAB HEMETOLOGY METHOD 05/05/2024 8:48 AM [facility] NRBC Absolute 0.00 <0.10 K/mcL LAB HEMETOLOGY METHOD 05/05/2024 8:48 AM [facility] Neutrophils Relative 85.8 % LAB HEMETOLOGY METHOD 05/05/2024 8:48 AM [facility] Lymphocytes Relative 6.7 % LAB HEMETOLOGY METHOD 05/05/2024 8:48 AM [facility] Monocytes Relative 4.7 % LAB HEMETOLOGY METHOD 05/05/2024 8:48 AM [facility] Eosinophils Relative 1.7 % LAB HEMETOLOGY METHOD 05/05/2024 8:48 AM [facility] Basophils Relative 0.3 % LAB HEMETOLOGY METHOD 05/05/2024 8:48 AM [facility] Immature Granulocytes Relative 0.8 % LAB HEMETOLOGY METHOD 05/05/2024 8:48 AM EST [facility] Neutrophils Absolute 5.63 1.50 - 7.00 K/mcL LAB HEMETOLOGY METHOD 05/05/2024 8:48 AM EST [facility] Lymphocytes Absolute 0.44(L) 1.00 - 5.00 K/mcL LAB HEMETOLOGY METHOD 05/05/2024 8:48 AM EST [facility] Monocytes Absolute 0.31 0.20 - 1.00 K/[facility] LAB HEMETOLOGY METHOD 05/05/2024 8:48 AM EST [...] Final R esult [facility] [address] [place] [address], * (ABNORMAL) Magnesium (05/05/2024 8:07 AM EST) Magnesium 1.7(L) 1.9 - 2.6 mg/dL LAB CHEMISTRY METHOD 05/05/2024 9:14 AM EST [facility] Comment:Hemolysis present Blood Venous blood specimen / Unknown Venipuncture / Unknown 05/05/2024 8:07 AM EST 05/05/2024 8:42 AM EST Nicanor BABIN LAB BLOOD ORDERABLES Final R esult Performing Organization Address [facility]/ZIP Co de Phone Number [facility] [address] [place] [address], [place] [phone] * Lipase (05/05/2024 8:07 AM EST) Pathologist [facility] Lipase 41 13 - 75 unit/L LAB CHEMISTRY METHOD 05/05/2024 9:14 AM [facility] Blood Venous blood specimen / Unknown Venipuncture / Unknown 05/05/2024 8:07 AM EST 05/05/2024 8:42 AM EST Nicanor BABIN LAB BLOOD ORDERABLES Final R esult Performing Organization Address City/[facility]/ZIP Co de Phone Number [facility] [address] [place] [address], [place] [phone] * (ABNORMAL) Comprehensive metabolic panel (05/05/2024 8:07 AM EST) Pathologist [facility] Sodium 139 133 - 145 mmol/L LAB CHEMISTRY METHOD 05/05/2024 9:14 AM [facility] Potassium 4.1 3.5 - 5.5 mmol/L LAB CHEMISTRY METHOD 05/05/2024 9:14 AM [facility] Comment:Hemolysis present Chloride 106 96 - 110 mmol/L LAB CHEMISTRY METHOD 05/05/2024 9:14 AM [facility] CO2 26 21 - 32 mmol/L LAB CHEMISTRY METHOD 05/05/2024 9:14 AM [facility] Anion Gap 7 3 - 11 LAB CHEMISTRY METHOD 05/05/2024 9:14 AM [facility] Glucose 121(H) 70 - 100 mg/dL LAB CHEMISTRY METHOD 05/05/2024 9:14 AM [facility] BUN 13 5 - 25 mg/dL LAB CHEMISTRY METHOD 05/05/2024 9:14 AM [facility] Creatinine 0.69 0.50 - 1.10 mg/dL LAB CHEMISTRY METHOD 05/05/2024 9:14 AM [facility] eGFR 105 >=60 mL/min/1. 73m2 LAB CHEMISTRY METHOD 05/05/2024 9:14 AM [facility] Comment:Calculation based on the??Chronic Kidney Disease Epidemiology Collaboration (CKD-EPI) equation refit??without adjustment for race. BUN/Creatinine Ratio 18.8 LAB CHEMISTRY METHOD 05/05/2024 9:14 AM [facility] Calcium 9.4 8.5 - 10.5 mg/dL LAB CHEMISTRY METHOD 05/05/2024 9:14 AM [facility] AST (SGOT) 52(H) 10 - 42 unit/L LAB CHEMISTRY METHOD 05/05/2024 9:14 AM [facility] Comment:Hemolysis present ALT (SGPT) 48 10 - 60 unit/L LAB CHEMISTRY METHOD 05/05/2024 9:14 AM [facility] Alkaline Phosphatase 100 42 - 121 unit/L LAB CHEMISTRY METHOD 05/05/2024 9:14 AM [facility] Total Protein 7.2 6.0 - 8.0 g/dL LAB CHEMISTRY METHOD 05/05/2024 9:14 AM [facility] Albumin 4.1 3.2 - 5.0 g/dL LAB CHEMISTRY METHOD 05/05/2024 9:14 AM [facility] Total Bilirubin 1.0 0.0 - 1.4 mg/dL LAB CHEMISTRY METHOD 05/05/2024 9:14 AM [facility] Blood Venous blood specimen / Unknown Venipuncture / Unknown 05/05/2024 8:07 AM EST 05/05/2024 8:42 AM EST us Nicanor BABIN LAB BLOOD ORDERABLES Final R esult [facility] [address] [place] [address], [place] [phone] * GILMA SCREENING DIGITAL (11/23/2018 5:52 PM EDT) Anatomical Region Laterality Modality Mammography 11/23/2018 2:28 PM EDT Narrative 11/23/2018 5:52 PM EDT [facility] Diagnostic Imaging Department [address] [place] [address] Patient: ??LISSA WELLER ?/Age/Sex: 1970 - 48 - F Unit#: ??[id number] ? Location/Status: ??SPDIMAM/REG CLI ? Mnemonic/Ordering Site: ??DIGSC/SPMAM Ordering Physician: ??JIMI PENA SCUBA DIVER Gilma Screening Digital - 11/23/18 - 150 History: Bilateral breast cancer screening. Technique: Digital mammography. Conventional CC and MLO projections with tomosynthesis MLO views and computer aided detection. Comparison made with previous mammograms from [facility] 11/04/2016 and 2016. Findings: Breast tissue consists of a heterogenous combination of ??fatty and fibroglandular tissue, potentially obscuring small lesions, category c density. There are benign calcifications bilaterally. No suspicious group of microcalcification, suspicious mass, concerning focal asymmetry, architectural distortion or concerning change in breast density affecting either breast. Impression: ??No evidence of malignancy. BIRADS category 2; benign findings, 3342F 20130, 41951 A negative mammogram in the face of a clinically suspicious abnormality does not exclude the possibility of malignancy nor alter the indications for biopsy. Note: Patient information entered ??into a reminder system with a target due date for the next mammogram; PQRI II 7012A Dictating Physician: ??TRAVIS PALACIOS MD Electronically Signed by: ??TRAVIS PALACIOS MD Dic Date/Time: ??11/23/181750 Sign date/Time: ??11/23/181751 Procedure Note Travis Palacios - 04/27/2022 [facility] Diagnostic Imaging Department [address] [place] [address] Patient: LISSA WELLER [place] /Age/Sex: 1970 - 48 -F Unit#: [id number] Location/Status: [facility] Mnemonic/Ordering Site: [facility] Ordering Physician: JIMI PENA Gilma Screening Digital - 11/23/18 - 483 History: Bilateral breast cancer screening. Technique: Digital mammography. Conventional CC and MLO projections with tomosynthesis MLO views and computer aided detection. Comparison made with previous mammograms from [facility]11/04/2016 and 2016. Findings: Breast tissue consists of a heterogenous combination of fattyand fibroglandular tissue, potentially obscuring small lesions, category cdensity. There are benign calcifications bilaterally. No suspicious group of microcalcification, suspicious mass, concerning focal asymmetry,architectural distortion or concerning change in breast density affecting eitherbreast. Impression: No evidence of malignancy. BIRADS category 2; benign findings, 3342F 91252, 60437 A negative mammogram in the face of a clinically suspicious abnormalitydoes not exclude the possibility of malignancy nor alter the indications forbiopsy. Note: Patient information entered into a reminder system with a targetdue date for the next mammogram; PQRI II 7025F Dictating Physician: TRAVIS PALACIOS MD Electronically Signed by: TRAVIS PALACIOS MD Dic Date/Time: 11/23/181750 Sign date/Time: 11/23/181751 Nice [place] SCUBA DIVER IMG BI PROCEDURES Final Result from Last 3 Months or Most Recently Relevant to Health Maintenance Insurance [address] [address] [employer] Care Teams Counsel Relationship Specialty Start Date End Date Vladimir Rodriges MD [address] [place] [id number] PCP - General Internal Medicine 05/05/24
--- OUTSIDE RECORDS SUMMARY | 2024-06-21 08:51 | XMS_ITS | Encounter Summary ---
Author Organization [facility] Address [address] [place] [address] Care Team Providers Care Bacon Stringer Name Role Phone Vladimir Rodriges MD Primary Care Provider [phone] Reason for Visit * Reason Comments Arm Injury Encounter Details Date Type Department Care Team ([facility] st Contact Info) Description 06/14/2024 8:02 PM EST - 06/14/2024 8:57 PM EST Emergency [facility] Emergency [address] [place] [address] Acute pain of right shoulder [...] or require a referral, a follow-up doctor electronics engineering professor for the emergency department will be provided [...] make arrangements to follow up. Anita Willis [facility] [place] [facility] documented in this encounter Medications at Time [...] Means Destination Comment s Home or Self [facility] Pt provided discharge instructions, plan of care, [...] Signed Date: 06/15/2024 07:33 ET Workstation ID: [id number] Transcribed By: Self Edit Transcribed Date: 06/15/2024 [...] Signed Date: 06/15/2024 07:33 ET Workstation ID: [id number] Transcribed By: Self Edit Transcribed Date: 06/15/2024 07:32 ET us Nicol BABIN IMG XR PROCEDURES Final Re sult documented in this encounter Visit Diagnoses Diagnosis Acute pain of right shoulder- Primary documented in this encounter Care Teams Bacon Stringer Relationship Specialty Start Date End Date Vladimir Rodriges MD [address] [place] [address] PCP - General Internal Medicine 05/05/24 documented as of this encounter
[2024-06-21 09:46] LABS: MANUAL DIFF FLAG NO
[2024-06-21 10:05] LABS: Basophils Percent Auto 0.9 % (0-2); Eosinophils Absolute Auto 0.2 X10*3/uL (0.0-0.4); Hematocrit 41.4 % (37.0-47.0); Hemoglobin 13.8 g/dl (12.0-16.0); Imm Gran Abs Auto 0.03 X10*3/uL (0.00-0.03); Imm Gran Pct Auto 0.7 % (0.0-0.4); Lymphocytes Absolute Auto 1.5 X10*3/uL (1.2-4.9); Mean Corpuscular HGB Conc 33.3 g/dl (31.0-35.0); Mean Corpuscular Hemoglobin 28.4 pg (27.0-33.0); Mean Corpuscular Volume 85.2 fL (80.0-98.0); Mean Platelet Volume 10.9 fL (9.4-12.3); Monocytes Absolute Auto 0.4 X10*3/uL (0.1-1.2); Monocytes Percent Auto 9.2 % (2-11); Neutrophils Absolute Auto 2.1 x10*3/uL (2.0-8.3); Neutrophils Percent Auto 50.2 % (45-73); Platelet Count 202 X10*3/uL (160-400); Red Blood Count 4.86 X10*6/uL (4.20-5.50); Red Cell Distribution Width 12.1 % (11.0-16.0); White Blood Count 4.3 X10*3/uL (4.8-10.8)
[2024-06-21 10:39] LABS: Alanine Aminotransferase 33 U/L (0-31); Albumin Level 4.3 g/dL (3.5-5.0); Alkaline Phosphatase 88 U/L (39-117); Anion Gap 12 (12-20); Aspartate Amino Transferase 32 U/L (5-31); Bilirubin Total 0.6 mg/dL (0.0-1.0); Blood Urea Nitrogen 14 mg/dL (9-16); Calcium 9.9 mg/dL (8.4-10.2); Carbon Dioxide 26 mmol/L (22-29); Chloride 106 mmol/L (96-108); Cholesterol 229 mg/dL (<200); Estimated Glomerular Filt Rate > 60; Glucose Fasting 91 mg/dL (60-99); HDL Cholesterol 56 mg/dL (>40); LDL Cholesterol Calculated 150 mg/dL (<100); Sodium 140 mmol/L (135-145); TSH reflex Free T4 3.22 uIU/mL (0.32-4.0); Total Protein 7.4 g/dL (6.5-8.0); Triglycerides 118 mg/dL (<150)
[2024-06-26 21:18] LABS: Vitamin D 25-OH, D2 <4 ng/mL; Vitamin D 25-OH, D3 18 ng/mL; Vitamin D 25-OH, Total 18 ng/mL (30-100)
== END 2024-06-21 08:34 | disposition home or self-care (01) ==
LOC: HO.HMGCLDS 08:33
PROVIDERS: PCP Internal Medicine; Visit Provider Internal Medicine
DX: Z00.01 Encounter for general adult medical examination with abnormal findings (principal); E03.8 Other specified hypothyroidism; E66.09 Other obesity due to excess calories; Z68.32 Body mass index [BMI] 32.0-32.9, adult; R79.89 Other specified abnormal findings of blood chemistry
CPT/HCPCS: 36415; 80053; 80061; 82306; 84443; 85025

== ENCOUNTER 2024-07-11 14:40 | Outpatient (REF) | payer OTHER, SELFPAY ==
--- OUTSIDE RECORDS SUMMARY | 2024-07-11 18:06 | XMS_ITS | Clinical Summary ---
Author Organization [facility] Address [address] [place] [address] Care Team Providers Care Wirer Name Role Phone Lilliam Frazier Primary Care Provider [phone] Source Comments PLEASE NOTE, if this patient [...] rhinitis, unspecified seasonality, unspecified trigger Place 1 [place] in both nostrils once daily 16 g [...] 03/05/2017 Overview (03/05/2017): Audiology testing 01/31/17 at [facility] showed moderate loss Right ear and profound [...] Not on file Insurance [employer] [place] [id number] Care Teams Wirer Relationship Specialty Start Date End Date Lilliam Frazier PA [facility] [place] [address] PCP - General Primary Care 06/19/23
--- OUTSIDE RECORDS SUMMARY | 2024-07-11 18:06 | XMS_ITS | Encounter Summary ---
Author Organization [facility] Address [address] [place] [address] Care Team Providers Care Training Development Director Name Role Phone Vladimir Rodriges MD Primary Care Provider [phone] Reason for Visit * Reason Comments Arm Injury Encounter Details Date Type Department Care Team ([facility] st Contact Info) Description 06/14/2024 8:02 PM EST - 06/14/2024 8:57 PM EST Emergency [facility] Emergency [address] [place] [address] Acute pain of right shoulder [...] or require a referral, a follow-up doctor semiconductor wafers etch operator for the emergency department will be provided [...] make arrangements to follow up. Anita Willis [facility] [place] [facility] documented in this encounter Medications at Time of Discharge lidocaine 4 % patch Apply 1 patch topically 1 (one) time each day. 30 each 06/14/2024 5 diclofenac (VOLTAREN) 1 % topical gel Apply 2 g topically 4 (four) times a day for 7 days. 20 g 06/14/2024 5 documented as of this encounter [...] Means Destination Comment s Home or Self [facility] Pt provided discharge instructions, plan of care, [...] Signed Date: 06/15/2024 07:33 ET Workstation ID: [id number] Transcribed By: Self Edit Transcribed Date: 06/15/2024 [...] Signed Date: 06/15/2024 07:33 ET Workstation ID: [id number] Transcribed By: Self Edit Transcribed Date: 06/15/2024 07:32 ET us Nicol BABIN IMG XR PROCEDURES Final Re sult documented in this encounter Visit Diagnoses Diagnosis Acute pain of right shoulder- Primary documented in this encounter Care Teams Training Development Director Relationship Specialty Start Date End Date Vladimir Rodriges MD [address] [place] [address] PCP - General Internal Medicine 05/05/24 documented as of this encounter
--- OUTSIDE RECORDS SUMMARY | 2024-07-11 18:06 | XMS_ITS | Clinical Summary ---
Author Organization [facility] Address [address] [place] [address] Phone Care Team Providers [employer] Professor Name Role Phone Vladimir Rodriges MD Primary Care Provider [phone] Allergies Active Allergy Reactions Criticality Noted Date Comments Oxycodone-Acetaminophen Nausea And Vomiting Shellfish Derived Itching 05/05/2024 Medications lidocaine 4 % patch Apply 1 patch topically 1 (one) time each day. 30 each 5 07/15/19 25 Active diclofenac (VOLTAREN) 1 % topical gel Apply 2 g topically 4 (four) times a day for 7 days. 20 g 5 06/21/19 25 Active Problems No known active problems Encounters Date Type Department Care Team Description 06/14/2024 8:02 PM EST - 06/14/2024 8:[address] [facility] [address] [place] [phone] Acute pain of right shoulder (Primary Dx) Discharge Disposition: Home or Self Care 05/05/2024 7:51 AM EST - 05/05/2024 12:[address] [facility] [address] [place] [phone] Topher Mcmanus MD Nausea and vomiting, [...] Vaccines (1 of 2) 2022 COVID-19 Vaccine (1 - 2023-2 5 season) 2024 Influenza Vaccine [...] Signed Date: 06/15/2024 07:33 ET Workstation ID: [id number] Transcribed By: Self Edit Transcribed Date: 06/15/2024 [...] Tejas Mares Reviewed and Electronically Signed By: Tejsa Mares Signed Date: 06/15/2024 07:33 ET Workstation ID: [id number] Transcribed By: Self Edit Transcribed Date: 06/15/2024 07:32 ET us Nicol BABIN IMG XR PROCEDURES Final Re sult * (ABNORMAL) Urinalysis with reflex microscopic and culture (05/05/2024 9:46 AM EST) Specific [place] Urine 1.018 1.003 - 1.030 LAB URINALYSIS - AUTOMATED METHOD 05/05/2024 10:24 AM [facility] pH, Urine 6.5 5.0 - 8.0 pH LAB URINALYSIS - AUTOMATED METHOD 05/05/2024 10:24 AM [facility] Leukocytes, Urine Negative Negative LAB URINALYSIS - AUTOMATED METHOD 05/05/2024 10:24 AM [facility] Nitrite, Urine Negative Negative LAB URINALYSIS - AUTOMATED METHOD 05/05/2024 10:24 AM [facility] Protein, Urine Negative <=Trace mg/dL LAB URINALYSIS - AUTOMATED METHOD 05/05/2024 10:24 AM [facility] Glucose, Urine Negative Negative mg/dL LAB URINALYSIS - AUTOMATED METHOD 05/05/2024 10:24 AM [facility] Ketones, Urine Negative Negative mg/dL LAB URINALYSIS - AUTOMATED METHOD 05/05/2024 10:24 AM [facility] Urobilinogen, Urine 0.2 0.2 - 1.0 mg/dL LAB URINALYSIS - AUTOMATED METHOD 05/05/2024 10:24 AM [facility] Bilirubin, Urine Negative Negative LAB URINALYSIS - AUTOMATED METHOD 05/05/2024 10:24 AM [facility] Blood, Urine Trace(A) Negative LAB URINALYSIS - AUTOMATED METHOD 05/05/2024 10:24 AM [facility] RBC, Urine 5.9(H) 0 - 4 /HPF LAB URINALYSIS - AUTOMATED METHOD 05/05/2024 10:24 AM [facility] WBC, Urine 1.5 0 - 4 /HPF LAB URINALYSIS - AUTOMATED METHOD 05/05/2024 10:24 AM [facility] Squamous Epithelial, Urine 35 0 - 60 /LPF LAB URINALYSIS - AUTOMATED METHOD 05/05/2024 10:24 AM [facility] Bacteria, Urine Negative Negative /HPF LAB URINALYSIS - AUTOMATED METHOD 05/05/2024 10:24 AM EST [facility] Hyaline Casts, Urine 0.8 0 - 3 /LPF LAB URINALYSIS - AUTOMATED METHOD 05/05/2024 10:24 AM [facility] Urine Urine specimen obtained by clean catch procedure / Unknown Non-blood Collection / Unknown 05/05/2024 9:46 AM EST 05/05/2024 10:15 AM EST Nicanor BABIN LAB URINE ORDERABLES Final R esult [facility] [address] [place] [address], [place] [phone] * Barger urine culture tube (05/05/2024 9:46 AM EST) Pathologist [facility] Extra Tube Hold for add-ons. 05/05/2024 12:01 PM [facility] Comment:Auto resulted. Urine Urine specimen obtained by clean catch procedure / Unknown Non-blood Collection / Unknown 05/05/2024 9:46 AM EST 05/05/2024 10:15 AM EST Nicanor BABIN LAB URINE ORDERABLES Final R esult [facility] [address] [place] [address], [place] [phone] * Respiratory virus panel molecular study (05/05/2024 9:26 AM EST) Adenovirus Detection by PCR Not Detected Not Detected LAB MICROBIOLOGY METHOD 05/05/2024 11:38 AM EST [facility] Influenza A PCR Not Detected Not Detected LAB MICROBIOLOGY METHOD 05/05/2024 11:38 AM [facility] Influenza B PCR Not Detected Not Detected LAB MICROBIOLOGY METHOD 05/05/2024 11:38 AM EST [facility] Coronavirus 229E Not Detected Not Detected LAB MICROBIOLOGY METHOD 05/05/2024 11:38 AM [facility] Coronavirus HKU1 Not Detected Not Detected LAB MICROBIOLOGY METHOD 05/05/2024 11:38 AM [facility] Coronavirus OC43 Not Detected Not Detected LAB MICROBIOLOGY METHOD 05/05/2024 11:38 AM [facility] Coronavirus NL63 Not Detected Not Detected LAB MICROBIOLOGY METHOD 05/05/2024 11:38 AM [facility] Parainfluenza Virus 1 Not Detected Not Detected LAB MICROBIOLOGY METHOD 05/05/2024 11:38 AM [facility] Parainfluenza Virus 2 Not Detected Not Detected LAB MICROBIOLOGY METHOD 05/05/2024 11:38 AM [facility] Parainfluenza Virus 3 Not Detected Not Detected LAB MICROBIOLOGY METHOD 05/05/2024 11:38 AM [facility] Parainfluenza Virus 4 Not Detected Not Detected LAB MICROBIOLOGY METHOD 05/05/2024 11:38 AM [facility] RSV PCR Not Detected Not Detected LAB MICROBIOLOGY METHOD 05/05/2024 11:38 AM [facility] Human Metapneumovirus A and B Not Detected Not Detected LAB MICROBIOLOGY METHOD 05/05/2024 11:38 AM [facility] Rhinovirus/Entero virus Not Detected Not Detected LAB MICROBIOLOGY METHOD 05/05/2024 11:38 AM [facility] Bordetella pertussis Not Detected Not Detected LAB MICROBIOLOGY METHOD 05/05/2024 11:38 AM [facility] Bordetella parapertussis Not Detected Not Detected LAB MICROBIOLOGY METHOD 05/05/2024 11:38 AM [facility] Mycoplasma pneumo by PCR Not Detected Not Detected LAB MICROBIOLOGY METHOD 05/05/2024 11:38 AM [facility] Chlamydia pneumoniae Not Detected Not Detected LAB MICROBIOLOGY METHOD 05/05/2024 11:38 AM [facility] SARS COV-2 Not Detected Not Detected LAB MICROBIOLOGY METHOD 05/05/2024 11:38 AM [facility] Swab Both anterior nares / Unknown Non-blood Collection / Unknown 05/05/2024 9:26 AM EST 05/05/2024 10:16 AM EST Narrative [facility] - 05/05/2024 11:38 AM EST Testing was performed using the [employer] Respiratory Pathogen PCR Assay. All results must [...] are below the limit of detection. Mykel ABBIN LAB MICROBIOLOGY - GENERA L ORDERABLES Final Result [facility] [address] [place] [address], * (ABNORMAL) CBC auto differential (05/05/2024 8:07 AM EST) WBC 6.6 4.8 - 10.8 K/mcL LAB HEMETOLOGY METHOD 05/05/2024 8:48 AM [facility] RBC 5.00(H) 3.80 - 4.80 M/mcL LAB HEMETOLOGY METHOD 05/05/2024 8:48 AM [facility] Hemoglobin 14.3 11.5 - 16.0 g/dL LAB HEMETOLOGY METHOD 05/05/2024 8:48 AM [facility] Hematocrit 42.1 35.0 - 47.0 % LAB HEMETOLOGY METHOD 05/05/2024 8:48 AM [facility] MCV 84.2 79.0 - 98.0 FL LAB HEMETOLOGY METHOD 05/05/2024 8:48 AM [facility] MCH 28.6 27.0 - 32.0 pcg LAB HEMETOLOGY METHOD 05/05/2024 8:48 AM [facility] MCHC 34.0 32.0 - 37.0 g/dL LAB HEMETOLOGY METHOD 05/05/2024 8:48 AM [facility] RDW 11.9 11.0 - 15.0 % LAB HEMETOLOGY METHOD 05/05/2024 8:48 AM [facility] Platelets 192 130 - 400 K/mcL LAB HEMETOLOGY METHOD 05/05/2024 8:48 AM [facility] MPV 10.9 7.0 - 11.0 FL LAB HEMETOLOGY METHOD 05/05/2024 8:48 AM [facility] NRBC 0.0 <1.0 % LAB HEMETOLOGY METHOD 05/05/2024 8:48 AM [facility] NRBC Absolute 0.00 <0.10 K/mcL LAB HEMETOLOGY METHOD 05/05/2024 8:48 AM [facility] Neutrophils Relative 85.8 % LAB HEMETOLOGY METHOD 05/05/2024 8:48 AM [facility] Lymphocytes Relative 6.7 % LAB HEMETOLOGY METHOD 05/05/2024 8:48 AM [facility] Monocytes Relative 4.7 % LAB HEMETOLOGY METHOD 05/05/2024 8:48 AM [facility] Eosinophils Relative 1.7 % LAB HEMETOLOGY METHOD 05/05/2024 8:48 AM [facility] Basophils Relative 0.3 % LAB HEMETOLOGY METHOD 05/05/2024 8:48 AM [facility] Immature Granulocytes Relative 0.8 % LAB HEMETOLOGY METHOD 05/05/2024 8:48 AM [facility] Neutrophils Absolute 5.63 1.50 - 7.00 K/mcL LAB HEMETOLOGY METHOD 05/05/2024 8:48 AM EST [facility] Lymphocytes Absolute 0.44(L) 1.00 - 5.00 K/[facility] LAB HEMETOLOGY METHOD 05/05/2024 8:48 AM EST [facility] Monocytes Absolute 0.31 0.20 - 1.00 K/[facility] LAB HEMETOLOGY METHOD 05/05/2024 8:48 AM EST [facility] Eosinophils Absolute 0.11 0.00 - 0.50 K/[facility] LAB HEMETOLOGY METHOD 05/05/2024 8:48 AM EST [facility] Basophils Absolute 0.02 0.00 - 0.20 K/[facility] LAB HEMETOLOGY METHOD 05/05/2024 8:48 AM EST [facility] Immature Granulocytes Absolute 0.05(H) 0.00 - 0.03 K/[facility] LAB HEMETOLOGY METHOD 05/05/2024 8:48 AM EST [facility] Blood Venous blood specimen / Unknown Venipuncture / Unknown 05/05/2024 8:07 AM EST 05/05/2024 8:42 AM EST Nicanor BABIN LAB BLOOD ORDERABLES Final R esult [facility] [address] [place] [address], * (ABNORMAL) Magnesium (05/05/2024 8:07 AM EST) Magnesium 1.7(L) 1.9 - 2.6 mg/dL LAB CHEMISTRY METHOD 05/05/2024 9:14 AM EST [facility] Comment:Hemolysis present Blood Venous blood specimen / Unknown Venipuncture / Unknown 05/05/2024 8:07 AM EST 05/05/2024 8:42 AM EST Nicanor BABIN LAB BLOOD ORDERABLES Final R esult Performing Organization Address [facility]/ZIP Co de Phone Number [facility] [address] [place] [address], [place] [phone] * Lipase (05/05/2024 8:07 AM EST) Pathologist [facility] Lipase 41 13 - 75 unit/L LAB CHEMISTRY METHOD 05/05/2024 9:14 AM [facility] Blood Venous blood specimen / Unknown Venipuncture / Unknown 05/05/2024 8:07 AM EST 05/05/2024 8:42 AM EST Nicanor BABIN LAB BLOOD ORDERABLES Final R esult Performing Organization Address [facility] Co de Phone Number [facility] [address] [place] [address], [place] [phone] * (ABNORMAL) Comprehensive metabolic panel (05/05/2024 8:07 AM EST) [facility] Sodium 139 133 - 145 mmol/L LAB CHEMISTRY METHOD 05/05/2024 9:14 AM [facility] Potassium 4.1 3.5 - 5.5 mmol/L LAB CHEMISTRY METHOD 05/05/2024 9:14 AM [facility] Comment:Hemolysis present Chloride 106 96 - 110 mmol/L LAB CHEMISTRY METHOD 05/05/2024 9:14 AM [facility] CO2 26 21 - 32 mmol/L LAB CHEMISTRY METHOD 05/05/2024 9:14 AM [facility] Anion Gap 7 3 - 11 LAB CHEMISTRY METHOD 05/05/2024 9:14 AM [facility] Glucose 121(H) 70 - 100 mg/dL LAB CHEMISTRY METHOD 05/05/2024 9:14 AM [facility] BUN 13 5 - 25 mg/dL LAB CHEMISTRY METHOD 05/05/2024 9:14 AM [facility] Creatinine 0.69 0.50 - 1.10 mg/dL LAB CHEMISTRY METHOD 05/05/2024 9:14 AM [facility] eGFR 105 >=60 mL/min/1. 73m2 LAB CHEMISTRY METHOD 05/05/2024 9:14 AM [facility] Comment:Calculation based on the??Chronic Kidney Disease Epidemiology Collaboration (CKD-EPI) equation refit??without adjustment for race. BUN/Creatinine Ratio 18.8 LAB CHEMISTRY METHOD 05/05/2024 9:14 AM [facility] Calcium 9.4 8.5 - 10.5 mg/dL LAB CHEMISTRY METHOD 05/05/2024 9:14 AM [facility] AST (SGOT) 52(H) 10 - 42 unit/L LAB CHEMISTRY METHOD 05/05/2024 9:14 AM [facility] Comment:Hemolysis present ALT (SGPT) 48 10 - 60 unit/L LAB CHEMISTRY METHOD 05/05/2024 9:14 AM [facility] Alkaline Phosphatase 100 42 - 121 unit/L LAB CHEMISTRY METHOD 05/05/2024 9:14 AM [facility] Total Protein 7.2 6.0 - 8.0 g/dL LAB CHEMISTRY METHOD 05/05/2024 9:14 AM [facility] Albumin 4.1 3.2 - 5.0 g/dL LAB CHEMISTRY METHOD 05/05/2024 9:14 AM [facility] Total Bilirubin 1.0 0.0 - 1.4 mg/dL LAB CHEMISTRY METHOD 05/05/2024 9:14 AM [facility] Blood Venous blood specimen / Unknown Venipuncture / Unknown 05/05/2024 8:07 AM EST 05/05/2024 8:42 AM EST Nicanor BABIN LAB BLOOD ORDERABLES Final R esult [facility] [address] [place] [address], * GILMA SCREENING DIGITAL (11/23/2018 5:52 PM EDT) Anatomical Region Laterality Modality Mammography 11/23/2018 2:28 PM EDT Narrative 11/23/2018 5:52 PM EDT [facility] Diagnostic Imaging Department [address] [place] [address] Patient: ??LISSA WELLER ?/Age/Sex: 1970 - 48 - F Unit#: ??[id number] ? Location/Status: ??SPDIMAM/REG CLI ? Mnemonic/Ordering Site: ??DIGSC/SPMAM Ordering Physician: ??JIMI PENA SENIOR MANUFACTURING TECHNICIAN [facility] Screening Digital - 11/23/18 - 1507 History: Bilateral breast cancer screening. Technique: Digital mammography. Conventional CC and MLO projections with tomosynthesis MLO views and computer aided detection. Comparison made with previous mammograms from [facility] 11/04/2016 and 2016. Findings: Breast tissue consists of a heterogenous combination of ??fatty and fibroglandular tissue, potentially obscuring small lesions, category c density. There are benign calcifications bilaterally. No suspicious group of microcalcification, suspicious mass, concerning focal asymmetry, architectural distortion or concerning change in breast density affecting either breast. Impression: ??No evidence of malignancy. BIRADS category 2; benign findings, 3342F 38815, [address]22 A negative mammogram in the face of a clinically suspicious abnormality does not exclude the possibility of malignancy nor alter the indications for biopsy. Note: Patient information entered ??into a reminder system with a target due date for the next mammogram; PQRI II 7037F Dictating Physician: ??TRAVIS PALACIOS MD Electronically Signed by: ??TRAVIS PALACIOS MD Dic Date/Time: ??11/23/181750 Sign date/Time: ??11/23/181751 Procedure Note Travis Palacios - 04/27/2022 [facility] Diagnostic Imaging Department [address] [place] [address] Patient: LISSA WELLER D.O.B./Age/Sex: 1970 - 48 -F Unit#: [id number] Location/Status: [facility] Mnemonic/Ordering Site: [facility] Ordering Physician: JIMI PENA [facility] Screening Digital - 11/23/18 - 1507 History: Bilateral breast cancer screening. Technique: Digital mammography. Conventional CC and MLO projections with tomosynthesis MLO views and computer aided detection. Comparison made with previous mammograms from [facility]/04/2016 and 2016. Findings: Breast tissue consists of a heterogenous combination of fattyand fibroglandular tissue, potentially obscuring small lesions, category cdensity. There are benign calcifications bilaterally. No suspicious group of microcalcification, suspicious mass, concerning focal asymmetry,architectural distortion or concerning change in breast density affecting eitherbreast. Impression: No evidence of malignancy. BIRADS category 2; benign findings, 3342F 60017, [address]79 A negative mammogram in the face of a clinically suspicious abnormalitydoes not exclude the possibility of malignancy nor alter the indications forbiopsy. Note: Patient information entered into a reminder system with a targetdue date for the next mammogram; PQRI II 7074F Dictating Physician: TRAVIS PALACIOS MD Electronically Signed by: TRAVIS PALACIOS MD Dic Date/Time: 11/23/181750 Sign date/Time: 11/23/181751 [place] SENIOR MANUFACTURING TECHNICIAN IMG BI PROCEDURES Final Result from Last 3 Months or Most Recently Relevant to Health Maintenance Insurance [facility] Care Teams [employer] Professor Relationship Specialty Start Date End Date Vladimir Rodriges MD [address] [place] [address] PCP - General Internal Medicine 05/05/24
== END 2024-07-11 14:41 | disposition home or self-care (01) ==
LOC: HO.MAMMO 14:40
PROVIDERS: PCP Internal Medicine; Visit Provider Internal Medicine
DX: Z13.89 Encounter for screening for other disorder (principal)

== ENCOUNTER 2024-08-19 14:10 | Outpatient (AMB) | payer OTHER, SELFPAY ==
--- NOTE | 2024-08-19 14:14 | MHC.OFFVIS ---
Vital Signs 08/19/24 14:22 Height 4 ft 11 in Weight 166 lb BMI 33.5 BP 118/72 Intake Visit Reasons: New patient Annual Intake Note: Per patient last pap smear was 2018, normal history. Auto Body Service Mechanic Required: Yes Auto Body Service Mechanic Services: Auto Body Service Mechanic Present (in person) Auto Body Service Mechanic Name: ALFONZO Ambrocio Information Interpreted: non-clinical & clinical Element Burner: Element Burner Present (Yue Luz Mina MEJÍA) Accompanied by: Self / Same As Patient Allergies shellfish derived Allergy (Unknown, Verified 08/19/24 14:23) rash ibuprofen [From Motrin] Adverse Reaction (Mild, Verified 08/19/24 14:23) Palpitations oxycodone [From Percocet] Adverse Reaction (Mild, Verified 08/19/24 14:23) Hypotension Medication List - Last Reconciled 08/19/24 by Rosemary Triana CNM levothyroxine 88 mcg PO DAILY 90 days ursodiol 500 mg PO BID Is last menstrual period known: No Post menopausal: Yes Patient : No HPI HPI New patient Annual: Details: 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 She sees her primary care provider she had had a mammogram ordered in the past and when she went she had some itching on her breast and she says she was turned away from having her mammogram done that day because the person at mammography said she could have a fungus and need she needed to get cleared 1st. She has not gone back since She is postmenopausal. She had had some bleeding sometime ago x1 after not being sexually active with her because he had been away, and when he returned they became active again and there was bleeding wants and for that she had had an ultrasound. 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 She says it is well-controlled and is at stage 0. She has two children delivered by . She is overdue for a Pap smear. [facility] Medical History Primary biliary cholangitis Hypothyroidism Asthma Surgical History History of liver biopsy Hx of colonoscopy History of breast lift Hx of section Family History Unknown No family history of colorectal cancer Social History Household Members Other:: - 1 son at home Housing: House Patient Tobacco Use Status: Never used Tobacco e-Cigarette/Vaping Use: Never Used service: No Current occupational status: unemployed Cognitive needs: No Hearing needs: No Vision needs: Yes Female Reproductive History Menstrual Age of Menarche: 13 control method: none Total pregnancies: 3 Full term: 2 Ab spontaneous: 1 History of abnormal pap smear: No Date of Mammogram: 06/21/21 (bi rad 2) Physical Exam Vital Signs: Last Vital Signs BP 118/72 08/19/24 14:22 BMI result Body Mass Index 33.5 Const General: healthy appearing, comfortable, no acute distress, well developed and alert Nutritional Appearance: average body habitus Orientation/consciousness: patient oriented x3 Limitations: no limitations HEENT Head: Yes normocephalic Neck Neck: Yes normal visual inspection Chest Other: She has scars from breast lift surgery. Chest palpation & inspection: normal inspection of the chest Breast/axilla inspection: normal inspection of the breasts and normal inspection of the axillae Breast/axilla palpation: normal palpation of the breasts and normal palpation of the axillae Resp Effort & Inspection: normal respiratory effort GI Inspection: Yes normal to inspection, No Abdominal wall edema and No distended Palpation (GI): Soft to palpation and nontender Other: Vagina pink shows atrophic changes moist mucosa no abnormal discharge cervix small closed suspended high in vagina uterus small retroverted mobile nontender adnexa nontender good tone with Kegel. General: Yes bladder normal to palpation External Female Exam: normal external appearance and normal appearance of the urethra Speculum Exam - Vagina: normal appearance of the vagina, normal palpation and normal vaginal discharge Speculum Exam - Cervix: normal appearance of the cervix, normal palpation and nontender Bimanual exam- vagina & uterus: normal bimanual exam, normal palpation, uterine size normal, bladder normal to palpation, consistency normal, normal palpation, uterine mobility normal, uterine shape normal, No Cervical tenderness present, non-tender and no cervical motion tenderness Bimanual Exam- Adnexa, other: normal adnexae, no masses, normal and No adnexal tenderness Neuro General: patient oriented x3 Results Reviewed Results Reviewed: Patient: Lissa Salgado MR#: [id number] : 1970 Acct:[id number] Age/Sex: 53 / F ADM Date: 06/19/24 Loc: HO.HMGCX Attending Dr: Vladimir Rodriges MD Ordering Physician: Vladimir Rodriges MD Date of Service: 06/19/24 Procedure(s): US pelvic and transvaginal Accession Number(s): [id number] cc: Vladimir Rodriges MD~ EXAMINATION: US PELVIS TRANSABDOMINAL AND TRANSVAGINAL HISTORY: N95.0 - Postmenopausal bleeding COMPARISON: There are no prior studies for comparison. TECHNIQUE: Transabdominal and endovaginal real-time 2D crespo-scale ultrasound was performed. Endovaginal examination is limited by the uterine position. FINDINGS: Uterus: The uterus is normal in size, measuring 9.5 x 2.0 x 5.0 cm. Myometrium has a normal echotexture. No fibroids are identified. Endometrium: The endometrial stripe measures 3 mm in thickness. Right ovary: The right ovary is not identified. Left ovary: The left ovary measures 2.7 x 1.0 x 1.9 cm. The left ovary is normal in size and echotexture. Pelvic fluid: none. US/US pelvic and transvaginal IMPRESSION: The right ovary is not identified. No uterine or left ovarian abnormality is seen. Electronically signed by: Rusty Gorman MD 06/19/2024 03:05 PM [facility] Dictated By: Rusty Gorman MD Signed By: <Electronically signed by Rusty Gorman MD in OV> 06/19/24 1505 DD/ 1437 TD/TT: 06/19/24 1450 Medical Technologist Blood Bank: Assessment & Plan Assessment & Plan (1) Encounter for routine gynecological examination: Code(s): Z01.419 - Encounter for gynecological examination (general) (routine) without abnormal findings Category: Medical (2) Cervical cancer screening: Code(s): Z12.4 - Encounter for screening for malignant neoplasm of cervix Category: Medical (3) Breast cancer screening: Code(s): Z12.39 - Encounter for other screening for malignant neoplasm of breast Category: Medical Plan -----Discussed in this visit the following: healthy balanced diet, regular and consistent exercise, getting recommended health screens, doing the best she can for her particular health concerns, kegel exercises, pap smear screening and followup recommendations, mammography screening and SBE, normal changes in cycles in her life stage--- . Reviewed self-care. I went to order her mammogram but her primary care has already ordered it. Pap smear was done I did cultures just to be thorough its as it is the 1st time were seeing her. Reviewed zabrina menopausal changes discussed her assessment that the bleeding 1 time was after having sex after 2 or 3 months of not having it as it never occurred again. Reviewed that if it ever did occur again especially without a provoking event she should get checked out. We will see her in 1 year if not before for any reason. Orders: Orders Pap Smear Today Z01.419 - Encounter for gynecological examination (general) (routine) without abnormal findings Bacterial Vaginosis Panel Today Z01.419 - Encounter for gynecological examination (general) (routine) without abnormal findings CT NG by PCR Today Z01.419 - Encounter for gynecological examination (general) (routine) without abnormal findings HPV High risk Today Z01.419 - Encounter for gynecological examination (general) (routine) without abnormal findings Coding Level of Care Code New Pt Prev Care 40-64y(56295) Diagnoses Encounter for routine gynecological examination Z01.419 Cervical cancer screening Z12.4 Breast cancer screening Z12.39
[2024-08-19 14:22] VITALS: BP 118/72; BMI 33.5
--- OUTSIDE RECORDS SUMMARY | 2024-08-19 16:30 | XMS_ITS | Clinical Summary ---
Author Organization [facility] Address [address] [place] [address] Care Team Providers Care Sexual Assault Social Worker Name Role Phone Lilliam Frazier Primary Care Provider [phone] Source Comments PLEASE NOTE, if this patient [...] rhinitis, unspecified seasonality, unspecified trigger Place 1 [place] in both nostrils once daily 16 g [...] 03/05/2017 Overview (03/05/2017): Audiology testing 01/31/17 [facility] showed moderate loss Right ear and profound sensorineural hearing loss left ear - Declined CROS or BAHA Acquired hypothyroidism 10/25/2016 Obesity (BMI 30.0-34.9) 10/25/2016 Immunizations Immunization Administration Dates Next Due Hep B, Adult/Adol [...] Not on file Insurance [employer] [id number] Care Teams Sexual Assault Social Worker Relationship Specialty Start Date End Date Lilliam Frazier PA [facility] [place] [address] PCP - General Primary Care 06/19/23
--- OUTSIDE RECORDS SUMMARY | 2024-08-19 16:30 | XMS_ITS | Clinical Summary ---
Author Organization [facility] Address [address] [place] [address] Phone Care Team Providers Care Central Processing Technician Name Role Phone Vladimir Rodriges MD Primary Care Provider [phone] Allergies Active Allergy Reactions Criticality Noted Date Comments Oxycodone-Acetaminophen Nausea And Vomiting Shellfish Derived Itching 05/05/2024 Medications No known medications Active Problems No known active problems Encounters Date Type Department Care Team Description 06/14/2024 8:02 PM EST - 06/14/2024 8:57 PM EST Emergency [facility] Emergency [address] [place] [address] Acute pain of right shoulder [...] - 2023-2 5 season) 2024 Influenza Vaccine (Season Ended) 2025 Cholesterol Screening (Lipid Panel) 09/09/2025 09/09/2020, 09/09/2020, [...] age to complete this topic Meningococcal B Vaccine Aged Out No l onger eligible based on patient's age to complete [...] VIEWS RIGHT STAT 06/14/2024 8:46 PM EST [facility] SCREENING DIGITAL Routine 11/23/2018 5:52 PM EDT [...] Signed Date: 06/15/2024 07:33 ET Workstation ID: [id number] Transcribed By: Self Edit Transcribed Date: 06/15/2024 [...] Signed Date: 06/15/2024 07:33 ET Workstation ID: [id number] Transcribed By: Self Edit Transcribed Date: 06/15/2024 07:32 ET us Nicol BABIN IMG XR PROCEDURES Final Re sult * GILMA SCREENING DIGITAL (11/23/2018 5:52 PM EDT) Anatomical Region Laterality Modality Mammography 11/23/2018 2:28 PM EDT Narrative 11/23/2018 5:52 PM EDT [facility] Diagnostic Imaging Department [address] [place] [address] Patient: ??LISSA WELLER ?/Age/Sex: 1970 - 48 - F Unit#: ??[id number] ? Location/Status: ??SPDIMAM/REG CLI ? Mnemonic/Ordering Site: ??DIGSC/SPMAM Ordering Physician: ??JIMI PENA TRUCK SHOP MECHANIC [facility] Screening Digital - 11/23/18 - 1507 History: Bilateral breast cancer screening. Technique: Digital mammography. Conventional CC and MLO projections with tomosynthesis MLO views and computer aided detection. Comparison made with previous mammograms from [facility] 11/04/2016 and 2016. Findings: Breast tissue consists of a heterogenous combination of ??fatty and fibroglandular tissue, potentially obscuring small lesions, category c density. There are benign calcifications bilaterally. No suspicious group of microcalcification, suspicious mass, concerning focal asymmetry, architectural distortion or concerning change in breast density affecting either breast. Impression: ??No evidence of malignancy. BIRADS category 2; benign findings, 1082F 17719, 16761 A negative mammogram in the face of a clinically suspicious abnormality does not exclude the possibility of malignancy nor alter the indications for biopsy. Note: Patient information entered ??into a reminder system with a target due date for the next mammogram; PQRI II 7097F Dictating Physician: ??TRAVIS PALACIOS MD Electronically Signed by: ??TRAVIS PALACIOS MD Dic Date/Time: ??11/23/181750 Sign date/Time: ??11/23/181751 Procedure Note Travis Palacios - 04/27/2022 [facility] Diagnostic Imaging Department [address] [place], [place] [id number] Patient: LISSA WELLER /Age/Sex: 1970 - 48 -F Unit#: [id number] Location/Status: [facility] Mnemonic/Ordering Site: [facility] Ordering Physician: JIMI PENA [facility] Screening Digital - 11/23/18 - 1507 History: Bilateral breast cancer screening. Technique: Digital mammography. Conventional CC and MLO projections with tomosynthesis MLO views and computer aided detection. Comparison made with previous mammograms from [facility]/04/2016 and 2016. Findings: Breast tissue consists of a heterogenous combination of fattyand fibroglandular tissue, potentially obscuring small lesions, category cdensity. There are benign calcifications bilaterally. No suspicious group of microcalcification, suspicious mass, concerning focal asymmetry,architectural distortion or concerning change in breast density affecting eitherbreast. Impression: No evidence of malignancy. BIRADS category 2; benign findings, 3342F 32254, 14571 A negative mammogram in the face of a clinically suspicious abnormalitydoes not exclude the possibility of malignancy nor alter the indications forbiopsy. Note: Patient information entered into a reminder system with a targetdue date for the next mammogram; PQRI II 7010F Dictating Physician: TRAVIS PALACIOS MD Electronically Signed by: TRAVIS PALACIOS MD Dic Date/Time: 11/23/18 175 Sign date/Time: 11/23/181751 Nice [place] TRUCK SHOP MECHANIC IMG BI PROCEDURES Final Result from Last 3 Months or Most Recently Relevant to Health Maintenance Insurance [facility] Care Teams Central Processing Technician Relationship Specialty Start Date End Date Vladimir Rodriges MD [address] [place] [phone] PCP - General Internal Medicine 05/05/24
== END 2024-08-19 15:03 | disposition home or self-care (01) ==
LOC: HO.HWS 14:10
PROVIDERS: PCP Internal Medicine; Visit Provider Advanced Practice Midwife
DX: Z01.419 Encounter for gynecological examination (general) (routine) without abnormal findings (principal)
CPT/HCPCS: 99386; 99459

== ENCOUNTER 2024-08-19 14:10 | Outpatient (REF) | payer OTHER, SELFPAY ==
--- OUTSIDE RECORDS SUMMARY | 2024-08-19 17:46 | XMS_ITS | Clinical Summary ---
Author Organization [facility] Address [address] [place] [address] Phone Care Team Providers Care Hot Mill Tin Roller Name Role Phone Vladimir Rodriges MD Primary Care Provider [phone] Allergies Active Allergy Reactions Criticality Noted Date Comments Oxycodone-Acetaminophen Nausea And Vomiting Shellfish Derived Itching 05/05/2024 Medications No known medications Active Problems No known active problems Encounters Date Type Department Care Team Description 06/14/2024 8:02 PM EST - 06/14/2024 8:57 PM EST Emergency [facility] Emergency [address] [place] [address] Acute pain of right shoulder [...] VIEWS RIGHT STAT 06/14/2024 8:46 PM EST [facility] SCREENING DIGITAL Routine 11/23/2018 5:52 PM [...] Signed Date: 06/15/2024 07:33 ET Workstation ID: [id number] Transcribed By: Self Edit Transcribed Date: 06/15/2024 [...] Signed Date: 06/15/2024 07:33 ET Workstation ID: [id number] Transcribed By: Self Edit Transcribed Date: 06/15/2024 07:32 ET us Nicol BABIN IMG XR PROCEDURES Final Re sult * GILMA SCREENING DIGITAL (11/23/2018 5:52 PM EDT) Anatomical Region Laterality Modality Mammography 11/23/2018 2:28 PM EDT Narrative 11/23/2018 5:52 PM EDT [facility] Diagnostic Imaging Department [address] [place] [address] Patient: ??LISSA WELLER ?/Age/Sex: 1970 - 48 - F Unit#: ??[id number] ? Location/Status: ??SPDIMAM/REG CLI ? Mnemonic/Ordering Site: ??DIGSC/SPMAM Ordering Physician: ??JIMI PENA CARDIOLOGY TECH [facility] Screening Digital - 11/23/18 - 1507 History: Bilateral breast cancer screening. Technique: Digital mammography. Conventional CC and MLO projections with tomosynthesis MLO views and computer aided detection. Comparison made with previous mammograms from [facility] 11/04/2016 and 2016. Findings: Breast tissue consists of a heterogenous combination of ??fatty and fibroglandular tissue, potentially obscuring small lesions, category c density. There are benign calcifications bilaterally. No suspicious group of microcalcification, suspicious mass, concerning focal asymmetry, architectural distortion or concerning change in breast density affecting either breast. Impression: ??No evidence of malignancy. BIRADS category 2; benign findings, 3542F 63510, 98042 A negative mammogram in the face of a clinically suspicious abnormality does not exclude the possibility of malignancy nor alter the indications for biopsy. Note: Patient information entered ??into a reminder system with a target due date for the next mammogram; PQRI II 7065F Dictating Physician: ??TRAVIS PALACIOS MD Electronically Signed by: ??TRAVIS PALACIOS MD Dic Date/Time: ??11/23/181750 Sign date/Time: ??11/23/181751 Procedure Note Travis Palacios - 04/27/2022 [facility] Diagnostic Imaging Department [address] [place], [place] [address] Patient: LISSA WELLER /Age/Sex: 1970 - 48 -F Unit#: [id number] Location/Status: [facility] Mnemonic/Ordering Site: [facility] Ordering Physician: JIMI PENA [facility] Screening Digital - 11/23/18 - 1507 History: Bilateral breast cancer screening. Technique: Digital mammography. Conventional CC and MLO projections with tomosynthesis MLO views and computer aided detection. Comparison made with previous mammograms from [facility] and 2016. Findings: Breast tissue consists of a heterogenous combination of fattyand fibroglandular tissue, potentially obscuring small lesions, category cdensity. There are benign calcifications bilaterally. No suspicious group of microcalcification, suspicious mass, concerning focal asymmetry,architectural distortion or concerning change in breast density affecting eitherbreast. Impression: No evidence of malignancy. BIRADS category 2; benign findings, 3342F 88498, 12838 A negative mammogram in the face of a clinically suspicious abnormalitydoes not exclude the possibility of malignancy nor alter the indications forbiopsy. Note: Patient information entered into a reminder system with a targetdue date for the next mammogram; PQRI II 7095F Dictating Physician: TRAVIS PALACIOS MD Electronically Signed by: TRAVIS PALACIOS MD Dic Date/Time: 11/23/18 175 Sign date/Time: 11/23/181751 Nice [place] CARDIOLOGY TECH IMG BI PROCEDURES Final Result from Last 3 Months or Most Recently Relevant to Health Maintenance Insurance [facility] [employer] Care Teams Hot Mill Tin Roller Relationship Specialty Start Date End Date Vladimir Rodriges MD [address] [place] [phone] PCP - General Internal Medicine 05/05/24
--- OUTSIDE RECORDS SUMMARY | 2024-08-19 17:46 | XMS_ITS | Clinical Summary ---
Author Organization [facility] Address [address] [place] [address] Care Team Providers Care Sheet Metal Roofer Name Role Phone Lilliam Frazier Primary Care Provider Source Comments PLEASE NOTE, if this patient [...] rhinitis, unspecified seasonality, unspecified trigger Place 1 [place] in both nostrils once daily 16 g [...] 03/05/2017 Overview (03/05/2017): Audiology testing 01/31/[address] [facility] showed moderate loss Right ear and profound [...] Not on file Insurance [employer] [id number] Care Teams Sheet Metal Roofer Relationship Specialty Start Date End Date Lilliam Frazier PA [facility] [place] [address] PCP - General Primary Care 06/19/23
[2024-08-19 21:52] LABS: Bacterial Vaginosis PCR NEGATIVE (Negative); Candida Group PCR NOT DETECTED (Not Detect); Candida glab krusei PCR NOT DETECTED (Not Detect); Trichomonas vaginalis PCR NOT DETECTED (Not Detect)
[2024-08-19 22:31] LABS: CT PCR NOT DETECTED (Not Detect.); NG PCR NOT DETECTED (Not Detect.)
[2024-08-22 14:33] LABS: HPV Genotype 16 Negative (Negative); HPV Genotype 18 Negative (Negative); HPV High Risk Negative (Negative)
== END 2024-08-19 14:11 | disposition home or self-care (01) ==
LOC: HO.LNP 14:10
PROVIDERS: PCP Internal Medicine; Visit Provider Advanced Practice Midwife
DX: Z01.419 Encounter for gynecological examination (general) (routine) without abnormal findings (principal); Z11.3 Encounter for screening for infections with a predominantly sexual mode of transmission; Z11.51 Encounter for screening for human papillomavirus (HPV)
CPT/HCPCS: 81515; 87491; 87591; 87626; 88175; 99386; 99459

== ENCOUNTER 2024-11-07 08:28 | Outpatient (AMB) | payer OTHER, SELFPAY ==
--- OUTSIDE RECORDS SUMMARY | 2024-11-07 08:31 | XMS_ITS | Clinical Summary ---
Author Organization [facility] Address [address] [place] [address] Phone Care Team Providers Care Green Coffee Blender Name Role Phone Vladimir Rodriges MD Primary Care Provider [phone] Allergies Active Allergy Reactions Criticality Noted Date Comments Oxycodone-Acetaminophen Nausea And Vomiting Shellfish Derived Itching 05/05/2024 Medications No known medications Active Problems No known active problems Social History Tobacco Use Types Packs/Day Years [...] 75 06/14/2024 7:02 PM EST Temperature 36.2 C (97.1 F) 06/14/2024 7:02 PM EST Respiratory Rate 17 06/14/2024 7:02 PM EST [...] 2023-2 5 season) 2024 Influenza Vaccine (#1) 2025 Cholesterol Screening (Lipid Panel) 09/09/2025 09/09/2020, [...] Procedure Name Priority Date/Time Associated Diagnosis Comments GILMA SCREENING DIGITAL Routine 11/23/2018 5:52 PM EDT Encounter for screening mammogram for malignant neoplasm of breast from Last 3 Months or Most Recently Relevant to Health Maintenance Results * GILMA SCREENING DIGITAL (11/23/2018 5:52 PM EDT) Anatomical Region Laterality Modality Mammography 11/23/2018 2:28 PM EDT Narrative 11/23/2018 5:52 PM EDT [facility] Diagnostic Imaging Department [address] [place] [address] Patient: ONEIL LISSA DUARTE./Age/Sex: 1970 - 48 - F Unit#: [id number] Location/Status: SPDIMA/REG CLI Mnemonic/Ordering Site: [facility] Ordering Physician: JIMI PENA Gilma Screening Digital - 11/23/18 - 1507 History: Bilateral breast cancer screening. Technique: Digital mammography. Conventional CC and MLO projections with tomosynthesis MLO views and computer aided detection. Comparison made with previous mammograms from [facility] 11/04/2016 and 2016. Findings: Breast tissue consists of a heterogenous combination of fatty and fibroglandular tissue, potentially obscuring small lesions, category c density. There are benign calcifications bilaterally. No suspicious group of microcalcification, suspicious mass, concerning focal asymmetry, architectural distortion or concerning change in breast density affecting either breast. Impression: No evidence of malignancy. BIRADS category 2; benign findings, 3342F 98731, 08363 A negative mammogram in the face of a clinically suspicious abnormality does not exclude the possibility of malignancy nor alter the indications for biopsy. Note: Patient information entered into a reminder system with a target due date for the next mammogram; PQRI II 6750W Dictating Physician: TRAVIS PALACIOS MD Electronically Signed by: TRAVIS PALACIOS MD Dic Date/Time: 11/23/181750 Sign date/Time: 07/19/19 1752 Procedure Note Travis Palacios - 04/27/2022 [facility] Diagnostic Imaging Department [address] [place] [address] [id number] Patient: ONEIL DUARTELISSA D.O.B./Age/Sex: 1970 - 48 -F Unit#: [id number] Location/Status: [facility] CLI Mnemonic/Ordering Site: [facility] Ordering Physician: JIMI PENA Gilma Screening Digital - 11/23/18 - 1507 History: Bilateral breast cancer screening. Technique: Digital mammography. Conventional CC and MLO projections with tomosynthesis MLO views and computer aided detection. Comparison made with previous mammograms from [facility]04/2016 and 2016. Findings: Breast tissue consists of a heterogenous combination of fattyand fibroglandular tissue, potentially obscuring small lesions, category cdensity. There are benign calcifications bilaterally. No suspicious group of microcalcification, suspicious mass, concerning focal asymmetry,architectural distortion or concerning change in breast density affecting eitherbreast. Impression: No evidence of malignancy. BIRADS category 2; benign findings, 3342F 44102, 26366 A negative mammogram in the face of a clinically suspicious abnormalitydoes not exclude the possibility of malignancy nor alter the indications forbiopsy. Note: Patient information entered into a reminder system with a targetdue date for the next mammogram; PQRI II 8736M Dictating Physician: TRAVIS PALACIOS MD Electronically Signed by: TRAVIS PALACIOS MD Dic Date/Time: 11/23/18 175 Sign date/Time: 11/23/181751 Nice Berthaitaka PROMOTIONS REPRESENTATIVE IMG BI PROCEDURES Final Result from Last 3 Months or Most Recently Relevant to Health Maintenance Insurance [facility] [employer] Care Teams Green Coffee Blender Relationship Specialty Start Date End Date Vldaimir Rodriges MD [address] [place] [address] PCP - General Internal Medicine 05/05/24
--- OUTSIDE RECORDS SUMMARY | 2024-11-07 08:31 | XMS_ITS | Clinical Summary ---
Author Organization [facility] Address [address] [place] [address] Care Team Providers Care Corporate Compliance Manager Name Role Phone Lilliam Frazier Primary Care Provider [phone] Source Comments PLEASE NOTE, if this patient [...] rhinitis, unspecified seasonality, unspecified trigger Place 1 [place] in both nostrils once daily 16 g [...] 03/05/2017 Overview (03/05/2017): Audiology testing 01/31/17 at [facility] showed moderate loss Right ear [...] 88 09/09/2020 9:27 AM EDT Temperature 37.2 C (98.9 F) 09/09/2020 9:27 AM EDT Respiratory Rate 16 09/09/2020 9:27 AM EDT Oxygen Saturation 97% 09/09/2020 9:27 AM EDT Inhaled Oxygen Concentration - - Weight 71.8 kg (158 lb 4.8 oz) 09/09/2020 9:27 A M EDT Height 149.9 cm (4' 11 ) 09/09/2020 9:27 AM EDT Body Mass Index 31.97 09/09/2020 9:27 AM EDT Plan of Treatment Not on file Insurance [employer] [id number] Care Teams Corporate Compliance Manager Relationship Specialty Start Date End Date Lilliam Frazier PA [facility] [place] [address] PCP - General Primary Care 06/19/23
[2024-11-07 08:40] VITALS: BP 120/76; PULSE 88; TEMP 37; O2SAT 97; BMI 33.8
--- NOTE | 2024-11-07 08:40 | MHC.OFFWIV ---
Intake Vital Signs 11/07/24 08:40 Height 4 ft 11 in Weight 167 lb 4 oz BMI 33.8 BP 120/76 Blood Pressure Location Rt brachial Position Sitting Pulse 88 Pulse Source Pulse Oximeter Temp 98.6 F Temp Source Oral Pulse Oximetry (%) 97 Oxygen Delivery Method Room Air Intake Visit Reasons: EP Inflammation, rt side abd/rib pain Intake Note: Patient present with right sided abd/rib pain. Pain is intermitted times 4 days Patient Tobacco Use Status: Never used Tobacco Water Valve Mechanic Required: No Allergies shellfish derived Allergy (Unknown, Verified 11/07/24 08:45) rash ibuprofen (From Motrin) Adverse Reaction (Mild, Verified 11/07/24 08:45) Palpitations oxycodone (From Percocet) Adverse Reaction (Mild, Verified 11/07/24 08:45) Hypotension Do you need a note to return to daycare/school/sports/work: No HPI HPI Comments History of Present Illness Details 54 y/o Female patient who presents to the walk in clinic with multiple concerns. Pt c/o right upper abdominal pain - this is chronic on going issue currently being managed by GI. Pt c/o Headaches since yesterday, but denies vision changes, nausea or vomiting. Pt c/o Low back pain, worse with bending and lifting. Pt c/o Generalized body aches, weakness and fatigue - she believes are TSH levels are off and asking for Blood work today. She states that she is not able to see her PCP until months later and does not want to wait that long. [facility] Medical History (Updated 11/07/24 @ 09:37 by Julia Ivy NP) Acute respiratory disease Primary biliary cholangitis Hypothyroidism Asthma Surgical History History of liver biopsy Hx of colonoscopy History of breast lift Hx of section Family History Unknown No family history of colorectal cancer Social History Household Members Other:: - 1 son at home Housing: House Patient Tobacco Use Status: Never used Tobacco e-Cigarette/Vaping Use: Never Used service: No Current occupational status: unemployed Cognitive needs: No Hearing needs: No Vision needs: Yes Female Reproductive History Menstrual Age of Menarche: 13 Review of Systems Const All systems reviewed & are unremarkable except as noted in HPI and below Physical Exam Vital Signs: Last Vital Signs Temp 98.6 F 11/07/24 08:40 Pulse 88 11/07/24 08:40 BP 120/76 11/07/24 08:40 Pulse Ox 97 11/07/24 08:40 Oxygen Delivery Method Room Air 11/07/24 08:40 BMI result Body Mass Index 33.8 Const General: no acute distress Nutritional Appearance: obese Orientation/consciousness: patient oriented x3 Resp Effort & Inspection: normal respiratory effort and able to speak in complete sentences Auscultation: clear to auscultation bilaterally Cardio Heart sounds: S1 normal heart sound present and S2 normal heart sound present Neuro General: patient oriented x3 Assessment & Plan Assessment & Plan (1) Acute respiratory disease: Code(s): J06.9 - Acute upper respiratory infection, unspecified Plan: Will message PCP to order Lab work if necessary. Pt just had Physical and Lab work done 06/2024 Advised Pt to f/u with PCP for other chronic issues Advised Pt to f/u with GI for her Abdominal ongoing issues. Advised to hydrate well and take Acetaminophen for pain relief of headaches. Coding Level of Care Code Est Pt Level 4 (87700) Diagnoses Acute respiratory disease J06.9 Time Spent (min) 20
== END 2024-11-07 09:17 | disposition home or self-care (01) ==
PROVIDERS: PCP Internal Medicine; Visit Provider Nurse Practitioner Family
DX: J06.9 Acute upper respiratory infection, unspecified (principal)

== ENCOUNTER → 2024-11-07 08:28 | Outpatient (BNVA) | payer OTHER, SELFPAY | PROVIDERS: PCP Internal Medicine; Visit Provider Nurse Practitioner Family | DX: J06.9 Acute upper respiratory infection, unspecified (principal) | CPT/HCPCS: 99212 ==

== ENCOUNTER 2024-11-11 11:08 | Outpatient (AMB) | payer OTHER, SELFPAY ==
--- NOTE | 2024-11-11 11:18 | A.OFFVIS_ITS ---
Vital Signs 11/11/24 11:20 Height 4 ft 11 in Weight 163 lb 2.273 oz BMI 32.9 BP 117/69 Blood Pressure Location Lt brachial Position Sitting Pulse 80 Intake Visit Reasons: abdominal pains - reschedule Intake Note: Lissa presents in the office as a follow up for abdominal pains. CC: She said she always has intermittent pains in the stomach. She is not sure if it what she eats - she feels like red meats effect her stomach. If she eats foods with sugars or candy she gets the pains as well. She knows it might be normal because of her condition but it still worries her. She just gained some weight so that is something else as shhe is watching what she eats. Electric Meter Technician Required: Yes Allergies shellfish derived Allergy (Unknown, Verified 11/11/24 11:21) rash ibuprofen (From Motrin) Adverse Reaction (Mild, Verified 11/11/24 11:21) Palpitations oxycodone (From Percocet) Adverse Reaction (Mild, Verified 11/11/24 11:21) Hypotension HPI HPI abdominal pains - reschedule: Details: 54 yr old f with hypothyroidism here for f/u She has PBC and on bebe for few yrs Also she has been having meat intolerance, ok with chicken not with red meat she can have epigastric pain at night, not during the day going on for 1 month, or so 3 times a month denies diarrhea, not constipation no blood or melena she feels hair is coming out easier LABS: 07/02- mild AST, ALT elevation, prio high ANTON< and pos US 2021- nml liver \EXAM: GENERAL: The patient is well developed and nontoxic. VITAL SIGNS:see workflow HEENT: Nonicteric sclerae, PERRLA, EOMI. Oropharynx clear. Moist mucous membranes. Conjunctivae appear well perfused. No thyroid mass. CHEST: Chest wall is nontender. HEART: Regular rate and rhythm without murmurs. LUNGS: Clear to auscultation bilaterally. ABDOMEN: Soft, positive bowel sounds, tender epigastrium, no organomegaly.no flank tenderness SKIN: No rash, no excessive bruising, petechiae, or purpura. NEUROLOGIC: Cranial nerves II-XII intact without motor/sensory deficit. Psych: normal affect A/P: 1/ PBC 2/ Upper GI sx PLAN: 1/ Chekc h pylori 2/ cont with urosdiol 3/ EGD and US for further assessment 4/ check rast and alpha gal PFSH Medical History Acute respiratory disease Primary biliary cholangitis Hypothyroidism Asthma Surgical History History of liver biopsy Hx of colonoscopy History of breast lift Hx of section Family History Unknown No family history of colorectal cancer Social History Household Members Other:: - 1 son at home Housing: House Patient Tobacco Use Status: Never used Tobacco e-Cigarette/Vaping Use: Never Used service: No Current occupational status: unemployed Cognitive needs: No Hearing needs: No Vision needs: Yes Female Reproductive History Menstrual Age of Menarche: 13 Physical Exam Vital Signs: Last Vital Signs Pulse 80 11/11/24 11:20 BP 117/69 11/11/24 11:20 BMI result Body Mass Index 32.9 Assessment & Plan Assessment & Plan (1) Transaminitis: Comment: Repeat liver enzymes 3-4 weeks Code(s): R74.01 - Elevation of levels of liver transaminase levels Category: Medical Plan: as above (2) Chronic constipation: Comment: Bowel regimen, maintain high-fiber diet Code(s): K59.09 - Other constipation Category: Medical Plan: as above Orders: Orders Rast Allergen Today R74.01 - Elevation of levels of liver transaminase levels, Z91.018 - Allergy to other foods Complete Blood Count Auto Diff Today R74.01 - Elevation of levels of liver transaminase levels US abdomen reid w elastography Today R74.01 - Elevation of levels of liver transaminase levels Comprehensive Met. Panel Today K75.81 - Nonalcoholic steatohepatitis (CHEATHAM), R74.01 - Elevation of levels of liver transaminase levels Vitamin A Today R74.01 - Elevation of levels of liver transaminase levels Ferritin Today R74.01 - Elevation of levels of liver transaminase levels Vitamin D 25-OH Total Today R74.01 - Elevation of levels of liver transaminase levels Vitamin B12 and Folate Today R74.01 - Elevation of levels of liver transaminase levels Vitamin K1 Today R74.01 - Elevation of levels of liver transaminase levels Vitamin E Today R74.01 - Elevation of levels of liver transaminase levels Zinc Today R74.01 - Elevation of levels of liver transaminase levels H Pylori Breath Test Today Other Ref Test - Misc Today K59.09 - Other constipation, R74.01 - Elevation of levels of liver transaminase levels Coding Level of Care Code Est Pt Level 4 (00946) Diagnoses Transaminitis R74.01 Chronic constipation K59.09
[2024-11-11 11:20] VITALS: BP 117/69; PULSE 80; BMI 32.9
--- OUTSIDE RECORDS SUMMARY | 2024-11-11 12:07 | XMS_ITS | Clinical Summary ---
Author Organization [facility] Address [address] [place] [address] Phone Care Team Providers Care Row Boss Name Role Phone Vladimir Rodriges MD Primary Care Provider [phone] Allergies Active Allergy Reactions Criticality Noted Date [...] PM EDT Narrative 11/23/2018 5:52 PM EDT [facility] Diagnostic Imaging Department [address] [place] [address] Patient: ONEIL LISSA DUARTE./Age/Sex: 1970 - 48 - F Unit#: [id number] Location/Status: SPDIMA/REG CLI Mnemonic/Ordering Site: [facility] Ordering Physician: JIMI PENA Gilma Screening [...] malignancy. BIRADS category 2; benign findings, 3342F 36435, 74009 A negative mammogram in the face of a clinically suspicious abnormality does not exclude the possibility of malignancy nor alter the indications for biopsy. Note: Patient information entered into a reminder system with a target due date for the next mammogram; PQRI II 6455G Dictating Physician: TRAVIS PALACIOS MD Electronically Signed by: TRAVIS PALACIOS MD Dic Date/Time: 11/23/181750 Sign date/Time: 07/19/19 1752 Procedure Note Travis Palacios - 04/27/2022 [facility] Diagnostic Imaging Department [address] [place] [id number] Patient: ONEIL DUARTELISSA D.O.B./Age/Sex: 1970 - 48 -F Unit#: [id number] Location/Status: [facility] CLI Mnemonic/Ordering Site: [facility] Ordering Physician: JIMI PENA Gilma Screening [...] malignancy. BIRADS category 2; benign findings, 3342F 39897, 93185 A negative mammogram in the face of a clinically suspicious abnormalitydoes not exclude the possibility of malignancy nor alter the indications forbiopsy. Note: Patient information entered into a reminder system with a targetdue date for the next mammogram; PQRI II 8854A Dictating Physician: TRAVIS PALACIOS MD Electronically Signed by: TRAVIS PALACIOS MD Dic Date/Time: 11/23/18 175 Sign date/Time: 11/23/181751 Nice Berthaitaka NETEZZA ARCHITECT IMG BI PROCEDURES Final Result from Last 3 Months or Most Recently Relevant to Health Maintenance Insurance [facility] [employer] Care Teams Row Boss Relationship Specialty Start Date End Date Vladimir Rodriges MD [address] [place] [address] PCP - General Internal Medicine 05/05/24
--- OUTSIDE RECORDS SUMMARY | 2024-11-11 12:07 | XMS_ITS | Clinical Summary ---
Author Organization [facility] Address [address] [place] [address] Care Team Providers Care Switchboard Wire Worker Helper Name Role Phone Lilliam Frazier Primary Care Provider [phone] Source Comments PLEASE NOTE, if this patient [...] rhinitis, unspecified seasonality, unspecified trigger Place 1 [place] in both nostrils once daily 16 g [...] 03/05/2017 Overview (03/05/2017): Audiology testing 01/31/17 at [facility] showed moderate loss Right ear and [...] Not on file Insurance [employer] [id number] Care Teams Switchboard Wire Worker Helper Relationship Specialty Start Date End Date Lilliam Frazier PA [facility] [place] [address] PCP - General Primary Care 06/19/23
== END 2024-11-11 11:57 | disposition home or self-care (01) ==
LOC: HO.HGI 11:09
PROVIDERS: PCP Internal Medicine; Visit Provider Internal Medicine Gastroenterology
DX: R74.01 Elevation of levels of liver transaminase levels (principal); K59.09 Other constipation
CPT/HCPCS: 99214

== ENCOUNTER → 2024-11-11 11:08 | Outpatient (BNVA) | payer OTHER, SELFPAY | PROVIDERS: PCP Internal Medicine; Visit Provider Internal Medicine Gastroenterology | DX: R74.01 Elevation of levels of liver transaminase levels (principal); K59.09 Other constipation; Z91.018 Allergy to other foods; K75.81 Nonalcoholic steatohepatitis (NASH); E03.9 Hypothyroidism, unspecified | CPT/HCPCS: 99212 ==

== ENCOUNTER 2024-11-11 12:22 | Outpatient (REF) | payer OTHER, SELFPAY ==
--- OUTSIDE RECORDS SUMMARY | 2024-11-13 15:13 | XMS_ITS | Clinical Summary ---
Author Organization [facility] Address [address] [place] [address] Phone Care Team Providers Care Wheel Truing Machine Tender Name Role Phone Vladimir Rodriges MD Primary Care Provider [phone] Allergies Active Allergy Reactions Criticality Noted Date [...] Procedure Name Priority Date/Time Associated Diagnosis Comments [facility] SCREENING DIGITAL Routine 11/23/2018 5:52 PM EDT Encounter for screening mammogram for malignant neoplasm of breast from Last 3 Months or Most Recently Relevant to Health Maintenance Results * GILMA SCREENING DIGITAL (11/23/2018 5:52 PM EDT) Anatomical Region Laterality Modality Mammography 11/23/2018 2:28 PM EDT Narrative 11/23/2018 5:52 PM EDT [facility] Diagnostic Imaging Department [address] [place], [place] [id number] Patient: LISSA WELLER /Age/Sex: 1970 - 48 - F Unit#: [id number] Location/Status: SPDIMA/REG CLI Mnemonic/Ordering Site: [facility] Ordering Physician: JIMI PENA Gilma Screening Digital - 11/23/18 - 1507 History: Bilateral breast cancer screening. Technique: Digital mammography. Conventional CC and MLO projections with tomosynthesis MLO views and computer aided detection. Comparison made with previous mammograms from [facility] 11/04/2016 and 2016. Findings: Breast tissue consists of a heterogenous combination of fatty and fibroglandular tissue, potentially obscuring small lesions, category c density. There are benign calcifications bilaterally. No suspicious group of microcalcification, suspicious mass, concerning focal asymmetry, architectural distortion or concerning change in breast density affecting either breast. Impression: No evidence of malignancy. BIRADS category 2; benign findings, 3342F 25668, 79932 A negative mammogram in the face of a clinically suspicious abnormality does not exclude the possibility of malignancy nor alter the indications for biopsy. Note: Patient information entered into a reminder system with a target due date for the next mammogram; PQRI II 7052F Dictating Physician: TRAVIS PALACIOS MD Electronically Signed by: TRAVIS PALACIOS MD Dic Date/Time: 11/23/181750 Sign date/Time: 11/23/181751 Procedure Note Travis Palacios - 04/27/2022 [facility] Diagnostic Imaging Department [address] [place] [address] Patient: ONEIL DUARTELISSA./Age/Sex: 1970 - 48 -F Unit#: [id number] Location/Status: SPDIMAM/REG CLI Mnemonic/Ordering Site: [facility] Ordering Physician: JIMI PENA Gilma Screening Digital - 11/23/18 - 1507 History: Bilateral breast cancer screening. Technique: Digital mammography. Conventional CC and MLO projections with tomosynthesis MLO views and computer aided detection. Comparison made with previous mammograms from [facility]. Findings: Breast tissue consists of a heterogenous combination of fattyand fibroglandular tissue, potentially obscuring small lesions, category cdensity. There are benign calcifications bilaterally. No suspicious group of microcalcification, suspicious mass, concerning focal asymmetry,architectural distortion or concerning change in breast density affecting eitherbreast. Impression: No evidence of malignancy. BIRADS category 2; benign findings, 3342F 53356, 74811 A negative mammogram in the face of a clinically suspicious abnormalitydoes not exclude the possibility of malignancy nor alter the indications forbiopsy. Note: Patient information entered into a reminder system with a targetdue date for the next mammogram; PQRI II 0484W Dictating Physician: TRAVIS PALACIOS MD Electronically Signed by: TRAVIS PALACIOS MD Dic Date/Time: 11/23/181750 Sign date/Time: 11/23/181751 Nice Nabitaka SENIOR SYSTEMS DEVELOPER IMG BI PROCEDURES Final Result from Last 3 Months or Most Recently Relevant to Health Maintenance Insurance [facility] [place] [address] Care Teams Wheel Truing Machine Tender Relationship Specialty Start Date End Date Vladimir Rodriges MD [address] [place] [phone] PCP - General Internal Medicine 05/05/24
--- OUTSIDE RECORDS SUMMARY | 2024-11-13 15:13 | XMS_ITS | Clinical Summary ---
Author Organization [facility] Address [address] [place] [address] Care Team Providers Care Roving Hauler Name Role Phone Lilliam Frazier Primary Care Provider [phone] Source Comments PLEASE NOTE, if this patient [...] rhinitis, unspecified seasonality, unspecified trigger Place 1 [place] in both nostrils once daily 16 g [...] Overview (03/05/2017): Audiology testing 01/31/17 at [facility] showed moderate loss Right ear and profound sensorineural hearing loss left ear - Declined CROS or BAHA Acquired hypothyroidism 10/25/2016 Obesity (BMI 30.0-34.9) 10/25/2016 Immunizations Immunization Administration Dates Next Due Hep B, Adult/Adol ([id number]/RECOMBIVAX-ADULT) 05/03/2019,11/30/2018,10/31/2018 PPD 08/27/2018 TDAP 10/31/2018 Family History Medical [...] Not on file Insurance [employer] [id number] Care Teams Roving Hauler Relationship Specialty Start Date End Date Lilliam Frazier PA [address] [place] [address] PCP - General Primary Care 06/19/23
== END 2024-11-11 12:23 | disposition home or self-care (01) ==
LOC: HO.LNP 12:22
PROVIDERS: Visit Provider Internal Medicine Gastroenterology
DX: Z11.0 Encounter for screening for intestinal infectious diseases (principal)
CPT/HCPCS: 83013

== ENCOUNTER 2024-12-13 12:58 | Outpatient (AMB) | payer OTHER, SELFPAY ==
--- OUTSIDE RECORDS SUMMARY | 2024-12-13 13:02 | XMS_ITS | Clinical Summary ---
Author Organization [facility] Address [address] [place] [address] Phone Care Team Providers Care Waterworks Chief Engineer Name Role Phone Vladimir Rodriges MD Primary Care Provider [phone] Allergies Active Allergy Reactions Criticality Noted Date [...] 11/23/2020 11/23/2018 Colorectal Cancer Screening: Colonoscopy 04/09/2022 Social Influencers of Health Screening 04/09/2022 Pneumococcal Vaccine: 50+ Years (1 of 1 - PCV) 2022 Zoster Vaccines (1 of 2) 2022 COVID-19 Vaccine (1 - 2023-2 5 season) 2024 Depression Screening 05/08/2024 Influenza Vaccine (#1) 2025 Cholesterol Screening (Lipid [...] Procedure Name Priority Date/Time Associated Diagnosis Comments [facility] SCREENING DIGITAL Routine 11/23/2018 5:52 PM EDT Encounter for screening mammogram for malignant neoplasm of breast from Last 3 Months or Most Recently Relevant to Health Maintenance Results * [facility] SCREENING DIGITAL (11/23/2018 5:52 PM EDT) Anatomical Region Laterality Modality Mammography 11/23/2018 2:28 PM EDT Narrative 11/23/2018 5:52 PM EDT [facility] Diagnostic Imaging Department [address] [place], [place] [id number] Patient: LISSA WELLER /Age/Sex: 1970 - 48 - F Unit#: [id number] Location/Status: SPDIMA/REG CLI Mnemonic/Ordering Site: [facility] Ordering Physician: JMII PENA Gilma Screening Digital - 11/23/18 - 1507 History: Bilateral breast cancer screening. Technique: Digital mammography. Conventional CC and MLO projections with tomosynthesis MLO views and computer aided detection. Comparison made with previous mammograms from [facility] 11/04/2016 and 2016. Findings: Breast tissue consists of a heterogenous combination of fatty and fibroglandular tissue, potentially obscuring small lesions, category c density. There are benign calcifications bilaterally. No suspicious group of microcalcification, suspicious mass, concerning focal asymmetry, architectural distortion or concerning change in breast density affecting either breast. Impression: No evidence of malignancy. BIRADS category 2; benign findings, 3342F 71710, 80232 A negative mammogram in the face of a clinically suspicious abnormality does not exclude the possibility of malignancy nor alter the indications for biopsy. Note: Patient information entered into a reminder system with a target due date for the next mammogram; PQRI II 7063F Dictating Physician: TRAVIS PALACIOS MD Electronically Signed by: TRAVIS PALACIOS MD Dic Date/Time: 11/23/181750 Sign date/Time: 11/23/181751 Procedure Note Travis Palacios - 04/27/2022 [facility] Diagnostic Imaging Department [address] [place] [address] Patient: ONEIL DUARTELISSA./Age/Sex: 1970 - 48 -F Unit#: [id number] Location/Status: SPDIMAM/REG CLI Mnemonic/Ordering Site: [facility] Ordering Physician: JIMI PENA Gilma Screening Digital - 11/23/18 - 1507 History: Bilateral breast cancer screening. Technique: Digital mammography. Conventional CC and MLO projections with tomosynthesis MLO views and computer aided detection. Comparison made with previous mammograms from [facility]2016 and 2016. Findings: Breast tissue consists of a heterogenous combination of fattyand fibroglandular tissue, potentially obscuring small lesions, category cdensity. There are benign calcifications bilaterally. No suspicious group of microcalcification, suspicious mass, concerning focal asymmetry,architectural distortion or concerning change in breast density affecting eitherbreast. Impression: No evidence of malignancy. BIRADS category 2; benign findings, 3342F 89685, 87970 A negative mammogram in the face of a clinically suspicious abnormalitydoes not exclude the possibility of malignancy nor alter the indications forbiopsy. Note: Patient information entered into a reminder system with a targetdue date for the next mammogram; PQRI II [id number] Dictating Physician: TRAVIS PALACIOS MD Electronically Signed by: TRAVIS PALACIOS MD Dic Date/Time: 11/23/181750 Sign date/Time: 11/23/181751 [place] MOTOR VEHICLE FIELD REPRESENTATIVE IMG BI PROCEDURES Final Result from Last 3 Months or Most Recently Relevant to Health Maintenance Insurance [facility] [employer] Care Teams Waterworks Chief Engineer Relationship Specialty Start Date End Date Vladimir Rodriges MD [address] [place] [id number] PCP - General Internal Medicine 05/05/24
--- OUTSIDE RECORDS SUMMARY | 2024-12-13 13:02 | XMS_ITS | Clinical Summary ---
Author Organization [facility] Address [address] [place] [address] Care Team Providers Care Clamp Remover Name Role Phone Lilliam Frazier Primary Care Provider [phone] Source Comments PLEASE NOTE, if this patient [...] rhinitis, unspecified seasonality, unspecified trigger Place 1 [place] in both nostrils once daily 16 g [...] Overview (03/05/2017): Audiology testing 01/31/17 at [facility] showed moderate loss Right ear and profound sensorineural hearing loss left ear - Declined CROS or BAHA Acquired hypothyroidism 10/25/2016 Obesity (BMI 30.0-34.9) 10/25/2016 Immunizations Immunization Administration Dates Next Due Hep B, Adult/Adol (IRNFOUG-R-IAGNQ/RECOMBIVAX-ADULT) 05/03/2019,11/30/2018,10/31/2018 PPD 08/27/2018 TDAP 10/31/2018 Family History [...] Not on file Insurance [employer] [place] [id number] Care Teams Clamp Remover Relationship Specialty Start Date End Date Lilliam Frazier PA [address] [place] [id number] PCP - General Primary Care 06/19/23
[2024-12-13 13:04] VITALS: BP 122/82; PULSE 82; RESP 18; TEMP 36.9; O2SAT 97; BMI 33.1
--- NOTE | 2024-12-13 13:04 | MHC.PC.OV ---
Vital Signs 12/13/24 13:04 Height 4 ft 11 in Weight 164 lb BMI 33.1 BP 122/82 Blood Pressure Location Lt brachial Position Sitting Respiration 18 Pulse 82 Pulse Source Pulse Oximeter Temp 98.5 F Temp Source Oral Pulse Oximetry (%) 97 Oxygen Delivery Method Room Air Intake Visit Reasons: Follow up Allergies shellfish derived Allergy (Unknown, Verified 12/13/24 13:11) rash ibuprofen (From Motrin) Adverse Reaction (Mild, Verified 12/13/24 13:11) Palpitations oxycodone (From Percocet) Adverse Reaction (Mild, Verified 12/13/24 13:11) Hypotension Medication List - Last Reconciled 12/13/24 by Vladimir Rodriges MD levothyroxine 88 mcg PO DAILY 90 days ursodiol 500 mg PO BID Tobacco use date assessed: 12/13/24 Dental Screening Dental Screen Date: 12/13/24 Did you have a dental visit in the last 12 months?: Yes Did you have a dental problem in the last 6 months where you did not have access to dental care?: No Was dental information given to patient?: Patient has dentist HPI Follow up HPI Details Chief Complaint The patient reports vaginal itching, burning sensation following intercourse, and occasional brown spotting. History of Present Illness The patient is a 54-year-old female presenting with management of hypothyroidism and hyperlipidemia along with vaginal discomfort. Hypothyroidism: - History of thyroid hormone replacement therapy. - Previously managed on 88 mcg of levothyroxine. - Patient reports medication compliance and states previous Thyroid Stimulating Hormone (TSH) levels were stable. Hyperlipidemia: - Patient was informed of high cholesterol on the last visit. - Admits to dietary modifications and weight-loss attempts as part of management efforts. Vaginal Discomfort: - Describes persistent itching in vaginal area and burning sensation during intercourse, onset approximately one week ago. - Denies discharge but notes presence of occasional brown spotting post-urination. - No prior treatment for symptoms tried before the visit. Medical History: - Hypothyroidism - Hyperlipidemia Medications: - Levothyroxine 88 mcg daily for hypothyroidism. Diagnostic Results: - Labs: Previous lab results indicated high cholesterol. Problem List - Hypothyroidism - Hyperlipidemia - Vaginal itching and burning sensation - obesity - vitamin-D deficiency Patient Instructions - Continue taking levothyroxine as prescribed. - Start taking vitamin D once daily as recommended. - Maintain efforts in dietary modifications to manage weight and cholesterol levels. - Complete vaginal and urine samples as directed for further evaluation of symptoms. - Obtain blood tests prior to next scheduled physical exam in June. - your UA shows positive blood, I have sent antibiotic to be taken 2 times a day for 5 days Macrobid 100 mg push fluids Review of system - General: No fever no chills - Neurological: No headaches no dizziness - Ear nose throat: No sore throat no hearing difficulty no ear pain - Cardiovascular: No syncope, no chest pain, no palpitations - Gastrointestinal: No nausea vomiting or diarrhea Physical Exam General: No acute distress HEENT: No acute findings Neck: Supple Respiratory system: Able to talk in full sentences, no audible wheeze Cardiovascular: S1-S2 regular in rate and rhythm Gastrointestinal: No pain Extremities: No new findings BOTTOM BLEACHER: Alert awake oriented x3 motor sensory intact Skin: Normal turgor, PFSH Medical History Acute respiratory disease Primary biliary cholangitis Hypothyroidism Asthma Surgical History History of liver biopsy Hx of colonoscopy History of breast lift Hx of section Family History Unknown No family history of colorectal cancer Social History Household Members Other:: - 1 son at home Housing: House Patient Tobacco Use Status: Never used Tobacco e-Cigarette/Vaping Use: Never Used service: No Current occupational status: unemployed Cognitive needs: No Hearing needs: No Vision needs: Yes Female Reproductive History Menstrual Age of Menarche: 13 Questionnaire Thrive Questionnaire Date Thrive assessed: 06/09/24 I am a: Patient What is your living situation today?: I have a steady place to live Within the past 12 months, did the food you bought not last and you didn't have the money to get more?: Never true Within the past 12 months, did you worry whether your food would run out before you got money to buy more?: Never true Do you have trouble paying for medicines?: No Do you have trouble getting transportation to medical appointments?: No Do you have trouble paying your heating and electricity bill?: No Do you have trouble taking care of your child, family member or friend?: No Do you have trouble with day-to-day activities such as bathing, preparing meals, shopping, managing finances, etc.?: No Are you currently unemployed and looking for a job?: No Are you interested in more education?: No Please select the resources that you would like help with: None Currently or been in a relationship where the following occur: No concerns reported THRIVE Score: 0 AUDIT C Alcohol Use Questionnaire (AUDIT-C) 3. How often do you have six or more drinks on one occasion?: Never Total Score: 0 BETO-7 AMB Questionnaire BETO-7 Date BETO - 7 assessed: 06/12/24 Source: Developed by Drs. Rusty Reyna, Kimberley Reese, Shaw Lobo and colleagues, with an educational rita from [employer]. Physical exam (Primary Care) Vital Signs: Last Vital Signs Temp 98.5 F 12/13/24 13:04 Pulse 82 12/13/24 13:04 Resp 18 12/13/24 13:04 BP 122/82 12/13/24 13:04 Pulse Ox 97 12/13/24 13:04 Oxygen Delivery Method Room Air 12/13/24 13:04 BMI result Body Mass Index 33.1 Tobacco/Smoking Status: Tobacco use Status Tobacco use date assessed 12/13/24 12/13/24 13:14 Patient Tobacco Use Status Never used Tobacco 12/13/24 13:14 e-Cigarette/Vaping Use Never Used 12/13/24 13:14 Thrive Assessment: Date of Thrive Assessment Date Thrive assessed 06/09/24 12/13/24 13:14 Currently or been in a relationship where the following occur: No concerns reported Results AMB Urinalysis, Automated UA Leukoctes 0 Dez/uL Last Edit by ALFONZO Mccauley on 12/13/24 13:34 UA Nitrite Negative Last Edit by ALFONZO Mccauley on 12/13/24 13:34 UA Urobilinogen 0.2 mg/dL Last Edit by ALFONZO Mccauley on 12/13/24 13:34 UA Protein 0 mg/dL Last Edit by ALFONZO Mccauley on 12/13/24 13:34 UA pH 6.0 Last Edit by ALFONZO Mccauley on 12/13/24 13:34 UA Blood 80 Ras/uL Last Edit by ALFONZO Mccauley on 12/13/24 13:34 UA Specific Metaline 1.020 Last Edit by ALFONZO Mccauley on 12/13/24 13:34 UA Ketone Negative Last Edit by ALFONZO Mccauley on 12/13/24 13:34 UA Bilirubin 0 mg/dL Last Edit by EWELINA MccauleyA on 12/13/24 13:34 UA Glucose 0 mg/dL Last Edit by ALFONZO Mccauley on 12/13/24 13:34 Results Reviewed Results Reviewed: Laboratory Last Values Urine pH (Auto) 6.0 12/13/24 13:32 Specific Metaline (Auto) 1.020 12/13/24 13:32 Urine Protein (Auto) 0 mg/dL 12/13/24 13:32 Glucose (UA)(Auto) 0 mg/dL 12/13/24 13:32 Urine Ketones (Auto) Negative 12/13/24 13:32 Urine Blood (Auto) 80 Ras/uL 12/13/24 13:32 Urine Nitrite (Auto) Negative 12/13/24 13:32 Urine Bilirubin (Auto) 0 mg/dL 12/13/24 13:32 Urine Urobilinogen (Auto) 0.2 mg/dL 12/13/24 13:32 Leukocyte Esterase (Auto) 0 Dez/uL 12/13/24 13:32 Coding Level of Care Code Est Pt Level 4 (22461) Diagnoses Vaginal itching N89.8 Dysuria R30.0 Other specified hypothyroidism E03.8 LFT elevation R79.89 Class 1 obesity due to excess calories without serious comorbidity with body mass index (BMI) of 32.0 to 32.9 in adult E66.09; Z68.32 Body mass index: BMI 32.0-32.9 Obesity classification: adult class 1 (BMI 30 - 34.9) Serious obesity comorbidity presence: without serious comorbidity Vitamin D deficiency E55.9 Assessment & Plan Assessment & Plan (1) Vaginal itching: Code(s): N89.8 - Other specified noninflammatory disorders of vagina Category: Medical (2) Dysuria: Code(s): R30.0 - Dysuria Category: Medical (3) Other specified hypothyroidism: Code(s): E03.8 - Other specified hypothyroidism Category: Medical (4) LFT elevation: Code(s): R79.89 - Other specified abnormal findings of blood chemistry Category: Medical (5) Obesity due to excess calories: Comment: Under care of [facility] Code(s): E66.09 - Other obesity due to excess calories Category: Medical Qualifiers: Body mass index: BMI 32.0-32.9 Obesity classification: adult class 1 (BMI 30 - 34.9) Serious obesity comorbidity presence: without serious comorbidity Qualified Code(s): E66.09 - Other obesity due to excess calories; Z68.32 - Body mass index [BMI] 32.0-32.9, adult (6) Vitamin D deficiency: Code(s): E55.9 - Vitamin D deficiency, unspecified Category: Medical Plan Chief Complaint The patient reports vaginal itching, burning sensation following intercourse, and occasional brown spotting. History of Present Illness The patient is a 54-year-old female presenting with management of hypothyroidism and hyperlipidemia along with vaginal discomfort. Hypothyroidism: - History of thyroid hormone replacement therapy. - Previously managed on 88 mcg of levothyroxine. - Patient reports medication compliance and states previous Thyroid Stimulating Hormone (TSH) levels were stable. Hyperlipidemia: - Patient was informed of high cholesterol on the last visit. - Admits to dietary modifications and weight-loss attempts as part of management efforts. Vaginal Discomfort: - Describes persistent itching in vaginal area and burning sensation during intercourse, onset approximately one week ago. - Denies discharge but notes presence of occasional brown spotting post-urination. - No prior treatment for symptoms tried before the visit. Medical History: - Hypothyroidism - Hyperlipidemia Medications: - Levothyroxine 88 mcg daily for hypothyroidism. Diagnostic Results: - Labs: Previous lab results indicated high cholesterol. Problem List - Hypothyroidism - Hyperlipidemia - Vaginal itching and burning sensation - obesity - vitamin-D deficiency Patient Instructions - Continue taking levothyroxine as prescribed. - Start taking vitamin D once daily as recommended. - Maintain efforts in dietary modifications to manage weight and cholesterol levels. - Complete vaginal and urine samples as directed for further evaluation of symptoms. - Obtain blood tests prior to next scheduled physical exam in June. - your UA shows positive blood, I have sent antibiotic to be taken 2 times a day for 5 days Macrobid 100 mg push fluids Has appointment for physical exam in 6 months Orders: Orders Complete Blood Count Auto Diff 5 Months E03.8 - Other specified hypothyroidism, E66.09 - Other obesity due to excess calories, N89.8 - Other specified noninflammatory disorders of vagina, R30.0 - Dysuria, R79.89 - Other specified abnormal findings of blood chemistry, Z68.32 - Body mass index [BMI] 32.0-32.9, adult Vitamin D 25-OH (D2 and D3) 5 Months E03.8 - Other specified hypothyroidism, E66.09 - Other obesity due to excess calories, N89.8 - Other specified noninflammatory disorders of vagina, R30.0 - Dysuria, R79.89 - Other specified abnormal findings of blood chemistry, Z68.32 - Body mass index [BMI] 32.0-32.9, adult TSH reflex Free T4 5 Months E03.8 - Other specified hypothyroidism, E66.09 - Other obesity due to excess calories, N89.8 - Other specified noninflammatory disorders of vagina, R30.0 - Dysuria, R79.89 - Other specified abnormal findings of blood chemistry, Z68.32 - Body mass index [BMI] 32.0-32.9, adult AMB Urinalysis Automated Today Z13.9 - Encounter for screening, unspecified Urine Culture Today N89.8 - Other specified noninflammatory disorders of vagina, R30.0 - Dysuria Comprehensive Swengel. Panel Fast 5 Months E03.8 - Other specified hypothyroidism, E66.09 - Other obesity due to excess calories, N89.8 - Other specified noninflammatory disorders of vagina, R30.0 - Dysuria, R79.89 - Other specified abnormal findings of blood chemistry, Z68.32 - Body mass index [BMI] 32.0-32.9, adult Lipid Panel 5 Months E03.8 - Other specified hypothyroidism, E66.09 - Other obesity due to excess calories, N89.8 - Other specified noninflammatory disorders of vagina, R30.0 - Dysuria, R79.89 - Other specified abnormal findings of blood chemistry, Z68.32 - Body mass index [BMI] 32.0-32.9, adult Bacterial Vaginosis Panel Today N89.8 - Other specified noninflammatory disorders of vagina, R30.0 - Dysuria Medications: New nitrofurantoin monohyd/m-cryst 100 mg (Macrobid) must administer with a meal/food 100 mg PO Q12H 10 caps 0RF 5 days cholecalciferol (vitamin D3) 25 mcg PO DAILY 90 caps 1RF 90 days Refilled levothyroxine 88 mcg PO DAILY 90 tabs 1RF 90 days
== END 2024-12-13 14:40 | disposition home or self-care (01) ==
LOC: HO.HMCC 12:59
PROVIDERS: PCP Internal Medicine; Visit Provider Internal Medicine
DX: N89.8 Other specified noninflammatory disorders of vagina (principal); R30.0 Dysuria; E03.8 Other specified hypothyroidism; R79.89 Other specified abnormal findings of blood chemistry; E66.09 Other obesity due to excess calories; Z68.32 Body mass index [BMI] 32.0-32.9, adult; E55.9 Vitamin D deficiency, unspecified; Z13.9 Encounter for screening, unspecified

== ENCOUNTER 2024-12-13 12:58 | Outpatient (REF) | payer OTHER, SELFPAY ==
[2024-12-14 02:14] LABS: Bacterial Vaginosis PCR NEGATIVE (Negative); Candida Group PCR DETECTED (Not Detect); Candida glab krusei PCR NOT DETECTED (Not Detect); Trichomonas vaginalis PCR NOT DETECTED (Not Detect)
== END 2024-12-13 12:59 | disposition home or self-care (01) ==
LOC: HO.LAB 12:58
PROVIDERS: PCP Internal Medicine; Visit Provider Internal Medicine
DX: N89.8 Other specified noninflammatory disorders of vagina (principal); R30.0 Dysuria; E03.8 Other specified hypothyroidism; R79.89 Other specified abnormal findings of blood chemistry; E66.09 Other obesity due to excess calories; Z68.32 Body mass index [BMI] 32.0-32.9, adult; E55.9 Vitamin D deficiency, unspecified
CPT/HCPCS: 81003; 81515; 87086; 99212

== ENCOUNTER 2024-12-14 10:10 | Outpatient (REF) | payer OTHER, SELFPAY ==
[2024-12-14 11:44] LABS: MANUAL DIFF FLAG NO
[2024-12-14 11:59] LABS: Hematocrit 40.7 % (37.0-47.0); Hemoglobin 14.3 g/dl (12.0-16.0); Imm Gran Abs Auto 0.01 X10*3/uL (0.00-0.03); Imm Gran Pct Auto 0.3 % (0.0-0.4); Lymphocytes Absolute Auto 1.3 X10*3/uL (1.2-4.9); Mean Corpuscular HGB Conc 35.1 g/dl (31.0-35.0); Mean Corpuscular Hemoglobin 28.6 pg (27.0-33.0); Mean Corpuscular Volume 81.4 fL (80.0-98.0); NRBC Abs Auto 0.000 X10*3/uL (0.0-0.012); NRBC Pct Auto 0.0 /100WBC (0.0-0.2); Platelet Count 200 X10*3/uL (160-400); Red Blood Count 5.00 X10*6/uL (4.20-5.50); White Blood Count 3.8 X10*3/uL (4.8-10.8)
[2024-12-14 12:55] LABS: Alanine Aminotransferase 35 U/L (0-31); Albumin Level 4.6 g/dL (3.5-5.0); Alkaline Phosphatase 82 U/L (39-117); Anion Gap 13 (12-20); Aspartate Amino Transferase 37 U/L (5-31); Blood Urea Nitrogen 11 mg/dL (9-16); Calcium 9.8 mg/dL (8.4-10.2); Carbon Dioxide 25 mmol/L (22-29); Chloride 106 mmol/L (96-108); Cholesterol 247 mg/dL (<200); Estimated Glomerular Filt Rate > 60; HDL Cholesterol 52 mg/dL (>40); Potassium 3.8 mmol/L (3.3-5.1); Sodium 140 mmol/L (135-145); Total Protein 7.2 g/dL (6.5-8.0); Triglycerides 185 mg/dL (<150)
[2024-12-14 12:57] LABS: Ferritin 119 ng/mL (10-250)
[2024-12-14 13:07] LABS: Folate 7.2 ng/mL (> or = 4.0); Vitamin B12 283 pg/mL (200-900)
[2024-12-23 12:33] LABS: Vitamin D 25-OH, D2 <4 ng/mL; Vitamin D 25-OH, D3 24 ng/mL; Vitamin D 25-OH, Total 24 ng/mL (30-100)
== END 2024-12-14 10:11 | disposition home or self-care (01) ==
LOC: HO.HMGCLDS 10:10
PROVIDERS: PCP Internal Medicine; Referring Provider Internal Medicine Gastroenterology; Visit Provider Internal Medicine
DX: K75.81 Nonalcoholic steatohepatitis (NASH) (principal); E66.09 Other obesity due to excess calories; N89.8 Other specified noninflammatory disorders of vagina; R30.0 Dysuria; E03.8 Other specified hypothyroidism; R79.89 Other specified abnormal findings of blood chemistry; Z68.32 Body mass index [BMI] 32.0-32.9, adult; R74.01 Elevation of levels of liver transaminase levels
CPT/HCPCS: 36415; 80053; 80061; 82306; 82607; 82728; 82746; 84443; 84590; 84630; 85025

== ENCOUNTER 2024-12-20 09:17 | Outpatient (AMB) | payer OTHER, SELFPAY ==
[2024-12-20 09:22] VITALS: BP 104/72; PULSE 67; TEMP 36.7; O2SAT 97; BMI 33.1
--- NOTE | 2024-12-20 09:22 | AM.OFFWIN_ITS ---
Intake Vital Signs 12/20/24 09:22 Height 4 ft 11 in Weight 164 lb BMI 33.1 BP 104/72 Blood Pressure Location Lt brachial Position Sitting Pulse 67 Pulse Source Pulse Oximeter Temp 98.0 F Temp Source Oral Pulse Oximetry (%) 97 Oxygen Delivery Method Room Air Intake Visit Reasons: EP Insect bite Intake Note: presents with itchy and red area to left breast Patient Tobacco Use Status: Never used Tobacco Allergies shellfish derived Allergy (Unknown, Verified 12/20/24 09:26) rash ibuprofen (From Motrin) Adverse Reaction (Mild, Verified 12/20/24 09:26) Palpitations oxycodone (From Percocet) Adverse Reaction (Mild, Verified 12/20/24 09:26) Hypotension Do you need a note to return to daycare/school/sports/work: No HPI HPI Comments History of Present Illness Details This is a 54-year-old female presenting for evaluation of an insect bite. Patient states yesterday she was bit by an unseen insect on her left breast. When taking a bath last night patient noticed itching to her left breast with localized redness. She denies having any fevers, chills or worsening of the redness this morning. She has not taken any medication or used any topical agents for her itching sensation. [facility] Medical History Acute respiratory disease Primary biliary cholangitis Hypothyroidism Asthma Surgical History History of liver biopsy Hx of colonoscopy History of breast lift Hx of section Family History Unknown No family history of colorectal cancer Social History Household Members Other:: - 1 son at home Housing: House Patient Tobacco Use Status: Never used Tobacco e-Cigarette/Vaping Use: Never Used service: No Current occupational status: unemployed Cognitive needs: No Hearing needs: No Vision needs: Yes Female Reproductive History Menstrual Age of Menarche: 13 Review of Systems Const All systems reviewed & are unremarkable except as noted in HPI and below Reports as per HPI, Denies body aches, Denies chills and Denies fever(s) Musc Reports no additional complaints Skin/Breast Reports system reviewed and no additional complaints, except as documented, Reports breast skin changes, Denies breast pain, Reports pruritus and Reports erythema Neuro Reports no additional complaints Psych Reports no additional complaints Physical Exam Vital Signs: Last Vital Signs Temp 98.0 F 12/20/24 09:22 Pulse 67 12/20/24 09:22 BP 104/72 12/20/24 09:22 Pulse Ox 97 12/20/24 09:22 Oxygen Delivery Method Room Air 12/20/24 09:22 BMI result Body Mass Index 33.1 Const General: cooperative, healthy appearing, comfortable, no acute distress, well developed, alert, awake and Physically active; No acute distress Nutritional Appearance: overweight Orientation/consciousness: patient oriented x3 Limitations: no limitations Skin Other: there is a 2cm x 3cm area of macular erythema with irregular borders on the medial aspect of the left areola that is not warm or tender to touch; no induration, fluctuance or retained foreign body noted Neuro General: patient oriented x3 Psych Appearance: grossly normal Mental Status: mental status grossly normal Insight: Good insight present (Psych) Judgement: Good judgement present (Psych) Assessment & Plan Assessment & Plan (1) Insect bite (nonvenomous) of breast, left breast, initial encounter: Comment: Currently there is no clinical evidence of an acute cellulitis, however the borders of this lesion are marked with a surgical marker. She is afebrile and well-appearing. Patient will use hydrocortisone cream or topical anti-itch cream for her symptoms and monitor any spreading of the erythema. Code(s): S20.162A - Insect bite (nonvenomous) of breast, left breast, initial encounter; W57.XXXA - Bitten or stung by nonvenomous insect and other nonvenomous arthropo ds, initial encounter Plan: Topical hydrocortisone cream as needed and patient will follow up for any worsening of the redness on her left breast. Coding Level of Care Code Est Pt Level 3 (96061) Diagnoses Insect bite (nonvenomous) of breast, left breast, initial encounter S20.162A; W57.XXXA Time Spent (min) 20
--- OUTSIDE RECORDS SUMMARY | 2024-12-20 09:31 | XMS_ITS | Encounter Summary ---
Author Organization [facility] Address [address] [place] [address] Phone Care Team Providers Care Roll Capper Name Role Phone Vladimir Rodriges MD Primary Care Provider [phone] Encounter Details Date Type Department Care Team (Late st Contact Info) Description 03/29/2022 Procedure Pass Interventional Radiology, [facility] - [address], [address] [place] [address] Social History Tobacco Use Types Packs/Day Years Used Date Smoking Tobacco: Never Assessed Comments Unknown Sex and Gender Information Value Date Recorded Sex Assigned at Female 12/31/2021 3:51 PM EDT Legal Sex Female 3:43 PM EDT Gender Identity Female 12/31/2021 3:51 PM EDT Sexual Orientation Straight 12/31/2021 3: 51 PM EDT documented as of this encounter Plan of Treatment Not on file documented as of this encounter Visit Diagnoses Not on filedocumented in this encounter Care Teams Roll Capper Relationship Specialty Start Date End Date Vladimir Rodriges MD [address] [facility] [place] [address] PCP - General Internal Medicine 12/31/21 documented as of this encounter Additional Source Comments The information contained in this document represents components of the legal health record. It is not the complete legal health record.[facility]
== END 2024-12-20 09:48 | disposition home or self-care (01) ==
PROVIDERS: PCP Internal Medicine; Visit Provider Physician Assistant
DX: S20.162A Insect bite (nonvenomous) of breast, left breast, initial encounter (principal); W57.XXXA Bitten or stung by nonvenomous insect and other nonvenomous arthropods, initial encounter

== ENCOUNTER 2024-12-20 09:17 | Outpatient (REF) | payer OTHER, SELFPAY ==
--- OUTSIDE RECORDS SUMMARY | 2024-12-20 10:28 | XMS_ITS | Clinical Summary ---
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
[2024-12-24 03:03] LABS: Class Almond 0; Class Brazil Nut 0; Class Cashew 0; Class Codfish 0; Class Cow's Milk 0; Class Egg white 0; Class Hazelnut 0; Class Macadamia Nut 0; Class Peanut 0; Class Salmon 0; Class Scallop 0; Class Sesame Seed 0; Class Shrimp 0; Class Soybean 0; Class Tuna 0; Class Walnut 0; Class Wheat 0; F345-IgE Macadmia Nut <0.10 kU/L
[2024-12-26 19:18] LABS: Allergen, Galactose-Alpha 1,3 0.19 kU/L (<0.10)
== END 2024-12-20 09:18 | disposition home or self-care (01) ==
LOC: HO.LAB 09:17
PROVIDERS: PCP Internal Medicine; Visit Provider Internal Medicine Gastroenterology
DX: S20.162A Insect bite (nonvenomous) of breast, left breast, initial encounter (principal); D64.0 Hereditary sideroblastic anemia; K59.09 Other constipation; R79.89 Other specified abnormal findings of blood chemistry; R74.01 Elevation of levels of liver transaminase levels; W57.XXXA Bitten or stung by nonvenomous insect and other nonvenomous arthropods, initial encounter
CPT/HCPCS: 36415; 84446; 84597; 86003; 86008; 99212

== ENCOUNTER 2025-01-13 09:27 | Outpatient (REF) | payer OTHER, SELFPAY ==
--- NOTE | ~2025-01-13 | US_ITS ---
EXAMINATION: US ABDOMEN LIMITED WITH LIVER ELASTOGRAPHY HISTORY: R74.01 - Elevation of levels of liver transaminase levels TECHNIQUE: Real-time grayscale ultrasound imaging of the right upper quadrant was performed and images were reviewed. COMPARISON: Comparison is made with the prior examination dated 11/03/2021. FINDINGS: Liver: The right lobe of the liver measures 12.6 cm in size. The left lobe of the liver measures 7.9 cm in size. The liver demonstrates increased echotexture, consistent with steatosis. No focal mass or intrahepatic biliary ductal dilatation is identified. There is normal hepatopedal flow in the portal vein. Ultrasound elastography of the liver was performed with 10 separate measurements of the liver parenchyma with the patient in the supine position. Measurements were obtained approximately 2 cm below Carlos's capsule and perpendicular to the capsule. The median shear wave velocity is 1.37 m/s. The interquartile range/median (IQR/median) is 0.09. Gallbladder and biliary tree: The gallbladder is unremarkable, without evidence of calculi, wall thickening, or pericholecystic fluid. There is no sonographic Padilla sign. The common bile duct is normal in caliber measuring 3 mm. Right Kidney: The right kidney measures 10.1 cm in length and demonstrates a 1.2 x 1.5 x 1.3 cm septated cyst at the lower pole. The right kidney is otherwise unremarkable, without evidence of solid masses, hydronephrosis, or calculi. Pancreas: The pancreatic head, neck, and body are unremarkable. The pancreatic tail is obscured by bowel gas. There is no free fluid in the right upper quadrant. US/US abdomen reid w elastography IMPRESSION: Hepatic steatosis. The median shear wave velocity in the liver is 1.37 m/s, corresponding to a median liver stiffness of 5.68 kPa. The IQR/median value is 0.09. This is indicative of a quality data set. Findings are indicative of a low elastography value which rules out advanced chronic liver disease in asymptomatic patients. REFERENCE: Society of Radiologists in Ultrasound Liver Stiffness Thresholds (2020): LIVER STIFFNESS THRESHOLDS: *Shear wave velocity less than 1.3 m/s (Liver Stiffness equal or less than 5 kPa): High probability of being normal. *Shear wave velocity less than 1.7 m/s (Liver Stiffness less than 9 kPa): In the absence of other known clinical signs, rules out compensated advanced chronic liver disease. *Shear wave velocity between 1.7-2.1 m/s (Liver Stiffness 9-13 kPa): Suggestive of compensated advanced chronic liver disease but need further test for confirmation. *Shear wave velocity between 2.1-2.4 m/s (Liver Stiffness 13-17 kPa): Rules in compensated advanced chronic liver disease. *Shear wave velocity greater than 2.4 m/s (Liver Stiffness over 17 kPa): Suggestive of clinically significant portal hypertension. QUALITY OF DATA SET: *IQR/Median value equal or less than 0.15 implies a quality data set. *IQR/Median value over 0.15 implies a poor quality data set. SIGNIFICANT CHANGE FROM PRIOR EXAM: Significant change if liver stiffness measurement is 10% or greater from prior exam. OTHER CONSIDERATIONS: The stage of liver fibrosis may be overestimated in the setting of acute hepatitis, liver inflammation, elevated liver function tests, hepatic vascular congestion, obstructive cholestasis, non-fasting state, and infiltrative diseases such as amyloidosis and lymphoma. In some patients with NAFLD, the liver stiffness thresholds for compensated advanced chronic liver disease may be lower. In causes other than viral hepatitis and NAFLD, liver stiffness thresholds are not well established. Electronically signed by: Rusty Gorman MD 01/13/2025 10:06 AM EDT
--- OUTSIDE RECORDS SUMMARY | 2025-01-13 10:41 | XMS_ITS | Clinical Summary ---
Author Organization [facility] Address [address] [place] [address] Phone Care Team Providers Care Sugar Drier Name Role Phone Vladimir Rodriges MD Primary Care Provider Allergies Active Allergy Reactions Criticality Noted Date [...] 2022 Zoster Vaccines (1 of 2) 2022 Depression Screening 05/08/2024 COVID-19 Vaccine (1 - 2023-2 5 season) 2025 Influenza Vaccine (#1) 2025 Cholesterol Screening (Lipid [...] Procedure Name Priority Date/Time Associated Diagnosis Comments [facility] SCREENING DIGITAL Routine 11/23/2018 5:52 PM EDT Encounter for screening mammogram for malignant neoplasm of breast from Last 3 Months or Most Recently Relevant to Health Maintenance Results * [facility] SCREENING DIGITAL (11/23/2018 5:52 PM EDT) Anatomical Region Laterality Modality Mammography 11/23/2018 2:28 PM EDT Narrative 11/23/2018 5:52 PM EDT [facility] Diagnostic Imaging Department [address] [place], [place] [id number] Patient: LISSA WELLER /Age/Sex: 1970 - 48 - F Unit#: [id number] Location/Status: SPDIMA/REG CLI Mnemonic/Ordering Site: [facility] Ordering Physician: JIMI PENA Gilma Screening Digital - 11/23/18 - 1507 History: Bilateral breast cancer screening. Technique: Digital mammography. Conventional CC and MLO projections with tomosynthesis MLO views and computer aided detection. Comparison made with previous mammograms from [facility] 11/04/2016 and 2016. Findings: Breast tissue consists of a heterogenous combination of fatty and fibroglandular tissue, potentially obscuring small lesions, category c density. There are benign calcifications bilaterally. No suspicious group of microcalcification, suspicious mass, concerning focal asymmetry, architectural distortion or concerning change in breast density affecting either breast. Impression: No evidence of malignancy. BIRADS category 2; benign findings, 3342F 35496, [address]1057 A negative mammogram in the face of a clinically suspicious abnormality does not exclude the possibility of malignancy nor alter the indications for biopsy. Note: Patient information entered into a reminder system with a target due date for the next mammogram; PQRI II 7009F Dictating Physician: TRAVIS PALACIOS MD Electronically Signed by: TRAVIS PALACIOS MD Dic Date/Time: 11/23/181750 Sign date/Time: 11/23/181751 Procedure Note Travis Palacios - 04/27/2022 [facility] Diagnostic Imaging Department [address] [place] [address] Patient: ONEIL DUARTELISSA./Age/Sex: 1970 - 48 -F Unit#: [id number] Location/Status: SPDIMAM/REG CLI Mnemonic/Ordering Site: [facility] Ordering Physician: JIMI PENA Gilma Screening Digital - 11/23/18 - 1507 History: Bilateral breast cancer screening. Technique: Digital mammography. Conventional CC and MLO projections with tomosynthesis MLO views and computer aided detection. Comparison made with previous mammograms from [facility]2016 and 2016. Findings: Breast tissue consists of a heterogenous combination of fattyand fibroglandular tissue, potentially obscuring small lesions, category cdensity. There are benign calcifications bilaterally. No suspicious group of microcalcification, suspicious mass, concerning focal asymmetry,architectural distortion or concerning change in breast density affecting eitherbreast. Impression: No evidence of malignancy. BIRADS category 2; benign findings, 3342F 12731, 44045 A negative mammogram in the face of a clinically suspicious abnormalitydoes not exclude the possibility of malignancy nor alter the indications forbiopsy. Note: Patient information entered into a reminder system with a targetdue date for the next mammogram; PQRI II 1269X Dictating Physician: TRAVIS PALACIOS MD Electronically Signed by: TRAVIS PALACIOS MD Dic Date/Time: 11/23/181750 Sign date/Time: 11/23/181751 [place] MANAGER PROCESS IMG BI PROCEDURES Final Result from Last 3 Months or Most Recently Relevant to Health Maintenance Insurance [facility] [employer] Care Teams Sugar Drier Relationship Specialty Start Date End Date Vladimir Rodriges MD [address] [place] [id number] PCP - General Internal Medicine 05/05/24
--- OUTSIDE RECORDS SUMMARY | 2025-01-13 10:41 | XMS_ITS | Clinical Summary ---
Author Organization [facility] Address [address] [place] [id number] Phone Care Team Providers Care Shot Polisher And Inspector Name Role Phone Vladimir Rodriges MD Primary Care Provider [phone] Allergies Active Allergy Reactions Criticality Noted Date Comments Oxycodone-Acetaminophe n Other (See Comments) 10/24/2016 Other reaction(s): Other (See Comments) Lower BP- per pt lowers BP Lower BP- per pt Shellfish Containing Products 03/29/2022 Medications levothyroxine (SYNTHROID, LEVOTHROID) 88 MCG tablet Take 88 mcg by mouth daily. 03/12/2022 Active ursodioL (ACTIGALL) 500 MG tablet Take 250 mg by mouth daily. 02/24/2022 Active zinc sulfate (ZINCATE) 50 mg zinc (220 mg) capsule Take 50 mg by mouth daily. Active Active Problems No known active problems Social History Tobacco Use Types Packs/Day Years Used Date Smoking Tobacco: Never Assessed Education Answer Date Recorded Are you interested in more education? Not on yenny e 09/03/2022 Are you concerned about learning? Not on file 09/03/2022 No 09/03/2022 No 09/03/2022 Digital Access Answer Date Recorded No 10/01/2022 No 10/01/2022 No 10/01/2022 Reliable internet access at home? Not on file 10/01/2022 Device with a working camera? Not on file Intimate Partner Violence Answer Date R ecorded Are you denied basic needs s uch as food, clothing, or medical care? No 05/03/2022 In the past 12 months have y ou been in a relationship with a person who hurts, threatens, or tries to control you? No 05/03/2022 Are you denied basic needs s uch as food, clothing, or medical care? No 05/03/2022 In the past 12 months have y ou been in a relationship with a person who hurts, threatens, or tries to control you? No 05/03/2022 Comments Unknown Sex and Gender Information Value Date Recorded Sex Assigned at Female 12/31/2021 3:51 PM EDT Legal Sex Female 3:43 PM EDT Gender Identity Female 12/31/2021 3:51 PM EDT Sexual Orientation Straight 12/31/2021 3: 51 PM EDT Last Filed Vital Signs Vital Sign Reading Time Taken Comments Blood Pressure 138/76 05/03/2022 2:10 PM EST Pulse 60 05/03/2022 2:15 PM EST Temperature 36.8 C (98.2 F) 05/03/2022 1:00 PM EST Respiratory Rate 16 05/03/2022 1:55 PM EST Oxygen Saturation 100% 05/03/2022 2:15 PM EST Inhaled Oxygen Concentration - - Weight 71.7 kg (158 lb) 03/29/2022 11:28 AM EST Height - - Body Mass Index - - Plan of Treatment Health Maintenance Due Date Last Done Comments DEPRESSION SCREENING 1984 SMOKING Hx and SMOKELESS TOBACCO SCREENING 1985 HIV ONE-TIME SCREENING (18-65 YEARS) 1990 PAP SMEAR 1993 MAMMOGRAM 2012 COLOGUARD 2017 COLONOSCOPY 2017 COLORECTAL CANCER SCREENING 2017 FIT TEST 2017 FOBT 2017 SIGMOIDOSCOPY 2017 VIRTUAL COLONOSCOPY 2017 TSH LEVEL 09/09/2021 09/09/2020, 10/08, 06/10/2019, Additional history exists PNEUMOCOCCAL VACCINES (50+ years) (1 of 1 - PCV) 2022 ZOSTER VACCINES (1 of 2) 2022 INFLUENZA VACCINE (#1) 2024 COVID-19 VACCINE (1 - season) 2025 LIPID PANEL 09/09/2025 09/09/2020 Adult Td,Tdap Booster 10/31/2028 10/31/2018 HEPATITIS C SCREENING Completed 03/29/2022 HEPATITIS A VACCINES Aged Out No long er eligible based on patient's age to complete this topic HIB VACCINES Aged Out No longer eligi ble based on patient's age to complete this topic MENINGOCOCCAL VACCINES (ACWY) Aged Out No longer eligible based on patient's age to complete this topic MENINGOCOCCAL VACCINES (B) Aged Out N o longer eligible based on patient's age to complete this topic Medical Devices Not on file Procedures Procedure Name Priority Date/Time Associated Diagnosis Comments HEPATITIS C ANTIBODY, QUALITATIVE Routine 03/29/2022 12:52 PM EST Need for hepatitis C screening test from Last 3 Months or Most Recently Relevant to Health Maintenance Results * Hepatitis C antibody, qualitative (03/29/2022 12:52 PM EST) HCV ANTIBODY Negative Negative [facility] Comment:Antibodies to HCV no t detected. Does not exclude the possibility of exposure to HCV. 03/29/2022 12:5 2 PM EST 03/29/2022 2:49 PM EST us Tom Hoffmann MD, MPH LAB BLOOD ORDERABLES Final Result [address] [id number] from Last 3 Months or Most Recently Relevant to Health Maintenance Insurance [employer] P[employer] C[employer] Care Teams Shot Polisher And Inspector Relationship Specialty Start Date End Date Vladimir Rodriges MD [address] [facility] [place] [address] PCP - General Internal Medicine 12/31/21 Additional Source Comments The information contained in this document represents components of the legal health record. It is not the complete legal health record.[facility]
--- OUTSIDE RECORDS SUMMARY | 2025-01-13 10:41 | XMS_ITS | Encounter Summary ---
Author Organization [facility] Address [address] [place] [address] Phone Care Team Providers Care Account Development Associate Name Role Phone Vladimir Rodriges MD Primary Care Provider [phone] Encounter Details Date Type Department Care Team (Late st Contact Info) Description 03/29/2022 Procedure Pass Interventional Radiology, [facility] - [address], [address] [place] [address] Social History Tobacco Use Types Packs/Day Years [...] on filedocumented in this encounter Care Teams Account Development Associate Relationship Specialty Start Date End Date Vladimir Rodriges MD [address] [facility] [place] [address] PCP - General Internal Medicine 12/31/21 documented as of this encounter Additional Source Comments The information contained in this document represents components of the legal health record. It is not the complete legal health record.[facility]
--- OUTSIDE RECORDS SUMMARY | 2025-01-13 10:41 | XMS_ITS | Clinical Summary ---
Author Organization [facility] Address [address] [place] [address] Care Team Prov[address] Care Court Liaison Name Role Phone Lilliam Frazier Primary Care Provider [phone] Source Comments PLEASE NOTE, if this patient [...] rhinitis, unspecified seasonality, unspecified trigger Place 1 [place] in both nostrils once daily 16 g [...] Overview (03/05/2017): Audiology testing 01/31/17 at [facility] showed moderate loss Right ear and profound sensorineural hearing loss left ear - Declined CROS or BAHA Acquired hypothyroidism 10/25/2016 Obesity (BMI 30.0-34.9) 10/25/2016 Immunizations Immunization Administration Dates Next Due Hep B, Adult/Adol ([id number]/RECOMBIVAX-ADULT) 05/03/2019,11/30/2018,10/31/2018 PPD 08/27/2018 TDAP 10/31/2018 Family History [...] Not on file Insurance [employer] [id number] Liaison Relationship Specialty Start Date End Date Lilliam Frazier PA [address] [place] [id number] PCP - General Primary Care 06/19/23
== END 2025-01-13 09:28 | disposition home or self-care (01) ==
LOC: HO.US 09:27
PROVIDERS: PCP Internal Medicine; Visit Provider Internal Medicine Gastroenterology
DX: R74.01 Elevation of levels of liver transaminase levels (principal)
CPT/HCPCS: 76705; 76981

== ENCOUNTER → 2025-01-13 09:29 | Outpatient (BNV) | payer OTHER, SELFPAY | PROVIDERS: PCP Internal Medicine; Visit Provider Radiology Diagnostic Radiology | DX: K76.0 Fatty (change of) liver, not elsewhere classified (principal) | CPT/HCPCS: 76705 ==